=== PATIENT | male | born 1950 | race Caucasian/White ===

== ENCOUNTER 2018-07-22 18:21 | Inpatient (IN) | payer MEDICARE, OTHER, SELFPAY ==
[2018-07-22] VITALS (16 sets, daily range): BP systolic 125–143; BP diastolic 51–81; PULSE 116–129; RESP 20–38; TEMP 35.7–37.3; O2SAT 93–98; BMI 23.2; BMI 22.4
--- NOTE | 2018-07-22 19:06 | RAD_ITS ---
STUDY: X-RAY CHEST REASON FOR EXAM: Male, 68 years old. Cough, dyspnea TECHNIQUE: Single frontal view COMPARISON: None. FINDINGS: Sternotomy wires of the mediastinum. The lungs are expanded. Right basilar consolidation. Normal size heart. Normal mediastinum and kyra. Normal visualized pulmonary arteries. Calcified aortic arch and descending thoracic aorta. Normal visualized thoracic spine. Normal visualized ribs, clavicles, and shoulders. There is no demonstrated abnormality of the visualized soft tissue structures of the upper abdomen. RAD/Chest 1 View (Portable) IMPRESSION: Right basilar consolidation. Electronically Signed: César Moore DO at 21:11 EDT Tel [phone], Service support ,
--- NOTE | 2018-07-22 19:07 | EKG12_ITS ---
Test Reason : Blood Pressure : / mmHG Vent. Rate : 122 BPM Atrial Rate : 122 BPM P-R Int : 224 ms QRS Dur : 108 ms QT Int : 332 ms P-R-T Axes : 047 027 151 degrees QTc Int : 473 ms Sinus tachycardia with 1st degree A-V block Incomplete left bundle branch block ST & T wave abnormality, consider inferolateral ischemia Abnormal ECG Confirmed by DENIS CONROY, VILLA ([id number]), map editor CHAVO POMPA ([id number]) on 07/25/2018 1:48:28 PM Referred By: Gulshan Cabrera Confirmed By:VILLA BARRIOS MD
--- NOTE | 2018-07-22 19:13 | ED.DCSUM_ITS ---
- ER Visit Summary Date of Service: 07/22/18 Chief Complaint: Generalized weakness and nosebleed History of Present Illness: The patient is a 68 M history of myelodysplastic syndrome in which she gets blood transfusions. Acs-ycbbxry-wjfeyaqyp diabetes CAD, IN and CHF. Patient states he has not felt well recently. He has been so weak all over. Today he developed a nosebleed. He is on both Plavix and aspirin. He denies any nasal trauma. He denies any hematemesis or melena. He denies any fever but has had a cough and some vomiting. Physical Examination: Elderly male appears ill and weak. Vital signs are stable temperature 991 on oxygen he is 93%. HEENT exam mild nosebleed bilaterally. The nosebleed as she looks like is coming from the tip of his nose and not even inside of it. It looks like there is some abrasion there that was causing the bleeding. Very dry mucous membranes. Atraumatic face and scalp. Neck nontender no JVD. Lungs coarse breath sounds. Diminished right base. Heart tachycardic no murmur. Abdomen soft and nontender. No peritoneal signs. Moving all 4 extremities. Calves nontender without edema. Back nontender. Neurologically is awake and alert with no focal motor deficits. Test Results: Chest x-ray appears to have a right lower lobe opacification consistent with a right lower lobe pneumonia. No old chest x-rays available for comparison. EKG sinus tachycardia rate of 122 with a left bundle branch block of elbow for comparison. CBC shows a white count of 7. Hemoglobin 5.7 platelet count 126. Again no old labs available for comparison. Electrolytes unremarkable gap is 7 creatinine 1.1. INR normal. UA pending is not tried to make urine as of yet. Troponin is normal. Emergency Department Course and Treatment: Elderly male with generalized weakness. Clinically looks dehydrated and is tachycardic. Also with a nosebleed. Afrin nasal soaked cotton balls of both nasal passageways to stop the bleeding. Patient started on IV Rocephin and Zithromax his right lower lobe pneumonia. He has been typed and crossed and we have ordered 2 units to be transfused which were waiting on. He is already spoken to the hospitalist is down in the emergency department and will evaluate the patient for admission to either PCU or ICU. Treatment Plan: Admission for IV antibiotics. Disposition: Admission Impression: Acute right lower lobe pneumonia with hypoxia Acute on chronic anemia with a history of myelodysplastic syndrome In need of blood transfusions x2 Acute nosebleed Right anterior nasal pack placed by ER (Merisel pack) Anticoagulated on Plavix and aspirin Hypoxia This note was generated with [employer] dictation software. It may contain incorrect words, spelling, and punctuation that were not noted in review of the chart prior to signing
[2018-07-22] MEDS: 0.9% Normal Saline 1,000 ML 1000 ML IV (19:21)
[2018-07-22 19:28] LABS: Absolute Lymphocyte Count 0.65 X10^3/ul (0.83-4.51); Absolute Neutrophil Count 6.5 X10^3/uL (2.0-7.7); Basophil# 0.01 X10^3/uL; Basophil% 0.1 % (0-1); Hematocrit 17.8 % (40-54); International Normalized Ratio 1.6; Lymphocyte # 0.65 X10^3/ul (4.0); Lymphocyte % 8.2 % (19-41); Mean Corpuscular Hgb 28.4 pg (27.0-32.0); Mean Corpuscular Volume 88.6 fL (80-94); Mean Platelet Vol. 10.1 fl (6.2-12.0); Monocyte% 8.9 % (0-10); Neutrophil # 6.48 X10^3/uL (2.7-7.7); Platelet Count 126 K/mm3 (150-450); Prothrombin Time (Protime)PT. 18.7 SECONDS (11.7-14.9); RBC Distribution Width CV 20.8 % (11.6-14.6); RBC Distribution Width SD 67.7 fl (35.1-43.9); Red Blood Count 2.01 M/mm3 (4.6-6.2); White Blood Count 7.9 K/mm3 (4.4-11.0)
[2018-07-22 19:30] LABS: Differential Indicated SCAN CRITERIA MET; POSITIVE COUNT YES; POSITIVE DIFFERENTIAL NO; POSITIVE MORPHOLOGY YES
[2018-07-22 19:31] LABS: Hemoglobin 5.7 g/dl (13.0-16.5)
--- NOTE | 2018-07-22 19:34 | ED.RN ---
dr. taylor informed of pt hemoglobin 5.7.
[2018-07-22 19:37] LABS: Anion Gap 7 (5-15); BUN 21 mg/dL (7-18); BUN/Creat Ratio 18.1 RATIO (10-20); Calcium,Total 8.4 mg/dL (8.5-10.1); Chloride 108 mmol/L (98-107); Creatinine, Serum 1.16 mg/dL (0.70-1.30); EST Glomerular Filtration Rate 66 mL/min (>60); Est Glom Filt Rate - Afr Amer 80 mL/min (>60); Estimated Creatinine Clearance 59.26 ml/min; Glucose 138 mg/dL (74-106); Potassium 3.8 mmol/L (3.5-5.1); Sodium Level 138 mmol/L (136-145)
[2018-07-22 19:48] LABS: Anisocytosis 2+; Differential Comment SCANNED; Ovalocyte 1+
--- NOTE | 2018-07-22 20:33 | NURSING ---
[facility] AND TALKED TO CYNTHIA AND WAS INFORMED THEY HAD NO AVAILABLE BEDS AND PATIENT CAN BE ADMITTED HERE
[2018-07-22] MEDS: Oxymetazoline 0.05% 1 SPRAY SPRAY.BTL 2 SPRAY NASAL (20:38)
[2018-07-22 20:51] LABS: Lactic Acid 1.8 mmol/L (0.4-2.0)
[2018-07-22 20:59] LABS: Bacteria 0 SEEN /hpf (None Seen); Mucous, Urine 0 SEEN /hpf (<or=2+); Red Blood Cells-Urine 0 SEEN /hpf (0-5); Squamous Epithelial Cells - UA 0 SEEN /hpf (0-5)
[2018-07-22 21:12] LABS: Color, Urine Yellow (Yellow); Glucose, Dipstick Normal (Normal); Ketone-Dipstick 15 mg/dl (Negative); Leukocyte Esterase-Dipstick 25 /ul (Negative); Nitrite-Dipstick Negative (Negative); Occult Blood-Urine 25 /ul (Negative); Protein-Dipstick 100 mg/dl (Negative); Specific Gravity, Urine 1.015 (1.002-1.030); Urine Clarity Clear (Clear); Urine Urobilinogen 4 mg/dl (Normal)
[2018-07-22] MEDS: Ceftriaxone 1 GM/50 ML BAG IV (21:13)
[2018-07-22 21:16] LABS: Urine Bilirubin Dipstick 1 mg/dL (Negative)
[2018-07-22 21:22] LABS: Amorphous Sediment 1+; White Blood Cells 0-5 SEEN /hpf (0-5)
--- NOTE | 2018-07-22 21:29 | HP.PCM_ITS ---
Problem List (1) Generalized weakness Status: Acute (2) Epistaxis Status: Acute History of Present Illness Date of Admission: 07/22/18 Chief Complaint: Epistaxis, generalized weakness The patient is a 68 year old M who was seen in the emergency room at [facility] with chief complaint of generalized weakness over the last several days along with a nosebleed today. Patient has a history of MDS and states that he receives blood transfusions monthly from the [facility]. Patient sees physicians at the [facility] and has no records at this facility. Patient complains of a cough but states he has been coughing over the last several months. Evaluation in the emergency room included a chest x-ray which showed a right lower lobe infiltrate, patient's white blood cell count was normal, patient's he moglobin was 5.7, platelet count was 126,000. Patient's glucose was 138, BUN was slightly elevated at 21, otherwise patient's chemistry profile was unremarkable. Patient's urinalysis did not indicate a urinary tract infection. Patient required 2 L of oxygen to maintain his pulse ox above 90%. Patient's nosebleed was minor, small amount of packing was applied to the nares and bleeding stopped immediately. Patient will be admitted for acute on chronic anemia secondary to MDS, right lower lobe community-acquired pneumonia, and hypoxia. Past Medical History Allergies No Known Allergies Allergy (Verified 07/22/18 18:24) Home Medications: Ambulatory Orders Medication Instructions Recorded Acetaminophen 325 mg PO Q6H PRN PRN 07/22/18 Aspirin [Adult Aspirin Regimen] 81 mg PO DAILY 07/22/18 Atorvastatin Calcium 40 mg PO QHS 07/22/18 Cholecalciferol (Vitamin D3) 2,000 unit PO DAILY 07/22/18 [Vitamin D3] Clopidogrel Bisulfate [Clopidogrel] 75 mg PO DAILY 07/22/18 Gabapentin [Neurontin] 300 mg PO QHS 07/22/18 Metoprolol Tartrate [Lopressor 50 mg PO BID 07/22/18 (Beta Maria Esther)] Sertraline HCl 150 mg PO DAILY 07/22/18 traZODone [Desyrel] 50 mg PO QHS 07/22/18 Surgical History: coronary bypass surgery, - - Aortic valve replacement Psychiatric History: No pertinent psych hx Lives: Alone Smoking Status: Current every day smoker Tobacco Use: Cigarettes Alcohol: None Drugs: None - *Family History Maternal History Items: No pertinent history Paternal History Items: No pertinent history Review of Systems Constitutional: Reports: Weakness, Fatigue. Denies: Anorexia, Chills, Fever, Night Sweats, Weight Change Eyes: Denies: Cataracts, Conjunctivae Inflammation, Double vision, Drainage, Redness, Vision Change HEENT: Reports: - - Nosebleed which started today from both nostrils. Denies: Difficulty Swallowing, Dysphasia, Ear Pain, Eye Pain, Head Aches, Hearing Changes, Nasal Congestion, Post Nasal Drip Cardiovascular: Denies: Chest Pain, Claudication, Chest Pressure, Chest Tightness, Edema, Heaviness, Orthopnea, Palpitations, Paroxysmal Noc. Dyspnea Respiratory: Reports: Cough - Chronic nonproductive cough. Denies: Hemoptysis, Pleuritic Pain, Shortness of Breath, Shortness of breath at rest, Shortness of breath upon exertion, Sputum production, Wheezing Gastrointestinal: Denies: Abdominal Pain, Constipation, Diarrhea, Hematemesis, Hematochezia, Nausea, Melena, Vomiting Genitourinary: Denies: Dysuria, Frequency, Hematuria, Hesitancy, Nocturia, Retention, Urgency Musculoskeletal: Denies: Back Pain, Foot Pain, Hand Pain, Joint Pain, Joint stiffness, Joint swelling, Joint Tenderness, Leg Pain Skin: Denies: Dryness, Jaundice, Pruritis, Rash Neurological: Denies: Blurred vision, Double vision, Change in Speech, Slurred speech, Difficulty swallowing, Focal weakness, Headaches, Incoordination, Numbness, Tingling Psychiatric: Denies: Anxiety, Depression, Homicidal Ideations, Suicidal Ideations Endocrine: Denies: Change in Body Habitus, Heat/ Cold Intolerance, Polydipsia, Polyuria Hematologic/ Lymphatic: Denies: Adenopathy, Anemia, Easy Bruising, Easy B leeding, Petechiae, Purpura VTE Information - Inpt Only VTE Present on Admission: No VTE Mechan Device Prophylaxis: SCD's VTE Pharm Prophylaxis ordered?: No Reason prophylaxis not ordered:: Medical Contraindication - Severe anemia, nosebleed Patient Problems: Active and Suspected Problems Generalized weakness (Acute) Epistaxis (Acute) - Physical Exam General: Alert, Oriented x3, Cooperative, No apparent distress, Well developed, - - Patient appears frail HEENT: Atraumatic, PERRLA, EOMI, Normocephalic Oral: Moist Mucosa Neck: Supple, No JVD, Negative Carotid Bruits, Trachea Midline, Thyroid Normal Size and Texture Lungs: Normal air movement, No rhonchi, No wheeze, Diminished - Managed breath sounds over the patient's right lower lobe Cardiovascular: Regular rate, Regular Rhythm, Normal S1, No murmurs, PMI Normal, No rub noted, Tachycardic Abdomen: Bowel Sounds Present, Soft, Non Tender, Non-Distended, No hernias noted Extremities: No clubbing, No cyanosis, No edema, Capillary Refill Less than 3 Seconds Skin: No rashes, No breakdown Musculoskeletal: No Tenderness to Palpation of Joints or Extremities Neurological: Cranial nerves II-XII grossly intact, Neuro grossly intact, Muscle tone normal, Sensory exam intact to light touch and pain Psych/Mental Status: Normal Affect, Appropriate, Alert and oriented to time, place, person, mood and affect Vital Signs Temp Pulse Resp BP Pulse Ox 98.0 F 123 H 30 H 136/62 H 96 07/22/18 20:02 07/22/18 20:56 07/22/18 20:56 07/22/18 20:56 07/22/18 20:56 Oxygen Flow Rate (L/min) 2 Oxygen Delivery Method Nasal Cannula Weight: 71.3 kg Body Mass Index (BMI) 23.2 Laboratory Tests Past 24 Hrs 07/22/18 07/22/18 07/22/18 18:40 18:40 18:40 WBC 7.9 RBC 2.01 L Hgb 5.7 L* Hct 17.8 L MCV 88.6 MCH 28.4 MCHC 32.0 RDW 20.8 H RDW Differential 67.7 H Plt Count 126 L MPV 10.1 Immature Gran % (Auto) 0.800 Neut % (Auto) 82.0 H Lymph % (Auto) 8.2 L Placer % (Auto) 8.9 Eos % (Auto) 0.0 Baso % (Auto) 0.1 Absolute Neuts (auto) 6.5 Absolute Lymphs (auto) 0.65 L Total Counted Not Reportable Differential Comment SCANNED Anisocytosis 2+ Ovalocytes 1+ PT 18.7 H INR 1.6 Sodium 138 Potassium 3.8 Chloride 108 H Carbon Dioxide 23.0 Anion Gap 7 BUN 21 H Creatinine 1.16 Estim Creat Clear Calc 59.26 Est GFR (MDRD) Af Amer 80 Est GFR (MDRD) Non-Af 66 BUN/Creatinine Ratio 18.1 Glucose 138 H Lactic Acid Calcium 8.4 L Troponin I < 0.015 Urine Color Urine Clarity Urine pH Ur Specific [place] Urine Protein Urine Glucose (UA) Urine Ketones Urine Occult Blood Urine Nitrite Urine Bilirubin Urine Urobilinogen Ur Leukocyte Esterase Urine RBC Urine WBC Ur Squamous Epith Cells Amorphous Sediment Urine Bacteria Urine Mucus Blood Type Antibody Screen Crossmatch 07/22/18 07/22/18 07/22/18 18:40 19:35 20:55 WBC RBC Hgb Hct MCV MCH MCHC RDW RDW Differential Plt Count MPV Immature Gran % (Auto) Neut % (Auto) Lymph % (Auto) Placer % (Auto) Eos % (Auto) Baso % (Auto) Absolute Neuts (auto) Absolute Lymphs (auto) Total Counted Differential Comment Anisocytosis Ovalocytes PT INR Sodium Potassium Chloride Carbon Dioxide Anion Gap BUN Creatinine Estim Creat Clear Calc Est GFR (MDRD) Af Amer Est GFR (MDRD) Non-Af BUN/Creatinine Ratio Glucose Lactic Acid 1.8 Calcium Troponin I Urine Color Yellow Urine Clarity Clear Urine pH 5.0 Ur Specific [place] 1.015 Urine Protein 100 H Urine Glucose (UA) Normal Urine Ketones 15 H Urine Occult Blood 25 H Urine Nitrite Negative Urine Bilirubin 1 H Urine Urobilinogen 4 H Ur Leukocyte Esterase 25 H Urine RBC 0 SEEN Urine WBC 0-5 SEEN Ur Squamous Epith Cells 0 SEEN Amorphous Sediment 1+ Urine Bacteria 0 SEEN Urine Mucus 0 SEEN Blood Type B POSITIVE Antibody Screen NEGATIVE Crossmatch See Detail Assessment/Plan All Active Problems Generalized weakness (Acute) Epistaxis (Acute) #1 acute on chronic anemia secondary to MDS-patient will be admitted to PCU, he will have packed red blood cells administered, labs will be monitored #2 right lower lobe community-acquired pneumonia-patient was given Rocephin and Zithromax, he will remain on these medications, urine antigens for Legionella and strep were ordered, sputum culture was ordered #3 coronary artery disease-this appears stable at this time #4 MDS #5 type 2 diabetes-it appears patient takes no medications for his type 2 diabetes, blood sugars will be monitored #6 hypoxia secondary to #2 Code Visit Inpatient E&M: 29214 Init Hosp L3
--- NOTE | 2018-07-22 22:57 | ED.RN ---
PT RIGHT NOSTRIL STILL BLEEDING SLOWLY. DR KRUEGER INFORMED. NOSE PACKED BY DR. KRUEGER USING MEROCEL.
[2018-07-22] MEDS: Metoprolol Tartrate 50 MG Tablet PO (23:50)
[2018-07-22] MEDS: 0.9% Normal Saline 1,000 ML 75 ML IV (23:51)
[2018-07-23] VITALS (25 sets, daily range): BP systolic 133–148; BP diastolic 61–78; PULSE 90–153; RESP 20–28; TEMP 36.7–37.1; O2SAT 82–100
[2018-07-23 00:05] LABS: Bedside Glucose 134 mg/dL (70-110)
[2018-07-23] MEDS: Furosemide 40 MG/4 ML Vial IV ×2 (00:08→12:18)
[2018-07-23 04:56] LABS: Absolute Lymphocyte Count 0.57 X10^3/ul (0.83-4.51); Absolute Neutrophil Count 6.7 X10^3/uL (2.0-7.7); BUN 21 mg/dL (7-18); Basophil# 0.02 X10^3/uL; Basophil% 0.2 % (0-1); Creatinine, Serum 1.09 mg/dL (0.70-1.30); Eosinophil# 0.01 X10^3/uL; Eosinophils% 0.1 % (0-5); Estimated Creatinine Clearance 61.01 ml/min; Glucose 139 mg/dL (74-106); Hemoglobin 7.9 g/dl (13.0-16.5); Lymphocyte # 0.57 X10^3/ul (4.0); Lymphocyte % 6.8 % (19-41); Mean Corp Hgb Conc 32.9 g/gl (32-36); Mean Corpuscular Hgb 28.5 pg (27.0-32.0); Mean Corpuscular Volume 86.6 fL (80-94); Monocyte# 0.92 X10^3/uL; Monocyte% 10.9 % (0-10); Neutrophil # 6.71 X10^3/uL (2.7-7.7); Neutrophil % 79.7 % (47-70); Platelet Count 125 K/mm3 (150-450); RBC Distribution Width CV 18.1 % (11.6-14.6); RBC Distribution Width SD 54.4 fl (35.1-43.9); Red Blood Count 2.77 M/mm3 (4.6-6.2); White Blood Count 8.4 K/mm3 (4.4-11.0)
[2018-07-23 04:57] LABS: Anion Gap 9 (5-15); BUN/Creat Ratio 19.3 RATIO (10-20); Calcium,Total 7.8 mg/dL (8.5-10.1); Chloride 110 mmol/L (98-107); EST Glomerular Filtration Rate 71 mL/min (>60); Est Glom Filt Rate - Afr Amer 86 mL/min (>60); POSITIVE COUNT YES; POSITIVE DIFFERENTIAL YES; POSITIVE MORPHOLOGY YES; Potassium 3.5 mmol/L (3.5-5.1); Sodium Level 141 mmol/L (136-145)
[2018-07-23 04:58] LABS: Differential Indicated SCAN CRITERIA MET
[2018-07-23 06:51] LABS: Bedside Glucose 129 mg/dL (70-110)
[2018-07-23] MEDS: Ipratropium/Albuterol Sulfate 3 ML AMPUL.NEB INHALATION ×3 (07:32→19:32)
[2018-07-23] MEDS: BMX LIQUID 180 ML 10 ML PO ×2 (08:10→23:04)
[2018-07-23] MEDS: Sertraline 100 MG Tablet 150 MG PO (08:10)
[2018-07-23] MEDS: Aspirin E.C. 81 MG Tablet PO (08:10)
[2018-07-23] MEDS: Metoprolol Tartrate 50 MG Tablet PO ×2 (08:10→22:59)
--- NOTE | 2018-07-23 10:11 | NURSING ---
Student nurse charting reviewed.
[2018-07-23] MEDS: Menthol/Lanolin/Calamine/Znox 113 GM Tube 1 APPLIC TOPICAL ×2 (11:24→22:58)
[2018-07-23 11:45] LABS: Bedside Glucose 137 mg/dL (70-110)
--- NOTE | 2018-07-23 11:56 | PCM.PROGNOTE ---
<Elizabeth Lee - Last Filed: 07/23/18 12:57> Patient Problems: Active and Suspected Problems Generalized weakness (Acute) Epistaxis (Acute) Subjective: Patient seen and examined. Reports increased work of breathing this morning. Denies chest pain. Reports productive cough with white/yellow sputum. Denies fever, chills. - Physical Exam General: Alert, Oriented x3, Cooperative HEENT: Atraumatic, PERRLA, EOMI, Normocephalic, - - Right nasal packing Oral: Dry Mucosa, - - Dried blood in mouth Neck: Supple, No JVD, Negative Carotid Bruits Lungs: Diminished, Rhonchi, - - Coarse breath sounds bilaterally Cardiovascular: Regular rate, Regular Rhythm, Normal S1, Normal S2, No murmurs Abdomen: Bowel Sounds Present, Soft, Non Tender, Non-Distended Extremities: No clubbing, No cyanosis, No edema, Capillary Refill Less than 3 Seconds Skin: No rashes, No breakdown Musculoskeletal: No Tenderness to Palpation of Joints or Extremities Neurological: Cranial nerves II-XII grossly intact, Neuro grossly intact Psych/Mental Status: Normal Affect, Appropriate Vital Signs Temp Pulse Resp BP Pulse Ox 98.4 F 94 20 H 146/75 H 93 07/23/18 10:05 07/23/18 10:05 07/23/18 10:05 07/23/18 10:05 07/23/18 10:05 Oxygen Flow Rate (L/min) 2 Oxygen Delivery Method Nasal Cannula Weight: 151 lb 14.376 oz Body Mass Index (BMI) 22.4 Intake and Output for Last 24 Hours 07/21/18 07/22/18 07/23/18 23:59 23:59 23:59 Intake Total 724 / 724 1552 / 1552 Output Total 950 / 950 Balance 724 / 724 602 / 602 Microbiology Past 72 Hours 07/23/18 00:50 Legionella Antigen - Final Urine, Clean Catch 07/23/18 00:50 Streptococcus pneumoniae Antigen (M - Final Urine, Clean Catch Laboratory Tests Past 24 Hrs 07/22/18 07/22/18 07/22/18 18:40 18:40 18:40 WBC 7.9 RBC 2.01 L Hgb 5.7 L* Hct 17.8 L MCV 88.6 MCH 28.4 MCHC 32.0 RDW 20.8 H RDW Differential 67.7 H Plt Count 126 L MPV 10.1 Immature Gran % (Auto) 0.800 Neut % (Auto) 82.0 H Lymph % (Auto) 8.2 L [place] % (Auto) 8.9 Eos % (Auto) 0.0 Baso % (Auto) 0.1 Absolute Neuts (auto) 6.5 Absolute Lymphs (auto) 0.65 L Total Counted Not Reportable Differential Comment SCANNED Diff Path Review Anisocytosis 2+ Ovalocytes 1+ PT 18.7 H INR 1.6 Sodium 138 Potassium 3.8 Chloride 108 H Carbon Dioxide 23.0 Anion Gap 7 BUN 21 H Creatinine 1.16 Estim Creat Clear Calc 59.26 Est GFR (MDRD) Af Amer 80 Est GFR (MDRD) Non-Af 66 BUN/Creatinine Ratio 18.1 Glucose 138 H Lactic Acid Calcium 8.4 L Troponin I < 0.015 Urine Color Urine Clarity Urine pH Ur Specific [place] Urine Protein Urine Glucose (UA) Urine Ketones Urine Occult Blood Urine Nitrite Urine Bilirubin Urine Urobilinogen Ur Leukocyte Esterase Urine RBC Urine WBC Ur Squamous Epith Cells Amorphous Sediment Urine Bacteria Urine Mucus Blood Type Antibody Screen Crossmatch 07/22/18 07/22/18 07/22/18 18:40 19:35 20:55 WBC RBC Hgb Hct MCV MCH MCHC RDW RDW Differential Plt Count MPV Immature Gran % (Auto) Neut % (Auto) Lymph % (Auto) [place] % (Auto) Eos % (Auto) Baso % (Auto) Absolute Neuts (auto) Absolute Lymphs (auto) Total Counted Differential Comment Diff Path Review Anisocytosis Ovalocytes PT INR Sodium Potassium Chloride Carbon Dioxide Anion Gap BUN Creatinine Estim Creat Clear Calc Est GFR (MDRD) Af Amer Est GFR (MDRD) Non-Af BUN/Creatinine Ratio Glucose Lactic Acid 1.8 Calcium Troponin I Urine Color Yellow Urine Clarity Clear Urine pH 5.0 Ur Specific [place] 1.015 Urine Protein 100 H Urine Glucose (UA) Normal Urine Ketones 15 H Urine Occult Blood 25 H Urine Nitrite Negative Urine Bilirubin 1 H Urine Urobilinogen 4 H Ur Leukocyte Esterase 25 H Urine RBC 0 SEEN Urine WBC 0-5 SEEN Ur Squamous Epith Cells 0 SEEN Amorphous Sediment 1+ Urine Bacteria 0 SEEN Urine Mucus 0 SEEN Blood Type B POSITIVE Antibody Screen NEGATIVE Crossmatch See Detail 07/23/18 07/23/18 04:30 04:30 WBC 8.4 RBC 2.77 L Hgb 7.9 L Hct 24.0 L MCV 86.6 MCH 28.5 MCHC 32.9 RDW 18.1 H RDW Differential 54.4 H Plt Count 125 L MPV 10.0 Immature Gran % (Auto) 2.300 H Neut % (Auto) 79.7 H Lymph % (Auto) 6.8 L [place] % (Auto) 10.9 H Eos % (Auto) 0.1 Baso % (Auto) 0.2 Absolute Neuts (auto) 6.7 Absolute Lymphs (auto) 0.57 L Total Counted Not Reportable Differential Comment Diff Path Review May foll Anisocytosis Ovalocytes PT INR Sodium 141 Potassium 3.5 Chloride 110 H Carbon Dioxide 22.0 Anion Gap 9 BUN 21 H Creatinine 1.09 Estim Creat Clear Calc 61.01 Est GFR (MDRD) Af Amer 86 Est GFR (MDRD) Non-Af 71 BUN/Creatinine Ratio 19.3 Glucose 139 H Lactic Acid Calcium 7.8 L Troponin I Urine Color Urine Clarity Urine pH Ur Specific [place] Urine Protein Urine Glucose (UA) Urine Ketones Urine Occult Blood Urine Nitrite Urine Bilirubin Urine Urobilinogen Ur Leukocyte Esterase Urine RBC Urine WBC Ur Squamous Epith Cells Amorphous Sediment Urine Bacteria Urine Mucus Blood Type Antibody Screen Crossmatch POC Glucose 07/23/18 07/23/18 07/22/18 11:24 06:38 23:49 POC Glucose 137 H 129 H 134 H Medical Necessity - Tobacco Use Smoking Status: Current every day smoker Tobacco Use: Cigarettes Assessment/Plan All Active Problems Generalized weakness (Acute) Epistaxis (Acute) 1. 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 Trend CBC. 2. Acute hypoxia secondary to right lower lobe community-acquired pneumonia-chest x-ray admission with right basilar consolidation. Send sputum for culture. Continue supplement oxygen to maintain O2 at or above 90%. Albuterol and DuoNeb aerosol. Continue IV azithromycin and IV Rocephin. Urine for strep and Legionella negative. Blood cultures pending. IS/PEP. 3. Acute Epistaxis, right nasal packing in place- placed in ER. Hold aspirin, plavix. Outpatient f/u with ENT. 4. CAD-continue metoprolol, statin. Hold aspirin, Plavix. Patient denies history of stents. Unsure why he is on dual antiplatelet therapy. Will request records from [place]. 5. History of aortic valve repair 6. Type 2 diabetes mellitus-not on regimen. Accu-Cheks AC at bedtime with sliding scale insulin. Check hemoglobin A1c. 7. Depression-continue home sertraline/trazodone regimen. DVT prophylaxis-hold pharmacologic prophylaxis given epistaxis, SCDs. This patient was seen by RILEY Ramirez under the supervision of Dr. Ann. <Arvind Ann - Last Filed: 07/23/18 16:00> Subjective: No fever or chills. Patient has productive cough and audible wheezing. Respiratory rate 22-26/min. On 2 L of oxygen. Patient is edentulous and suspicion of aspiration. Patient has MDS and had epistaxis. Right nasal packing. H&H was 5.7/17.8 improved to 7.9/24. Platelet count 126,000. - Physical Exam General: Alert, Oriented x3, Cooperative HEENT: Atraumatic, PERRLA, EOMI, Normocephalic, - Oral: - - Dried blood in mouth Since patient pockets food in his mouth. Neck: Supple, No JVD, Negative Carotid Bruits Lungs: Diminished, Rhonchi, Short of Breath, Tachypneic, Wheezes, - Cardiovascular: Regular rate, Regular Rhythm, Normal S1, Normal S2, No murmurs Abdomen: Bowel Sounds Present, Soft, Non Tender, Non-Distended Extremities: No edema, Capillary Refill Less than 3 Seconds Skin: No rashes, No breakdown Musculoskeletal: No Tenderness to Palpation of Joints or Extremities, Arthritic Changes, Muscle Wasting Lymphatic: No Cervical, Supraclavicular, or Inguinal Adenopathy Neurological: Cranial nerves II-XII grossly intact, Deep Tendon Reflexes 2+/4 and Symmetrical, Neuro grossly intact Psych/Mental Status: Normal Affect, Appropriate Vital Signs Temp Pulse Resp BP Pulse Ox 98.1 F 106 H 22 H 136/75 H 99 07/23/18 14:01 07/23/18 15:00 07/23/18 14:01 07/23/18 14:01 07/23/18 14:01 Oxygen Flow Rate (L/min) 2 Oxygen Delivery Method Room Air Weight: 151 lb 14.376 oz Body Mass Index (BMI) 22.4 Intake and Output for Last 24 Hours 07/21/18 07/22/18 07/23/18 23:59 23:59 23:59 Intake Total 724 / 724 1842 / 1842 Output Total 1550 / 1550 Balance 724 / 724 292 / 292 Microbiology Past 72 Hours 07/23/18 00:50 Legionella Antigen - Final Urine, Clean Catch 07/23/18 00:50 Streptococcus pneumoniae Antigen (M - Final Urine, Clean Catch Laboratory Tests Past 24 Hrs 07/22/18 07/22/18 07/22/18 18:40 18:40 18:40 WBC 7.9 RBC 2.01 L Hgb 5.7 L* Hct 17.8 L MCV 88.6 MCH 28.4 MCHC 32.0 RDW 20.8 H RDW Differential 67.7 H Plt Count 126 L MPV 10.1 Immature Gran % (Auto) 0.800 Neut % (Auto) 82.0 H Lymph % (Auto) 8.2 L [place] % (Auto) 8.9 Eos % (Auto) 0.0 Baso % (Auto) 0.1 Absolute Neuts (auto) 6.5 Absolute Lymphs (auto) 0.65 L Total Counted Not Reportable Differential Comment SCANNED Diff Path Review Anisocytosis 2+ Ovalocytes 1+ PT 18.7 H INR 1.6 Sodium 138 Potassium 3.8 Chloride 108 H Carbon Dioxide 23.0 Anion Gap 7 BUN 21 H Creatinine 1.16 Estim Creat Clear Calc 59.26 Est GFR (MDRD) Af Amer 80 Est GFR (MDRD) Non-Af 66 BUN/Creatinine Ratio 18.1 Glucose 138 H Hemoglobin A1c Lactic Acid Calcium 8.4 L Troponin I < 0.015 Urine Color Urine Clarity Urine pH Ur Specific [place] Urine Protein Urine Glucose (UA) Urine Ketones Urine Occult Blood Urine Nitrite Urine Bilirubin Urine Urobilinogen Ur Leukocyte Esterase Urine RBC Urine WBC Ur Squamous Epith Cells Amorphous Sediment Urine Bacteria Urine Mucus Blood Type Antibody Screen Crossmatch 07/22/18 07/22/18 07/22/18 18:40 19:35 20:55 WBC RBC Hgb Hct MCV MCH MCHC RDW RDW Differential Plt Count MPV Immature Gran % (Auto) Neut % (Auto) Lymph % (Auto) [place] % (Auto) Eos % (Auto) Baso % (Auto) Absolute Neuts (auto) Absolute Lymphs (auto) Total Counted Differential Comment Diff Path Review Anisocytosis Ovalocytes PT INR Sodium Potassium Chloride Carbon Dioxide Anion Gap BUN Creatinine Estim Creat Clear Calc Est GFR (MDRD) Af Amer Est GFR (MDRD) Non-Af BUN/Creatinine Ratio Glucose Hemoglobin A1c Lactic Acid 1.8 Calcium Troponin I Urine Color Yellow Urine Clarity Clear Urine pH 5.0 Ur Specific [place] 1.015 Urine Protein 100 H Urine Glucose (UA) Normal Urine Ketones 15 H Urine Occult Blood 25 H Urine Nitrite Negative Urine Bilirubin 1 H Urine Urobilinogen 4 H Ur Leukocyte Esterase 25 H Urine RBC 0 SEEN Urine WBC 0-5 SEEN Ur Squamous Epith Cells 0 SEEN Amorphous Sediment 1+ Urine Bacteria 0 SEEN Urine Mucus 0 SEEN Blood Type B POSITIVE Antibody Screen NEGATIVE Crossmatch See Detail 07/23/18 07/23/18 07/23/18 04:30 04:30 04:30 WBC 8.4 RBC 2.77 L Hgb 7.9 L Hct 24.0 L MCV 86.6 MCH 28.5 MCHC 32.9 RDW 18.1 H RDW Differential 54.4 H Plt Count 125 L MPV 10.0 Immature Gran % (Auto) 2.300 H Neut % (Auto) 79.7 H Lymph % (Auto) 6.8 L [place] % (Auto) 10.9 H Eos % (Auto) 0.1 Baso % (Auto) 0.2 Absolute Neuts (auto) 6.7 Absolute Lymphs (auto) 0.57 L Total Counted Not Reportable Differential Comment Diff Path Review May foll Anisocytosis Ovalocytes PT INR Sodium 141 Potassium 3.5 Chloride 110 H Carbon Dioxide 22.0 Anion Gap 9 BUN 21 H Creatinine 1.09 Estim Creat Clear Calc 61.01 Est GFR (MDRD) Af Amer 86 Est GFR (MDRD) Non-Af 71 BUN/Creatinine Ratio 19.3 Glucose 139 H Hemoglobin A1c < 3.5 L Lactic Acid Calcium 7.8 L Troponin I Urine Color Urine Clarity Urine pH Ur Specific [place] Urine Protein Urine Glucose (UA) Urine Ketones Urine Occult Blood Urine Nitrite Urine Bilirubin Urine Urobilinogen Ur Leukocyte Esterase Urine RBC Urine WBC Ur Squamous Epith Cells Amorphous Sediment Urine Bacteria Urine Mucus Blood Type Antibody Screen Crossmatch POC Glucose 07/23/18 07/23/18 07/22/18 11:24 06:38 23:49 POC Glucose 137 H 129 H 134 H Assessment/Plan This patient was seen in conjunction with [employer]. I have independently interviewed and examined the patient and reviewed pertinent history, examination findings, laboratory and plan of management. I have reviewed the note and agree with the documented findings with the few additional points. In brief, patient is admitted for acute on chronic anemia with history of MDS with recent epistaxis. Had 2 units of PRBC transfusion. H&H was 5.7/17.8 improved to 7.9/24. Platelet count 126,000. Patient is still has tachypnea, hypoxia with mild tachycardia but no fever. Right lower lobe consolidation on chest x-ray. Was started on ceftriaxone and Zithromax but with risk of aspiration antibiotic changed to Zosyn. Speech therapy was consulted. Recommend dysphagia diet mechanical soft diet unless changed by speech therapist. I have discussed my assessment with [employer] and orders have been reviewed. Code Visit Inpatient E&M: 92029 Subs Hosp L2
--- NOTE | 2018-07-23 12:11 | PN_ITS ---
Addendum entered and electronically signed by RILEY Ramirez 07/23/18 12:58: Code Visit IV antibiotics changed to Zosyn given concerns for aspiration pneumonia. Speech therapy consulted. Original Note: <Elizabeth Lee - Last Filed: 07/23/18 12:57> Patient Problems: Active and Suspected Problems Generalized weakness (Acute) Epistaxis (Acute) Subjective: Patient seen and examined. Reports increased work of breathing this morning. Denies chest pain. Reports productive cough with white/yellow sputum. Denies fever, chills. - Physical Exam General: Alert, Oriented x3, Cooperative HEENT: Atraumatic, PERRLA, EOMI, Normocephalic, - - Right nasal packing Oral: Dry Mucosa, - - Dried blood in mouth Neck: Supple, No JVD, Negative Carotid Bruits Lungs: Diminished, Rhonchi, - - Coarse breath sounds bilaterally Cardiovascular: Regular rate, Regular Rhythm, Normal S1, Normal S2, No murmurs Abdomen: Bowel Sounds Present, Soft, Non Tender, Non-Distended Extremities: No clubbing, No cyanosis, No edema, Capillary Refill Less than 3 Seconds Skin: No rashes, No breakdown Musculoskeletal: No Tenderness to Palpation of Joints or Extremities Neurological: Cranial nerves II-XII grossly intact, Neuro grossly intact Psych/Mental Status: Normal Affect, Appropriate Vital Signs Temp Pulse Resp BP Pulse Ox 98.4 F 94 20 H 146/75 H 93 07/23/18 10:05 07/23/18 10:05 07/23/18 10:05 07/23/18 10:05 07/23/18 10:05 Oxygen Flow Rate (L/min) 2 Oxygen Delivery Method Nasal Cannula Weight: 151 lb 14.376 oz Body Mass Index (BMI) 22.4 Intake and Output for Last 24 Hours 07/21/18 07/22/18 07/23/18 23:59 23:59 23:59 Intake Total 724 / 724 1552 / 1552 Output Total 950 / 950 Balance 724 / 724 602 / 602 Microbiology Past 72 Hours 07/23/18 00:50 Legionella Antigen - Final Urine, Clean Catch 07/23/18 00:50 Streptococcus pneumoniae Antigen (M - Final Urine, Clean Catch Laboratory Tests Past 24 Hrs 03/29/19 03/29/19 03/29/19 18:40 18:40 18:40 WBC 7.9 RBC 2.01 L Hgb 5.7 L* Hct 17.8 L MCV 88.6 MCH 28.4 MCHC 32.0 RDW 20.8 H RDW Differential 67.7 H Plt Count 126 L MPV 10.1 Immature Gran % (Auto) 0.800 Neut % (Auto) 82.0 H Lymph % (Auto) 8.2 L [place] % (Auto) 8.9 Eos % (Auto) 0.0 Baso % (Auto) 0.1 Absolute Neuts (auto) 6.5 Absolute Lymphs (auto) 0.65 L Total Counted Not Reportable Differential Comment SCANNED Diff Path Review Anisocytosis 2+ Ovalocytes 1+ PT 18.7 H INR 1.6 Sodium 138 Potassium 3.8 Chloride 108 H Carbon Dioxide 23.0 Anion Gap 7 BUN 21 H Creatinine 1.16 Estim Creat Clear Calc 59.26 Est GFR (MDRD) Af Amer 80 Est GFR (MDRD) Non-Af 66 BUN/Creatinine Ratio 18.1 Glucose 138 H Lactic Acid Calcium 8.4 L Troponin I < 0.015 Urine Color Urine Clarity Urine pH Ur Specific [place] Urine Protein Urine Glucose (UA) Urine Ketones Urine Occult Blood Urine Nitrite Urine Bilirubin Urine Urobilinogen Ur Leukocyte Esterase Urine RBC Urine WBC Ur Squamous Epith Cells Amorphous Sediment Urine Bacteria Urine Mucus Blood Type Antibody Screen Crossmatch 07/22/18 07/22/18 07/22/18 18:40 19:35 20:55 WBC RBC Hgb Hct MCV MCH MCHC RDW RDW Differential Plt Count MPV Immature Gran % (Auto) Neut % (Auto) Lymph % (Auto) [place] % (Auto) Eos % (Auto) Baso % (Auto) Absolute Neuts (auto) Absolute Lymphs (auto) Total Counted Differential Comment Diff Path Review Anisocytosis Ovalocytes PT INR Sodium Potassium Chloride Carbon Dioxide Anion Gap BUN Creatinine Estim Creat Clear Calc Est GFR (MDRD) Af Amer Est GFR (MDRD) Non-Af BUN/Creatinine Ratio Glucose Lactic Acid 1.8 Calcium Troponin I Urine Color Yellow Urine Clarity Clear Urine pH 5.0 Ur Specific [place] 1.015 Urine Protein 100 H Urine Glucose (UA) Normal Urine Ketones 15 H Urine Occult Blood 25 H Urine Nitrite Negative Urine Bilirubin 1 H Urine Urobilinogen 4 H Ur Leukocyte Esterase 25 H Urine RBC 0 SEEN Urine WBC 0-5 SEEN Ur Squamous Epith Cells 0 SEEN Amorphous Sediment 1+ Urine Bacteria 0 SEEN Urine Mucus 0 SEEN Blood Type B POSITIVE Antibody Screen NEGATIVE Crossmatch See Detail 07/23/18 07/23/18 04:30 04:30 WBC 8.4 RBC 2.77 L Hgb 7.9 L Hct 24.0 L MCV 86.6 MCH 28.5 MCHC 32.9 RDW 18.1 H RDW Differential 54.4 H Plt Count 125 L MPV 10.0 Immature Gran % (Auto) 2.300 H Neut % (Auto) 79.7 H Lymph % (Auto) 6.8 L [place] % (Auto) 10.9 H Eos % (Auto) 0.1 Baso % (Auto) 0.2 Absolute Neuts (auto) 6.7 Absolute Lymphs (auto) 0.57 L Total Counted Not Reportable Differential Comment Diff Path Review May foll Anisocytosis Ovalocytes PT INR Sodium 141 Potassium 3.5 Chloride 110 H Carbon Dioxide 22.0 Anion Gap 9 BUN 21 H Creatinine 1.09 Estim Creat Clear Calc 61.01 Est GFR (MDRD) Af Amer 86 Est GFR (MDRD) Non-Af 71 BUN/Creatinine Ratio 19.3 Glucose 139 H Lactic Acid Calcium 7.8 L Troponin I Urine Color Urine Clarity Urine pH Ur Specific [place] Urine Protein Urine Glucose (UA) Urine Ketones Urine Occult Blood Urine Nitrite Urine Bilirubin Urine Urobilinogen Ur Leukocyte Esterase Urine RBC Urine WBC Ur Squamous Epith Cells Amorphous Sediment Urine Bacteria Urine Mucus Blood Type Antibody Screen Crossmatch POC Glucose 07/23/18 07/23/18 07/22/18 11:24 06:38 23:49 POC Glucose 137 H 129 H 134 H Medical Necessity - Tobacco Use Smoking Status: Current every day smoker Tobacco Use: Cigarettes Assessment/Plan All Active Problems Generalized weakness (Acute) Epistaxis (Acute) 1. 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 Trend CBC. 2. Acute hypoxia secondary to right lower lobe community-acquired pneumonia- chest x-ray admission with right basilar consolidation. Send sputum for culture. Continue supplement oxygen to maintain O2 at or above 90%. Albuterol and DuoNeb aerosol. Continue IV azithromycin and IV Rocephin. Urine for strep and Legionella negative. Blood cultures pending. IS/PEP. 3. Acute Epistaxis, right nasal packing in place- placed in ER. Hold aspirin, plavix. Outpatient f/u with ENT. 4. CAD-continue metoprolol, statin. Hold aspirin, Plavix. Patient denies history of stents. Unsure why he is on dual antiplatelet therapy. [facility] 5. History of aortic valve repair 6. Type 2 diabetes mellitus-not on regimen. Accu-Cheks AC at bedtime with sliding scale insulin. Check hemoglobin A1c. 7. Depression-continue home sertraline/trazodone regimen. DVT prophylaxis-hold pharmacologic prophylaxis given epistaxis, SCDs. This patient was seen by RILEY Ramirez under the supervision of Dr. Ann. <Arvind Ann - Last Filed: 07/23/18 16:00> Subjective: No fever or chills. Patient has productive cough and audible wheezing. R espiratory rate 22-26/min. On 2 L of oxygen. Patient is edentulous and suspicion of aspiration. Patient has MDS and had epistaxis. Right nasal packing. H&H was 5.7/17.8 improved to 7.9/24. Platelet count 126,000. - Physical Exam General: Alert, Oriented x3, Cooperative HEENT: Atraumatic, PERRLA, EOMI, Normocephalic, - Oral: - - Dried blood in mouth Since patient pockets food in his mouth. Neck: Supple, No JVD, Negative Carotid Bruits Lungs: Diminished, Rhonchi, Short of Breath, Tachypneic, Wheezes, - Cardiovascular: Regular rate, Regular Rhythm, Normal S1, Normal S2, No murmurs Abdomen: Bowel Sounds Present, Soft, Non Tender, Non-Distended Extremities: No edema, Capillary Refill Less than 3 Seconds Skin: No rashes, No breakdown Musculoskeletal: No Tenderness to Palpation of Joints or Extremities, Arthritic Changes, Muscle Wasting Lymphatic: No Cervical, Supraclavicular, or Inguinal Adenopathy Neurological: Cranial nerves II-XII grossly intact, Deep Tendon Reflexes 2+/4 and Symmetrical, Neuro grossly intact Psych/Mental Status: Normal Affect, Appropriate Vital Signs Temp Pulse Resp BP Pulse Ox 98.1 F 106 H 22 H 136/75 H 99 07/23/18 14:01 07/23/18 15:00 07/23/18 14:01 07/23/18 14:01 07/23/18 14:01 Oxygen Flow Rate (L/min) 2 Oxygen Delivery Method Room Air Weight: 151 lb 14.376 oz Body Mass Index (BMI) 22.4 Intake and Output for Last 24 Hours 07/21/18 07/22/18 07/23/18 23:59 23:59 23:59 Intake Total 724 / 724 1842 / 1842 Output Total 1550 / 1550 Balance 724 / 724 292 / 292 Microbiology Past 72 Hours 07/23/18 00:50 Legionella Antigen - Final Urine, Clean Catch 07/23/18 00:50 Streptococcus pneumoniae Antigen (M - Final Urine, Clean Catch Laboratory Tests Past 24 Hrs 07/22/18 07/22/18 07/22/18 18:40 18:40 18:40 WBC 7.9 RBC 2.01 L Hgb 5.7 L* Hct 17.8 L MCV 88.6 MCH 28.4 MCHC 32.0 RDW 20.8 H RDW Differential 67.7 H Plt Count 126 L MPV 10.1 Immature Gran % (Auto) 0.800 Neut % (Auto) 82.0 H Lymph % (Auto) 8.2 L [place] % (Auto) 8.9 Eos % (Auto) 0.0 Baso % (Auto) 0.1 Absolute Neuts (auto) 6.5 Absolute Lymphs (auto) 0.65 L Total Counted Not Reportable Differential Comment SCANNED Diff Path Review Anisocytosis 2+ Ovalocytes 1+ PT 18.7 H INR 1.6 Sodium 138 Potassium 3.8 Chloride 108 H Carbon Dioxide 23.0 Anion Gap 7 BUN 21 H Creatinine 1.16 Estim Creat Clear Calc 59.26 Est GFR (MDRD) Af Amer 80 Est GFR (MDRD) Non-Af 66 BUN/Creatinine Ratio 18.1 Glucose 138 H Hemoglobin A1c Lactic Acid Calcium 8.4 L Troponin I < 0.015 Urine Color Urine Clarity Urine pH Ur Specific [place] Urine Protein Urine Glucose (UA) Urine Ketones Urine Occult Blood Urine Nitrite Urine Bilirubin Urine Urobilinogen Ur Leukocyte Esterase Urine RBC Urine WBC Ur Squamous Epith Cells Amorphous Sediment Urine Bacteria Urine Mucus Blood Type Antibody Screen Crossmatch 07/22/18 07/22/18 07/22/18 18:40 19:35 20:55 WBC RBC Hgb Hct MCV MCH MCHC RDW RDW Differential Plt Count MPV Immature Gran % (Auto) Neut % (Auto) Lymph % (Auto) [place] % (Auto) Eos % (Auto) Baso % (Auto) Absolute Neuts (auto) Absolute Lymphs (auto) Total Counted Differential Comment Diff Path Review Anisocytosis Ovalocytes PT INR Sodium Potassium Chloride Carbon Dioxide Anion Gap BUN Creatinine Estim Creat Clear Calc Est GFR (MDRD) Af Amer Est GFR (MDRD) Non-Af BUN/Creatinine Ratio Glucose Hemoglobin A1c Lactic Acid 1.8 Calcium Troponin I Urine Color Yellow Urine Clarity Clear Urine pH 5.0 Ur Specific [place] 1.015 Urine Protein 100 H Urine Glucose (UA) Normal Urine Ketones 15 H Urine Occult Blood 25 H Urine Nitrite Negative Urine Bilirubin 1 H Urine Urobilinogen 4 H Ur Leukocyte Esterase 25 H Urine RBC 0 SEEN Urine WBC 0-5 SEEN Ur Squamous Epith Cells 0 SEEN Amorphous Sediment 1+ Urine Bacteria 0 SEEN Urine Mucus 0 SEEN Blood Type B POSITIVE Antibody Screen NEGATIVE Crossmatch See Detail 07/23/18 07/23/18 07/23/18 04:30 04:30 04:30 WBC 8.4 RBC 2.77 L Hgb 7.9 L Hct 24.0 L MCV 86.6 MCH 28.5 MCHC 32.9 RDW 18.1 H RDW Differential 54.4 H Plt Count 125 L MPV 10.0 Immature Gran % (Auto) 2.300 H Neut % (Auto) 79.7 H Lymph % (Auto) 6.8 L [place] % (Auto) 10.9 H Eos % (Auto) 0.1 Baso % (Auto) 0.2 Absolute Neuts (auto) 6.7 Absolute Lymphs (auto) 0.57 L Total Counted Not Reportable Differential Comment Diff Path Review May foll Anisocytosis Ovalocytes PT INR Sodium 141 Potassium 3.5 Chloride 110 H Carbon Dioxide 22.0 Anion Gap 9 BUN 21 H Creatinine 1.09 Estim Creat Clear Calc 61.01 Est GFR (MDRD) Af Amer 86 Est GFR (MDRD) Non-Af 71 BUN/Creatinine Ratio 19.3 Glucose 139 H Hemoglobin A1c < 3.5 L Lactic Acid Calcium 7.8 L Troponin I Urine Color Urine Clarity Urine pH Ur Specific [place] Urine Protein Urine Glucose (UA) Urine Ketones Urine Occult Blood Urine Nitrite Urine Bilirubin Urine Urobilinogen Ur Leukocyte Esterase Urine RBC Urine WBC Ur Squamous Epith Cells Amorphous Sediment Urine Bacteria Urine Mucus Blood Type Antibody Screen Crossmatch POC Glucose 0307/23/18 07/22/18 11:24 06:38 23:49 POC Glucose 137 H 129 H 134 H Assessment/Plan This patient was seen in conjunction with Elizabeth BARROSO. I have independently interviewed and examined the patient and reviewed pertinent history, examination findings, laboratory and plan of management. I have reviewed the note and agree with the documented findings with the few additional points. In brief, patient is admitted for acute on chronic anemia with history of MDS with recent epistaxis. Had 2 units of PRBC transfusion. H&H was 5.7/17.8 improved to 7.9/24. Platelet count 126,000. Patient is still has tachypnea, hypoxia with mild tachycardia but no fever. Right lower lobe consolidation on chest x-ray. Was started on ceftriaxone and Zithromax but with risk of aspiration antibiotic changed to Zosyn. Speech therapy was consulted. Recommend dysphagia diet mechanical soft diet unless changed by speech therapist. I have discussed my assessment with Elizabeth BARROSO and orders have been reviewed. Code Visit Inpatient E&M: 08163 Subs Hosp L2
--- NOTE | 2018-07-23 12:42 | CM.UR ---
RN CM Assessment Met face to face with patient for initial transition planning/care coordination assessment. Introduced myself and my role. Verb understanding and agreement for assessment. Presentation: PCP: Guerda Powers CERTIFIED REGISTERED [facility]OCKSM[facility] at [facility] Specialists: States he has Heme and cardio at [facility]: [facility] and [employer] part A only. Prescription Benefit: [facility] only. LNOK: No family local. friend Emre Kirby helps as needed Home: Apartment. 4 steps with railing. ADLs: Lives alone. States he does most things for himself but is currently [facility] into his home. DME: Grab bars, shower chair, handheld shower head and walker. SNF/HHC: Denies every having either. 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 states his daughter in [place] has been bugging him to move their to be with her since no family here any more. DC PLAN: TBD. Faxed records to [facility] at this time. Also alerted healthcare social worker at [facility] that he may need SNF. Guerda Gavin RN, CCM.
[2018-07-23 12:46] LABS: Hemoglobin A1c < 3.5 % (4.2-6.3)
[2018-07-23] MEDS: Albuterol 2.5 MG/3 ML VIAL.NEB. INHALATION (16:15)
[2018-07-23 16:20] LABS: Bedside Glucose 111 mg/dL (70-110)
[2018-07-23 17:37] LABS: Hematocrit 24.6 % (40-54); Hemoglobin 8.1 g/dl (13.0-16.5)
--- NOTE | 2018-07-23 21:35 | NURSING ---
Pt. pulled out nasal packing in R nare. No bleeding noted. Will continue to monitor.
[2018-07-23] MEDS: traZODone 50 MG Tablet 25 MG PO (22:58)
[2018-07-23] MEDS: Atorvastatin Calcium 20 MG Tablet PO (22:58)
[2018-07-23] MEDS: Gabapentin 300 MG Capsule PO (22:59)
[2018-07-23 23:26] LABS: Bedside Glucose 120 mg/dL (70-110)
[2018-07-24] VITALS (24 sets, daily range): BP systolic 117–146; BP diastolic 54–68; PULSE 77–99; RESP 14–26; TEMP 36.7–37.1; O2SAT 94–98
[2018-07-24 06:30] LABS: Hematocrit 20.3 % (40-54); Hemoglobin 6.6 g/dl (13.0-16.5); Mean Corp Hgb Conc 32.5 g/gl (32-36); Mean Corpuscular Hgb 28.2 pg (27.0-32.0); Mean Corpuscular Volume 86.8 fL (80-94); Mean Platelet Vol. 10.1 fl (6.2-12.0); Platelet Count 114 K/mm3 (150-450); RBC Distribution Width CV 18.9 % (11.6-14.6); RBC Distribution Width SD 58.8 fl (35.1-43.9); Red Blood Count 2.34 M/mm3 (4.6-6.2); White Blood Count 4.9 K/mm3 (4.4-11.0)
[2018-07-24 06:33] LABS: Scan Indicated on CBC? Y/N NO
[2018-07-24] MEDS: Ipratropium/Albuterol Sulfate 3 ML AMPUL.NEB INHALATION ×2 (06:59→19:50)
[2018-07-24 07:05] LABS: Bedside Glucose 94 mg/dL (70-110)
[2018-07-24] MEDS: Menthol/Lanolin/Calamine/Znox 113 GM Tube 1 APPLIC TOPICAL ×2 (09:24→21:15)
[2018-07-24] MEDS: Metoprolol Tartrate 50 MG Tablet PO ×2 (09:25→21:14)
[2018-07-24] MEDS: Sertraline 100 MG Tablet 150 MG PO (09:25)
[2018-07-24 11:16] LABS: Bedside Glucose 133 mg/dL (70-110)
[2018-07-24] MEDS: Furosemide 40 MG/4 ML Vial IV (13:29)
--- NOTE | 2018-07-24 15:34 | PN_ITS ---
<Elizabeth Lee - Last Filed: 07/24/18 15:34> Patient Problems: Active and Suspected Problems Generalized weakness (Acute) Epistaxis (Acute) Subjective: Patient seen and examined. Sitting up in chair, reports significant improvement in shortness of breath. Denies fever, chills. His nasal packing was removed overnight and he has not had further epistaxis. - Physical Exam General: Alert, Oriented x3, Cooperative HEENT: Atraumatic, PERRLA, EOMI, Normocephalic Oral: Dry Mucosa Neck: Supple, No JVD, Negative Carotid Bruits Lungs: Diminished, Rhonchi - Improved Cardiovascular: Regular rate, Regular Rhythm, Normal S1, Normal S2, No murmurs Abdomen: Bowel Sounds Present, Soft, Non Tender, Non-Distended Extremities: No clubbing, No cyanosis, No edema, Capillary Refill Less than 3 Seconds Skin: No rashes, No breakdown Musculoskeletal: No Tenderness to Palpation of Joints or Extremities Neurological: Cranial nerves II-XII grossly intact, Neuro grossly intact Psych/Mental Status: Normal Affect, Appropriate Vital Signs Temp Pulse Resp BP Pulse Ox 98.0 F 88 14 120/60 97 07/24/18 15:22 07/24/18 15:22 07/24/18 15:22 07/24/18 15:22 07/24/18 15:22 Oxygen Flow Rate (L/min) 2 Oxygen Delivery Method Nasal Cannula Weight: 151 lb 14.376 oz Body Mass Index (BMI) 22.4 Intake and Output for Last 24 Hours 07/22/18 07/23/18 07/24/18 23:59 23:59 23:59 Intake Total 724 / 724 2269 / 2269 966 / 966 Output Total 2860 / 2860 450 / 450 Balance 724 / 724 -591 / -591 516 / 516 Microbiology Past 72 Hours 07/23/18 00:50 Legionella Antigen - Final Urine, Clean Catch 07/23/18 00:50 Streptococcus pneumoniae Antigen (M - Final Urine, Clean Catch Laboratory Tests Past 24 Hrs 07/22/18 07/23/18 07/24/18 19:35 17:20 06:14 WBC 4.9 RBC 2.34 L Hgb 8.1 L 6.6 L Hct 24.6 L 20.3 L MCV 86.8 MCH 28.2 MCHC 32.5 RDW 18.9 H RDW Differential 58.8 H Plt Count 114 L MPV 10.1 Blood Type B POSITIVE Antibody Screen NEGATIVE Crossmatch See Detail POC Glucose 07/24/18 07/24/18 07/23/18 11:12 06:55 22:55 POC Glucose 133 H 94 120 H 07/23/18 16:03 POC Glucose 111 H Medical Necessity - Tobacco Use Smoking Status: Current every day smoker Tobacco Use: Cigarettes Assessment/Plan All Active Problems Generalized weakness (Acute) Epistaxis (Acute) 1. 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 Trend CBC. 2. Acute hypoxia secondary to right lower lobe community-acquired pneumonia- chest x-ray admission with right basilar consolidation. Sputum culture pending. Continue supplement oxygen to maintain O2 at or above 90%. Albuterol and DuoNeb aerosol. Continue IV Zosyn. Speech therapy consulted given suspicion for aspiration. Urine for strep and Legionella negative. Blood cultures pending. IS/PEP. 3. Acute Epistaxis, right nasal packing removed by patient- Hold aspirin, plavix. Outpatient f/u with ENT. No further bleeding. 4. CAD-continue metoprolol, statin. Hold aspirin, Plavix. Patient denies history of stents. Unsure why he is on dual antiplatelet therapy. Will request records from [place]. 5. History of aortic valve repair 6. Type 2 diabetes mellitus-not on regimen. Hemoglobin A1c less than 3.5%? Accu-Cheks discontinued. 7. Depression-continue home sertraline/trazodone regimen. DVT prophylaxis-hold pharmacologic prophylaxis given epistaxis, SCDs. Discharge planning: Patient requiring significant assistance with physical therapy. Anticipate need for SNF at discharge. Patient wishes to return to [facility] where he has spent time for rehab in the past. This patient was seen by RILEY Ramirez under the supervision of Dr. Ann. <Arvind Ann - Last Filed: 07/24/18 16:33> Subjective: Patient feels better than yesterday. Shortness of breath is much improved. Patient self removed his nasal packing last night. Patient states he does not have problem in swallowing his problem but hard on chewing because he did not have dentures. - Physical Exam General: Alert, Oriented x3, Cooperative HEENT: Atraumatic, PERRLA, EOMI, Normocephalic Neck: Supple, No JVD, Negative Carotid Bruits Lungs: Diminished, Rhonchi Cardiovascular: Regular rate, Regular Rhythm, Normal S2, No murmurs Abdomen: Bowel Sounds Present, Soft, Non Tender Extremities: No edema, Capillary Refill Less than 3 Seconds Skin: No rashes, No breakdown Musculoskeletal: No Tenderness to Palpation of Joints or Extremities, Arthritic Changes, Muscle Wasting Neurological: Cranial nerves II-XII grossly intact Psych/Mental Status: Normal Affect, Appropriate Vital Signs Temp Pulse Resp BP Pulse Ox 98.4 F 89 18 121/60 H 96 07/24/18 15:37 07/24/18 15:37 07/24/18 15:37 07/24/18 15:37 07/24/18 15:37 Oxygen Flow Rate (L/min) 2 Oxygen Delivery Method Nasal Cannula Weight: 151 lb 14.376 oz Body Mass Index (BMI) 22.4 Intake and Output for Last 24 Hours 07/22/18 07/23/18 07/24/18 23:59 23:59 23:59 Intake Total 724 / 724 2269 / 2269 966 / 966 Output Total 2860 / 2860 450 / 450 Balance 724 / 724 -591 / -591 516 / 516 Microbiology Past 72 Hours 07/23/18 23:20 Gram Stain - Final Sputum, Expectorated/Coughed 07/23/18 00:50 Legionella Antigen - Final Urine, Clean Catch 07/23/18 00:50 Streptococcus pneumoniae Antigen (M - Final Urine, Clean Catch Laboratory Tests Past 24 Hrs 07/22/18 07/23/18 07/24/18 19:35 17:20 06:14 WBC 4.9 RBC 2.34 L Hgb 8.1 L 6.6 L Hct 24.6 L 20.3 L MCV 86.8 MCH 28.2 MCHC 32.5 RDW 18.9 H RDW Differential 58.8 H Plt Count 114 L MPV 10.1 Blood Type B POSITIVE Antibody Screen NEGATIVE Crossmatch See Detail POC Glucose 07/24/18 07/24/18 07/23/18 11:12 06:55 22:55 POC Glucose 133 H 94 120 H Assessment/Plan This patient was seen in conjunction with Elizabeth BARROSO. I have independently interviewed and examined the patient and reviewed pertinent history, examination findings, laboratory and plan of management. I have reviewed the note and agree with the documented findings with the few additional points. In brief, patient is admitted for acute on chronic anemia with history of MDS with recent epistaxis. Had 2 units of PRBC transfusion. H&H was 5.7/17.8 improved to 7.9/24; improved after PRBC transfusion but again dropped to 6.6/20.3 on 07/24. On 1 L of PRBC transfusion. Platelet count 114,000. Right lower lobe consolidation on chest x-ray. Was started on ceftriaxone and Zithromax but with risk of aspiration antibiotic changed to Zosyn. Speech therapy was consulted. Recommend dysphagia diet; pur?ed texture diet with nectar thick liquid. I have discussed my assessment with HIGH RAW SUGAR BOILERElizabeth and orders have been reviewed. Microbiology Past 72 Hours 07/23/18 23:20 Sputum, Expectorated/Coughed Gram Stain - Final 07/23/18 00:50 Urine, Clean Catch Legionella Antigen - Final 07/23/18 00:50 Urine, Clean Catch Streptococcus pneumoniae Antigen (M - Final Laboratory Results 07/22/18 19:35: Blood Type B POSITIVE, Antibody Screen NEGATIVE, Crossmatch See Detail 07/23/18 17:20: Hgb 8.1 L, Hct 24.6 L 07/23/18 22:55: POC Glucose 120 H 07/24/18 06:14: WBC 4.9, RBC 2.34 L, Hgb 6.6 L, Hct 20.3 L, MCV 86.8, MCH 28.2, MCHC 32.5, RDW 18.9 H, RDW Differential 58.8 H, Plt Count 114 L, MPV 10.1 07/24/18 06:55: POC Glucose 94 07/24/18 11:12: POC Glucose 133 H Code Visit Inpatient E&M: 26235 Subs Hosp L3
--- NOTE | 2018-07-24 18:05 | ONC.CONS.INP ---
Consult Referring Physician: Dr. Netta Ann/Guerda Lee. Consult Results: MDS Subjective Date of Service:: 07/24/18 Chief Complaint: Asked to see Pt with MDS History of Present Illness: 68y.o.man with MDS-anemia being treated with Procrit and blood transfusion monthly at the [facility] in [place], was admitted with nose bleed and found to have Right lower lobe pneumonia. He has been give blood transfusion since admission, now on his 4th unit. He reports that he has had valvular surgery and takes blood thinners for it. He also gets nose bleeds regularly. Since admission, nose bleed has stopped. Past Medical History: Chronic Problems Epistaxis (Chronic) MDS (myelodysplastic syndrome) (Chronic) Past Medical/Surgical History: Past Medical History - Most Recent Inpatient Visit Past Medical History Start: 07/22/18 23:06 Text: Status: Complete Freq: ONCE Protocol: Document 07/22/18 23:06 [facility] (Rec: 07/22/18 23:26 [facility] [id number]) BMI Required to complete PMH What is Patient's BMI 23.2 Past Medical History Unable History Recalled No Query Text:Pt Unable/Family Not Present Neurologic Medical History Hx Stroke/TIA No Hx Dementia/Alzheimer's No Hx Parkinson's Disease No Hx Seizures No Hx Multiple Sclerosis No Hx Migraines No Cardiac Medical History VTE Present on Admission No Hx of Deep Vein Thrombosis/VTE/PE Yes Hx Hypertension Yes Hx Chest Pain/Angina Yes Hx Heart Attack Yes Hx Cardiac Surgery/Stents/Etc. Yes: triple bypass Hx Heart Failure Yes Hx Pacemaker/AICD No Hx Irregular Heartbeat and/or Afib No Hx Anticoagulant Therapy Yes Query Text:(Coumadin, Aspirin, Plavix, Xarelto, etc.) Hx Pain in Legs when Walking/Leg Cramps No Respiratory Medical History Hx COPD No Hx Emphysema No Hx Smoking Yes Smoking Status Current every day smoker Tobacco Use Cigarettes Years Smoking 50 Packs Smoked per Day 0.25 Hx Smoking Cessation Counseling No Hx Smoking Exposure No Hx Tobacco Use in last 12 months Yes Sent to PSN Yes Hx of Pipe Smoking No Hx of Cigar Smoking No Hx Sleep Apnea No Do you snore loudly (louder than talking No or can be heard through closed doors)? Do you often feel tired/ fatigued/ Yes sleepy during daytime? Has anyone observed you stop breathing No during sleep? STOP Results Positive GI Medical History Hx Ulcer No Hx Hepatitis No Hx Cirrhosis No Hx GI Bleed No Hx Unplanned Weight Loss No Genitourinary Medical History Indwelling Catheter in Place on Arrival/ No Admission Hx Renal Disease No Hx Dialysis No Musculoskeletal History Hx Arthritis No Hx Rheumatoid Arthritis No Endocrine Medical History Hx Diabetes Yes Hx Thyroid Disease No Hematologic Medical History Hx of Blood Transfusion Yes Hx of Transfusion in last 3 Months Yes Date of Last Transfusion (if within last 3 weeks ago 3 months) Ever experience any problems with No transfusion(s)? Hx of Preganancy in last 3 Months N/A Nurse Filling Out Transfusion & SHOWMAN Questions: Date: 07/22/18 Time: 23:23 Psycho/Social Medical History Hx Depression Yes Hx Anxiety Yes Hx Behavior Disorder Yes: ptsd Hx Alcohol Use No Hx Substance Use No Other Medical History Hx Blood Disorders Yes Hx Anemia Yes Hx Cancer Yes Hx Drug Resistant Organism No Wound/Pressure Injury Present on Arrival Yes /Admission Query Text:If yes, chart assessment in Shift/Clinical Findings Central Line/PICC/VAD Present on Arrival No /Admission Antibiotics within last 7 days? No Methicillin Resistant Staphylococcus aureus Screening Active MRSA No Risk for Readmission Number of Risk Factors 7 At Risk for Readmission Patient is At Risk For Readmission Patient is eligible for Call Back Y Maternal Family History: No pertinent history Paternal Family History: No pertinent history - Social History Lives: Alone Smoking Status: Current every day smoker Tobacco Use: Cigarettes Alcohol: None Drugs: None Allergies/Adverse Reactions: Allergy/AdvReac Type Severity Reaction Status Date / Time No Known Allergies Allergy Verified 07/22/18 18:24 Review of Systems Constitutional:: Reports: Weakness, Fatigue. Denies: Fever, Sweats Cardiovascular:: Denies: Chest pain, Palpitations, Dyspnea on exertion, Orthopnea, PND, Shortness of breath Respiratory: Reports: - - nose bleeds on and off. Gastrointestinal:: Denies: Abdominal pain, Nausea, Vomiting, Diarrhea, Constipation, Hematochezia Genitourinary: Denies: Dysuria, Hematuria, 15, Flank pain Skin: Denies: Rash, Skin Changes, Wounds Neurological:: Denies: Headache, Dizziness, Visual changes, Tinnitus, Hearing loss Psychiatric: Denies: Anxiety, Depression, Homicidal Ideations, Suicidal Ideations Vital Signs Height 5 ft 8.9 in Weight: 68.9 kg Weight in Pounds 151.9 lbs Pulse Ox 97 Temperature 98.0 F Pulse Rate 84 Respiratory Rate 16 Blood Pressure 123/59 Blood Pressure Position Semi-Fowlers - Physical Exam General: Alert, Oriented x3, No apparent distress HEENT: Atraumatic, - - Uses hearing aids. on O2 by NC, Neck:: Supple, Trachea midline. Negative for: JVD, bilateral Cardiac:: Regular rate, Regular rhythm, Normal S1, Normal S2. Negative for: Murmur Lungs: Clear to auscultation, Excusion symmetrical. Negative for: Rhonchi, Wheezes Abdomen:: Bowel sounds x 4, Soft, Non-tender, Non-distended. Negative for: Hepatosplenomegaly Neurological: Cranial nerves II-XII grossly intact Lymphatics:: Negative for: Cervical lymphadenopathy, Supraclavicular lymphadenopathy, Axillary lymphadenopathy Laboratory Data: Microbiology 07/23/18 23:20 Gram Stain - Final Sputum, Expectorated/Coughed 07/23/18 00:50 Legionella Antigen - Final Urine, Clean Catch 07/23/18 00:50 Streptococcus pneumoniae Antigen (M - Final Urine, Clean Catch Laboratory Tests 07/24/18 07/24/18 07/24/18 Range/Units 11:12 06:55 06:14 WBC 4.9 (4.4-11.0) K/mm3 RBC 2.34 L (4.6-6.2) M/mm3 Hgb 6.6 L (13.0-16.5) g/dl Hct 20.3 L (40-54) % MCV 86.8 (80-94) fL MCH 28.2 (27.0-32.0) pg MCHC 32.5 (32-36) g/gl RDW 18.9 H (11.6-14.6) % RDW Differential 58.8 H (35.1-43.9) fl Plt Count 114 L (150-450) K/mm3 MPV 10.1 (6.2-12.0) fl POC Glucose 133 H 94 (70-110) mg/dL Blood Type Antibody Screen Crossmatch 07/23/18 07/22/18 Range/Units 22:55 19:35 WBC (4.4-11.0) K/mm3 RBC (4.6-6.2) M/mm3 Hgb (13.0-16.5) g/dl Hct (40-54) % MCV (80-94) fL MCH (27.0-32.0) pg MCHC (32-36) g/gl RDW (11.6-14.6) % RDW Differential (35.1-43.9) fl Plt Count (150-450) K/mm3 MPV (6.2-12.0) fl POC Glucose 120 H (70-110) mg/dL Blood Type B POSITIVE Antibody Screen NEGATIVE Crossmatch See Detail Diagnostic Data: Diagnostic Data Chest X-Ray 07/22/18 19:06 IMPRESSION: Right basilar consolidation. 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 Now admitted with anemia requiring blood transfusion. Records from [facility] not available for review. Epistaxis has stopped. Suggestions: 1. Continue supportive PRBC transfusion to keep HGB between 7-8. 2. Obtain records from [facility]. 3. Hold Anti-platelets for now. 4. Check stool for Occult blood and consider GI evaluation if needed, Epistaxis may make FOBT positive. 5. If stable and discharged, should follow up with [facility] [employer] in [facility]. Thanks. Medications: Prescriptions This Visit Medication Instructions Recorded Acetaminophen 325 mg PO Q6H PRN PRN 07/22/18 Aspirin [Adult Aspirin Regimen] 81 mg PO DAILY 07/22/18 Atorvastatin Calcium 20 mg PO QHS 07/22/18 Cholecalciferol (Vitamin D3) 2,000 unit PO DAILY 07/22/18 [Vitamin D3] Clopidogrel Bisulfate [Clopidogrel] 75 mg PO DAILY 07/22/18 Gabapentin [Neurontin] 300 mg PO QHS 07/22/18 Metoprolol Tartrate [Lopressor 50 mg PO BID 07/22/18 (Beta Maria Esther)] Sertraline HCl 150 mg PO DAILY 07/22/18 traZODone [Desyrel] 25 mg PO QHS 07/22/18 Primary Care Provider: No Primary Care Phys Referring Provider: Gulshan Cabrera DO - Problem List (1) MDS (myelodysplastic syndrome) Status: Chronic (2) Epistaxis Status: Chronic Code Visit Office Visits / Consults: [id number] IP Consult L5
--- NOTE | 2018-07-24 18:09 | CON.PCM_ITS ---
Consult Referring Physician: Dr. Netta Ann/Guerda Lee. Consult Results: MDS Subjective Date of Service:: 07/24/18 Chief Complaint: Asked to see Pt with MDS History of Present Illness: 68y.o.man with MDS-anemia being treated with Procrit and blood transfusion monthly at the [facility] in [place], was admitted with nose bleed and found to have Right lower lobe pneumonia. He has been give blood transfusion since admission, now on his 4th unit. He reports that he has had valvular surgery and takes blood thinners for it. He also gets nose bleeds regularly. Since admission, nose bleed has stopped. Past Medical History: Chronic Problems Epistaxis (Chronic) MDS (myelodysplastic syndrome) (Chronic) Past Medical/Surgical History: Past Medical History - Most Recent Inpatient Visit Past Medical History Start: 07/22/18 23:06 Text: Status: Complete Freq: ONCE Protocol: Document 07/22/18 23:06 [facility] (Rec: 07/22/18 23:26 [facility] [id number]) BMI Required to complete PMH What is Patient's BMI 23.2 Past Medical History Unable History Recalled No Query Text:Pt Unable/Family Not Present Neurologic Medical History Hx Stroke/TIA No Hx Dementia/Alzheimer's No Hx Parkinson's Disease No Hx Seizures No Hx Multiple Sclerosis No Hx Migraines No Cardiac Medical History VTE Present on Admission No Hx of Deep Vein Thrombosis/VTE/PE Yes Hx Hypertension Yes Hx Chest Pain/Angina Yes Hx Heart Attack Yes Hx Cardiac Surgery/Stents/Etc. Yes: triple bypass Hx Heart Failure Yes Hx Pacemaker/AICD No Hx Irregular Heartbeat and/or Afib No Hx Anticoagulant Therapy Yes Query Text:(Coumadin, Aspirin, Plavix, Xarelto, etc.) Hx Pain in Legs when Walking/Leg Cramps No Respiratory Medical History Hx COPD No Hx Emphysema No Hx Smoking Yes Smoking Status Current every day smoker Tobacco Use Cigarettes Years Smoking 50 Packs Smoked per Day 0.25 Hx Smoking Cessation Counseling No Hx Smoking Exposure No Hx Tobacco Use in last 12 months Yes Sent to PSN Yes Hx of Pipe Smoking No Hx of Cigar Smoking No Hx Sleep Apnea No Do you snore loudly (louder than talking No or can be heard through closed doors)? Do you often feel tired/ fatigued/ Yes sleepy during daytime? Has anyone observed you stop breathing No during sleep? STOP Results Positive GI Medical History Hx Ulcer No Hx Hepatitis No Hx Cirrhosis No Hx GI Bleed No Hx Unplanned Weight Loss No Genitourinary Medical History Indwelling Catheter in Place on Arrival/ No Admission Hx Renal Disease No Hx Dialysis No Musculoskeletal History Hx Arthritis No Hx Rheumatoid Arthritis No Endocrine Medical History Hx Diabetes Yes Hx Thyroid Disease No Hematologic Medical History Hx of Blood Transfusion Yes Hx of Transfusion in last 3 Months Yes Date of Last Transfusion (if within last 3 weeks ago 3 months) Ever experience any problems with No transfusion(s)? Hx of Preganancy in last 3 Months N/A Nurse Filling Out Transfusion & SHOWMAN Questions: Date: 07/22/18 Time: 23:23 Psycho/Social Medical History Hx Depression Yes Hx Anxiety Yes Hx Behavior Disorder Yes: ptsd Hx Alcohol Use No Hx Substance Use No Other Medical History Hx Blood Disorders Yes Hx Anemia Yes Hx Cancer Yes Hx Drug Resistant Organism No Wound/Pressure Injury Present on Arrival Yes /Admission Query Text:If yes, chart assessment in Shift/Clinical Findings Central Line/PICC/VAD Present on Arrival No /Admission Antibiotics within last 7 days? No Methicillin Resistant Staphylococcus aureus Screening Active MRSA No Risk for Readmission Number of Risk Factors 7 At Risk for Readmission Patient is At Risk For Readmission Patient is eligible for Call Back Y Maternal Family History: No pertinent history Paternal Family History: No pertinent history - Social History Lives: Alone Smoking Status: Current every day smoker Tobacco Use: Cigarettes Alcohol: None Drugs: None Allergies/Adverse Reactions: Allergy/AdvReac Type Severity Reaction Status Date / Time No Known Allergies Allergy Verified 07/22/18 18:24 Review of Systems Constitutional:: Reports: Weakness, Fatigue. Denies: Fever, Sweats Cardiovascular:: Denies: Chest pain, Palpitations, Dyspnea on exertion, Orthopnea, PND, Shortness of breath Respiratory: Reports: - - nose bleeds on and off. Gastrointestinal:: Denies: Abdominal pain, Nausea, Vomiting, Diarrhea, Constipation, Hematochezia Genitourinary: Denies: Dysuria, Hematuria, 15, Flank pain Skin: Denies: Rash, Skin Changes, Wounds Neurological:: Denies: Headache, Dizziness, Visual changes, Tinnitus, Hearing loss Psychiatric: Denies: Anxiety, Depression, Homicidal Ideations, Suicidal Ideations Vital Signs Height 5 ft 8.9 in Weight: 68.9 kg Weight in Pounds 151.9 lbs Pulse Ox 97 Temperature 98.0 F Pulse Rate 84 Respiratory Rate 16 Blood Pressure 123/59 Blood Pressure Position Semi-Fowlers - Physical Exam General: Alert, Oriented x3, No apparent distress HEENT: Atraumatic, - - Uses hearing aids. on O2 by NC, Neck:: Supple, Trachea midline. Negative for: JVD, bilateral Cardiac:: Regular rate, Regular rhythm, Normal S1, Normal S2. Negative for: Murmur Lungs: Clear to auscultation, Excusion symmetrical. Negative for: Rhonchi, Wheezes Abdomen:: Bowel sounds x 4, Soft, Non-tender, Non-distended. Negative for: Hepatosplenomegaly Neurological: Cranial nerves II-XII grossly intact Lymphatics:: Negative for: Cervical lymphadenopathy, Supraclavicular lymphadenopathy, Axillary lymphadenopathy Laboratory Data: Microbiology 07/23/18 23:20 Gram Stain - Final Sputum, Expectorated/Coughed 07/23/18 00:50 Legionella Antigen - Final Urine, Clean Catch 07/23/18 00:50 Streptococcus pneumoniae Antigen (M - Final Urine, Clean Catch Laboratory Tests 07/24/18 07/24/18 07/24/18 Range/Units 11:12 06:55 06:14 WBC 4.9 (4.4-11.0) K/mm3 RBC 2.34 L (4.6-6.2) M/mm3 Hgb 6.6 L (13.0-16.5) g/dl Hct 20.3 L (40-54) % MCV 86.8 (80-94) fL MCH 28.2 (27.0-32.0) pg MCHC 32.5 (32-36) g/gl RDW 18.9 H (11.6-14.6) % RDW Differential 58.8 H (35.1-43.9) fl Plt Count 114 L (150-450) K/mm3 MPV 10.1 (6.2-12.0) fl POC Glucose 133 H 94 (70-110) mg/dL Blood Type Antibody Screen Crossmatch 07/23/18 07/22/18 Range/Units 22:55 19:35 WBC (4.4-11.0) K/mm3 RBC (4.6-6.2) M/mm3 Hgb (13.0-16.5) g/dl Hct (40-54) % MCV (80-94) fL MCH (27.0-32.0) pg MCHC (32-36) g/gl RDW (11.6-14.6) % RDW Differential (35.1-43.9) fl Plt Count (150-450) K/mm3 MPV (6.2-12.0) fl POC Glucose 120 H (70-110) mg/dL Blood Type B POSITIVE Antibody Screen NEGATIVE Crossmatch See Detail Diagnostic Data: Diagnostic Data Chest X-Ray 07/22/18 19:06 IMPRESSION: Right basilar consolidation. 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 Now admitted with anemia requiring blood transfusion. Records from [facility] not available for review. Epistaxis has stopped. Suggestions: 1. Continue supportive PRBC transfusion to keep HGB between 7-8. 2. Obtain records from [facility]. 3. Hold Anti-platelets for now. 4. Check stool for Occult blood and consider GI evaluation if needed, Epistaxis may make FOBT positive. 5. If stable and discharged, should follow up with [facility] in [facility]. Thanks. Medications: Prescriptions This Visit Medication Instructions Recorded Acetaminophen 325 mg PO Q6H PRN PRN 07/22/18 Aspirin [Adult Aspirin Regimen] 81 mg PO DAILY 07/22/18 Atorvastatin Calcium 20 mg PO QHS 07/22/18 Cholecalciferol (Vitamin D3) 2,000 unit PO DAILY 07/22/18 [Vitamin D3] Clopidogrel Bisulfate [Clopidogrel] 75 mg PO DAILY 07/22/18 Gabapentin [Neurontin] 300 mg PO QHS 07/22/18 Metoprolol Tartrate [Lopressor 50 mg PO BID 07/22/18 (Beta Maria Esther)] Sertraline HCl 150 mg PO DAILY 07/22/18 traZODone [Desyrel] 25 mg PO QHS 07/22/18 Primary Care Provider: No Primary Care Phys Referring Provider: Gulshan Cabrera DO - Problem List (1) MDS (myelodysplastic syndrome) Status: Chronic (2) Epistaxis Status: Chronic Code Visit Office Visits / Consults: [id number] IP Consult L5
[2018-07-24] MEDS: Gabapentin 300 MG Capsule PO (21:14)
[2018-07-24] MEDS: 0.9% NaCl Peripheral Flush Adult/Peds IV (21:14)
[2018-07-24] MEDS: traZODone 50 MG Tablet 25 MG PO (21:14)
[2018-07-24] MEDS: Atorvastatin Calcium 20 MG Tablet PO (21:15)
[2018-07-24] MEDS: BMX LIQUID 180 ML 10 ML PO (21:15)
[2018-07-25] VITALS (15 sets, daily range): BP systolic 118–138; BP diastolic 58–68; PULSE 73–91; RESP 16–24; TEMP 36.4–37.1; O2SAT 88–100
[2018-07-25 05:55] LABS: Hematocrit 25.7 % (40-54); Hemoglobin 8.4 g/dl (13.0-16.5); Mean Corp Hgb Conc 32.7 g/gl (32-36); Mean Corpuscular Hgb 28.4 pg (27.0-32.0); Mean Corpuscular Volume 86.8 fL (80-94); Platelet Count 119 K/mm3 (150-450); RBC Distribution Width CV 17.5 % (11.6-14.6); RBC Distribution Width SD 54.2 fl (35.1-43.9); Red Blood Count 2.96 M/mm3 (4.6-6.2); White Blood Count 4.3 K/mm3 (4.4-11.0)
[2018-07-25 05:56] LABS: Anion Gap 7 (5-15); BUN 17 mg/dL (7-18); BUN/Creat Ratio 14.4 RATIO (10-20); Calcium,Total 7.8 mg/dL (8.5-10.1); Chloride 111 mmol/L (98-107); Creatinine, Serum 1.18 mg/dL (0.70-1.30); EST Glomerular Filtration Rate 65 mL/min (>60); Est Glom Filt Rate - Afr Amer 78 mL/min (>60); Estimated Creatinine Clearance 56.36 ml/min; Glucose 116 mg/dL (74-106); Potassium 2.9 mmol/L (3.5-5.1); Sodium Level 145 mmol/L (136-145)
[2018-07-25 06:08] LABS: Scan Indicated on CBC? Y/N NO
[2018-07-25 08:07] LABS: Magnesium 2.2 mg/dL (1.6-2.6)
[2018-07-25] MEDS: Menthol/Lanolin/Calamine/Znox 113 GM Tube 1 APPLIC TOPICAL (08:34)
[2018-07-25] MEDS: Sertraline 100 MG Tablet 150 MG PO (08:37)
[2018-07-25] MEDS: Metoprolol Tartrate 50 MG Tablet PO ×2 (08:38→21:33)
[2018-07-25] MEDS: BMX LIQUID 180 ML 10 ML PO ×2 (08:39→21:33)
[2018-07-25] MEDS: Potassium Chloride 10mEq/100mL 10 MEQ/100 ML IV.SOLN. 100 MEQ IV BOLUS ×4 (09:57→13:29)
--- NOTE | 2018-07-25 12:15 | CASEMGMT ---
BERLIN spoke with patient about his discharge plan. He said he wants to go home. [facility]. BERLIN told him BERLIN can call the [facility] at [facility] and see where they are with things. BERLIN called [facility] and left a requesting a return call. Vonnie GARCIA
--- NOTE | 2018-07-25 13:11 | PCM.PROGNOTE ---
<Elizabeth Lee - Last Filed: 07/25/18 13:39> Patient Problems: Active and Suspected Problems Generalized weakness (Acute) Subjective: Patient seen and examined. Breathing improved. Denies any complaints. No acute events overnight. - Physical Exam General: Alert, Oriented x3, Cooperative HEENT: Atraumatic, PERRLA, EOMI, Normocephalic Oral: Dry Mucosa Neck: Supple, No JVD, Negative Carotid Bruits Lungs: Clear to auscultation, Diminished Cardiovascular: Regular rate, Regular Rhythm, Normal S1, Normal S2, No murmurs Abdomen: Bowel Sounds Present, Soft, Non Tender, Non-Distended Extremities: No clubbing, No cyanosis, No edema, Capillary Refill Less than 3 Seconds Skin: No rashes, No breakdown Musculoskeletal: No Tenderness to Palpation of Joints or Extremities Neurological: Cranial nerves II-XII grossly intact, Neuro grossly intact Psych/Mental Status: Normal Affect, Appropriate Vital Signs Temp Pulse Resp BP Pulse Ox 97.7 F L 86 18 129/59 H 88 07/25/18 08:23 07/25/18 11:59 07/25/18 08:23 07/25/18 08:38 07/25/18 08:42 Oxygen Flow Rate (L/min) 2 Oxygen Delivery Method Nasal Cannula Weight: 151 lb 14.376 oz Body Mass Index (BMI) 22.4 Intake and Output for Last 24 Hours 07/23/18 07/24/18 07/25/18 23:59 23:59 23:59 Intake Total 2269 / 2269 2381.2 / 2381.2 246 / 246 Output Total 2860 / 2860 1375 / 1375 725 / 725 Balance -591 / -591 1006.2 / 1006.2 -479 / -479 Microbiology Past 72 Hours 07/23/18 23:20 Gram Stain - Final Sputum, Expectorated/Coughed Respiratory Culture - Preliminary Appears to be normal respiratory gato. Further studies to follow. 07/22/18 18:45 Blood Culture - Preliminary Blood Culture (Wb) - Right Forearm No growth in 48 hours. 07/22/18 18:40 Blood Culture - Preliminary Blood Culture (Wb) - Arm Right No growth in 48 hours. 07/23/18 00:50 Legionella Antigen - Final Urine, Clean Catch 07/23/18 00:50 Streptococcus pneumoniae Antigen (M - Final Urine, Clean Catch Laboratory Tests Past 24 Hrs 07/22/18 07/25/18 07/25/18 19:35 05:00 05:00 WBC 4.3 L RBC 2.96 L Hgb 8.4 L Hct 25.7 L MCV 86.8 MCH 28.4 MCHC 32.7 RDW 17.5 H RDW Differential 54.2 H Plt Count 119 L MPV 10.0 Sodium 145 Potassium 2.9 L Chloride 111 H Carbon Dioxide 27.0 Anion Gap 7 BUN 17 Creatinine 1.18 Estim Creat Clear Calc 56.36 Est GFR (MDRD) Af Amer 78 Est GFR (MDRD) Non-Af 65 BUN/Creatinine Ratio 14.4 Glucose 116 H Calcium 7.8 L Magnesium Blood Type B POSITIVE Antibody Screen NEGATIVE Crossmatch See Detail 07/25/18 05:00 WBC RBC Hgb Hct MCV MCH MCHC RDW RDW Differential Plt Count MPV Sodium Potassium Chloride Carbon Dioxide Anion Gap BUN Creatinine Estim Creat Clear Calc Est GFR (MDRD) Af Amer Est GFR (MDRD) Non-Af BUN/Creatinine Ratio Glucose Calcium Magnesium 2.2 Blood Type Antibody Screen Crossmatch Medical Necessity - Tobacco Use Smoking Status: Current every day smoker Tobacco Use: Cigarettes Assessment/Plan All Active Problems Generalized weakness (Acute) 1. 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 Trend CBC. Oncology consulted. Stool for [facility] pending[facility] 2 units PRBCs every 1.5 months however has a history of poor follow-up. He was also on EPO as outpatient which he is no longer taking. 2. Acute hypoxia secondary to right lower lobe community-acquired pneumonia-chest x-ray admission with right basilar consolidation. Sputum culture shows normal respiratory gato. Continue supplement oxygen to maintain O2 at or above 90%. Albuterol and DuoNeb aerosol. Transition IV Zosyn to oral Augmentin. Speech therapy consulted given suspicion for aspiration. Speech therapy recommending pur?ed textures with nectar thick liquids and supervised all meals. Urine for strep and Legionella negative. Blood cultures show no growth in 48 hours. IS/PEP. Repeat chest x-ray in a.m. 3. Acute Epistaxis, right nasal packing removed by patient- Hold aspirin, plavix. Outpatient f/u with ENT. No further bleeding. 4. CAD-continue metoprolol, statin. Hold aspirin, Plavix. Patient denies history of stents. 5. History of aortic valve repair 6. Type 2 diabetes mellitus-not on regimen. Hemoglobin A1c less than 3.5%? Accu-Cheks discontinued. 7. Depression-continue home sertraline/trazodone regimen. 8. Hypokalemia-replace per protocol. Trend BMP. 9. History of CVA x2-it was initially unclear on admission why patient was on dual antiplatelet therapy with aspirin and Plavix. Records obtained from [place] which note that patient has a history of CVA x2 most recently in 2016. DVT prophylaxis-hold pharmacologic prophylaxis given epistaxis, SCDs. Discharge planning: Patient requiring significant assistance with physical therapy. Anticipate need for SNF at discharge. Patient wishes to return to [facility] where he has spent time for rehab in the past. Follow PT recommendations. This patient was seen by RILEY Ramirez under the supervision of Dr. Bernabe. <Katerina Bernabe - Last Filed: 07/25/18 16:01> - Physical Exam Vital Signs Temp Pulse Resp BP Pulse Ox 98.8 F 91 18 134/58 H 95 07/25/18 14:18 07/25/18 14:18 07/25/18 14:18 07/25/18 14:18 07/25/18 14:18 Oxygen Flow Rate (L/min) 1 Oxygen Delivery Method Nasal Cannula Weight: 151 lb 14.376 oz Body Mass Index (BMI) 22.4 Intake and Output for Last 24 Hours 07/23/18 07/24/18 07/25/18 23:59 23:59 23:59 Intake Total 2269 / 2269 2381.2 / 2381.2 646 / 646 Output Total 2860 / 2860 1375 / 1375 725 / 725 Balance -591 / -591 1006.2 / 1006.2 -79 / -79 Microbiology Past 72 Hours 07/23/18 23:20 Gram Stain - Final Sputum, Expectorated/Coughed Respiratory Culture - Preliminary Appears to be normal respiratory gato. Further studies to follow. 07/22/18 18:45 Blood Culture - Preliminary Blood Culture (Wb) - Right Forearm No growth in 48 hours. 07/22/18 18:40 Blood Culture - Preliminary Blood Culture (Wb) - Arm Right No growth in 48 hours. 07/23/18 00:50 Legionella Antigen - Final Urine, Clean Catch 07/23/18 00:50 Streptococcus pneumoniae Antigen (M - Final Urine, Clean Catch Laboratory Tests Past 24 Hrs 07/22/18 07/23/18 07/25/18 19:35 04:30 05:00 WBC 4.3 L RBC 2.96 L Hgb 8.4 L Hct 25.7 L MCV 86.8 MCH 28.4 MCHC 32.7 RDW 17.5 H RDW Differential 54.2 H Plt Count 119 L MPV 10.0 [address] Review Reviewed Sodium Potassium Chloride Carbon Dioxide Anion Gap BUN Creatinine Estim Creat Clear Calc Est GFR (MDRD) Af Amer Est GFR (MDRD) Non-Af BUN/Creatinine Ratio Glucose Calcium Magnesium Crossmatch See Detail 07/25/18 07/25/18 05:00 05:00 WBC RBC Hgb Hct MCV MCH MCHC RDW RDW Differential Plt Count MPV Diff Path Review Sodium 145 Potassium 2.9 L Chloride 111 H Carbon Dioxide 27.0 Anion Gap 7 BUN 17 Creatinine 1.18 Estim Creat Clear Calc 56.36 Est GFR (MDRD) Af Amer 78 Est GFR (MDRD) Non-Af 65 BUN/Creatinine Ratio 14.4 Glucose 116 H Calcium 7.8 L Magnesium 2.2 Crossmatch Assessment/Plan Patient seen by Elizabeth Lee NP-Elisa under my supervision Patient seen and examined this morning. He had no complaints. Shortness of breath had improved. He denies any fever or chills, palpitations or dizziness, abdominal pain, diarrhea vomiting. Review of systems otherwise negative. Labs and vitals reviewed. o/e: Vital Signs Height 5 ft 8.9 in Weight: 151 lb 14.376 oz Weight in Pounds 151.9 lbs Pulse Ox 95 Temperature 98.8 F Pulse Rate 91 Respiratory Rate 18 Blood Pressure 134/58 Blood Pressure Position Sitting General: Alert, Oriented x3, Cooperative HEENT: Atraumatic, PERRLA, EOMI, Normocephalic Oral: Dry Mucosa Neck: Supple, No JVD, Negative Carotid Bruits Lungs: Clear to auscultation, Diminished breath sounds bibasally, on 1L of oxygen Cardiovascular: Regular rate, Regular Rhythm, Normal S1, Normal S2, No murmurs Abdomen: Bowel Sounds Present, Soft, Non Tender, Non-Distended Extremities: No clubbing, No cyanosis, No edema, Capillary Refill Less than 3 Seconds Skin: No rashes, No breakdown Musculoskeletal: No Tenderness to Palpation of Joints or Extremities Neurological: Cranial nerves II-XII grossly intact, Neuro grossly intact Psych/Mental Status: Normal Affect, Appropriate Plan is to switch IV antibiotics to p.o. Augmentin today. Blood cultures were negative for 48 hours and sputum cultures also negative. Urine for strep and Legionella antigens were also negative. Potassium noted to be 2.9 today and this was replaced. Magnesium is within normal limits. Patient requesting to go home but has no close family or friends to help in the still 2 person assist. Will therefore likely need SNF placement. [facility] Oncology also consulted on account of patient's MDS which necessitates frequent transfusions. He is received 4 units of PRBC transfusion so far during this admission. Has not been compliant with his EPO. Rest of management as per Elizabeth Lee IT APPLICATION SUPPORT ANALYST-C's note, which I have reviewed and endorse Code Visit Inpatient E&M: 17816 Subs Hosp L3
[2018-07-25] MEDS: Ipratropium/Albuterol Sulfate 3 ML AMPUL.NEB INHALATION ×2 (13:20→19:30)
--- NOTE | 2018-07-25 13:26 | PN_ITS ---
<Elizabeth Lee - Last Filed: 07/25/18 13:39> Patient Problems: Active and Suspected Problems Generalized weakness (Acute) Subjective: Patient seen and examined. Breathing improved. Denies any complaints. No acute events overnight. - Physical Exam General: Alert, Oriented x3, Cooperative HEENT: Atraumatic, PERRLA, EOMI, Normocephalic Oral: Dry Mucosa Neck: Supple, No JVD, Negative Carotid Bruits Lungs: Clear to auscultation, Diminished Cardiovascular: Regular rate, Regular Rhythm, Normal S1, Normal S2, No murmurs Abdomen: Bowel Sounds Present, Soft, Non Tender, Non-Distended Extremities: No clubbing, No cyanosis, No edema, Capillary Refill Less than 3 Seconds Skin: No rashes, No breakdown Musculoskeletal: No Tenderness to Palpation of Joints or Extremities Neurological: Cranial nerves II-XII grossly intact, Neuro grossly intact Psych/Mental Status: Normal Affect, Appropriate Vital Signs Temp Pulse Resp BP Pulse Ox 97.7 F L 86 18 129/59 H 88 07/25/18 08:23 07/25/18 11:59 07/25/18 08:23 07/25/18 08:38 07/25/18 08:42 Oxygen Flow Rate (L/min) 2 Oxygen Delivery Method Nasal Cannula Weight: 151 lb 14.376 oz Body Mass Index (BMI) 22.4 Intake and Output for Last 24 Hours 07/23/18 07/24/18 07/25/18 23:59 23:59 23:59 Intake Total 2269 / 2269 2381.2 / 2381.2 246 / 246 Output Total 2860 / 2860 1375 / 1375 725 / 725 Balance -591 / -591 1006.2 / 1006.2 -479 / -479 Microbiology Past 72 Hours 07/23/18 23:20 Gram Stain - Final Sputum, Expectorated/Coughed Respiratory Culture - Preliminary Appears to be normal respiratory gato. Further studies to follow. 07/22/18 18:45 Blood Culture - Preliminary Blood Culture (Wb) - Right Forearm No growth in 48 hours. 07/22/18 18:40 Blood Culture - Preliminary Blood Culture (Wb) - Arm Right No growth in 48 hours. 07/23/18 00:50 Legionella Antigen - Final Urine, Clean Catch 07/23/18 00:50 Streptococcus pneumoniae Antigen (M - Final Urine, Clean Catch Laboratory Tests Past 24 Hrs 07/22/18 07/25/18 07/25/18 19:35 05:00 05:00 WBC 4.3 L RBC 2.96 L Hgb 8.4 L Hct 25.7 L MCV 86.8 MCH 28.4 MCHC 32.7 RDW 17.5 H RDW Differential 54.2 H Plt Count 119 L MPV 10.0 Sodium 145 Potassium 2.9 L Chloride 111 H Carbon Dioxide 27.0 Anion Gap 7 BUN 17 Creatinine 1.18 Estim Creat Clear Calc 56.36 Est GFR (MDRD) Af Amer 78 Est GFR (MDRD) Non-Af 65 BUN/Creatinine Ratio 14.4 Glucose 116 H Calcium 7.8 L Magnesium Blood Type B POSITIVE Antibody Screen NEGATIVE Crossmatch See Detail 07/25/18 05:00 WBC RBC Hgb Hct MCV MCH MCHC RDW RDW Differential Plt Count MPV Sodium Potassium Chloride Carbon Dioxide Anion Gap BUN Creatinine Estim Creat Clear Calc Est GFR (MDRD) Af Amer Est GFR (MDRD) Non-Af BUN/Creatinine Ratio Glucose Calcium Magnesium 2.2 Blood Type Antibody Screen Crossmatch Medical Necessity - Tobacco Use Smoking Status: Current every day smoker Tobacco Use: Cigarettes Assessment/Plan All Active Problems Generalized weakness (Acute) 1. 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 Trend CBC. Oncology consulted. Stool for OB pending. [facility] 2 units PRBCs every 1.5 months however has a history of poor follow-up. He was also on EPO as outpatient which he is no longer taking. 2. Acute hypoxia secondary to right lower lobe community-acquired pneumonia- chest x-ray admission with right basilar consolidation. Sputum culture shows normal respiratory gato. Continue supplement oxygen to maintain O2 at or above 90%. Albuterol and DuoNeb aerosol. Transition IV Zosyn to oral Augmentin. Speech therapy consulted given suspicion for aspiration. Speech therapy recommending pur?ed textures with nectar thick liquids and supervised all meals. Urine for strep and Legionella negative. Blood cultures show no growth in 48 hours. IS/PEP. Repeat chest x-ray in a.m. 3. Acute Epistaxis, right nasal packing removed by patient- Hold aspirin, plav ix. Outpatient f/u with ENT. No further bleeding. 4. CAD-continue metoprolol, statin. Hold aspirin, Plavix. Patient denies history of stents. 5. History of aortic valve repair 6. Type 2 diabetes mellitus-not on regimen. Hemoglobin A1c less than 3.5%? Accu-Cheks discontinued. 7. Depression-continue home sertraline/trazodone regimen. 8. Hypokalemia-replace per protocol. Trend BMP. 9. History of CVA x2-it was initially unclear on admission why patient was on dual antiplatelet therapy with aspirin and Plavix. Records obtained from [place] which note that patient has a history of CVA x2 most recently in 2016. DVT prophylaxis-hold pharmacologic prophylaxis given epistaxis, SCDs. Discharge planning: Patient requiring significant assistance with physical therapy. Anticipate need for SNF at discharge. Patient wishes to return to [facility] where he has spent time for rehab in the past. Follow PT recommendations. This patient was seen by RILEY Ramirez under the supervision of Dr. Bernabe. <Katerina Bernabe - Last Filed: 07/25/18 16:01> - Physical Exam Vital Signs Temp Pulse Resp BP Pulse Ox 98.8 F 91 18 134/58 H 95 07/25/18 14:18 07/25/18 14:18 07/25/18 14:18 07/25/18 14:18 07/25/18 14:18 Oxygen Flow Rate (L/min) 1 Oxygen Delivery Method Nasal Cannula Weight: 151 lb 14.376 oz Body Mass Index (BMI) 22.4 Intake and Output for Last 24 Hours 07/23/18 07/24/18 07/25/18 23:59 23:59 23:59 Intake Total 2269 / 2269 2381.2 / 2381.2 646 / 646 Output Total 2860 / 2860 1375 / 1375 725 / 725 Balance -591 / -591 1006.2 / 1006.2 -79 / -79 Microbiology Past 72 Hours 07/23/18 23:20 Gram Stain - Final Sputum, Expectorated/Coughed Respiratory Culture - Preliminary Appears to be normal respiratory gato. Further studies to follow. 07/22/18 18:45 Blood Culture - Preliminary Blood Culture (Wb) - Right Forearm No growth in 48 hours. 07/22/18 18:40 Blood Culture - Preliminary Blood Culture (Wb) - Arm Right No growth in 48 hours. 07/23/18 00:50 Legionella Antigen - Final Urine, Clean Catch 07/23/18 00:50 Streptococcus pneumoniae Antigen (M - Final Urine, Clean Catch Laboratory Tests Past 24 Hrs 07/22/18 07/23/18 07/25/18 19:35 04:30 05:00 WBC 4.3 L RBC 2.96 L Hgb 8.4 L Hct 25.7 L MCV 86.8 MCH 28.4 MCHC 32.7 RDW 17.5 H RDW Differential 54.2 H Plt Count 119 L MPV 10.0 Diff Path Review Reviewed Sodium Potassium Chloride Carbon Dioxide Anion Gap BUN Creatinine Estim Creat Clear Calc Est GFR (MDRD) Af Amer Est GFR (MDRD) Non-Af BUN/Creatinine Ratio Glucose Calcium Magnesium Crossmatch See Detail 07/25/18 07/25/18 05:00 05:00 WBC RBC Hgb Hct MCV MCH MCHC RDW RDW Differential Plt Count MPV Diff Path Review Sodium 145 Potassium 2.9 L Chloride 111 H Carbon Dioxide 27.0 Anion Gap 7 BUN 17 Creatinine 1.18 Estim Creat Clear Calc 56.36 Est GFR (MDRD) Af Amer 78 Est GFR (MDRD) Non-Af 65 BUN/Creatinine Ratio 14.4 Glucose 116 H Calcium 7.8 L Magnesium 2.2 Crossmatch Assessment/Plan Patient seen by Elizabeth Lee NP-Elisa under my supervision Patient seen and examined this morning. He had no complaints. Shortness of breath had improved. He denies any fever or chills, palpitations or dizziness, abdominal pain, diarrhea vomiting. Review of systems otherwise negative. Labs and vitals reviewed. o/e: Vital Signs Height 5 ft 8.9 in Weight: 151 lb 14.376 oz Weight in Pounds 151.9 lbs Pulse Ox 95 Temperature 98.8 F Pulse Rate 91 Respiratory Rate 18 Blood Pressure 134/58 Blood Pressure Position Sitting General: Alert, Oriented x3, Cooperative HEENT: Atraumatic, PERRLA, EOMI, Normocephalic Oral: Dry Mucosa Neck: Supple, No JVD, Negative Carotid Bruits Lungs: Clear to auscultation, Diminished breath sounds bibasally, on 1L of oxygen Cardiovascular: Regular rate, Regular Rhythm, Normal S1, Normal S2, No murmurs Abdomen: Bowel Sounds Present, Soft, Non Tender, Non-Distended Extremities: No clubbing, No cyanosis, No edema, Capillary Refill Less than 3 Seconds Skin: No rashes, No breakdown Musculoskeletal: No Tenderness to Palpation of Joints or Extremities Neurological: Cranial nerves II-XII grossly intact, Neuro grossly intact Psych/Mental Status: Normal Affect, Appropriate Plan is to switch IV antibiotics to p.o. Augmentin today. Blood cultures were negative for 48 hours and sputum cultures also negative. Urine for strep and Legionella antigens were also negative. Potassium noted to be 2.9 today and this was replaced. Magnesium is within normal limits. Patient requesting to go home but has no close family or friends to help in the still 2 person assist. Will therefore likely need SNF placement. [facility] Oncology also consulted on account of patient's MDS which necessitates frequent transfusions. He is received 4 units of PRBC transfusion so far during this admission. Has not been compliant with his EPO. Rest of management as per Elizabeth Lee AIRCRAFT ARMORER-C's note, which I have reviewed and endorse Code Visit Inpatient E&M: 81121 Subs Hosp L3
[2018-07-25 13:30] LABS: Pathologist Review Reviewed
--- NOTE | 2018-07-25 14:00 | CASEMGMT ---
Addendum entered by Vonnie Bazzi 07/25/18 14:22: SW spoke with [facility] and they were scheduled to go out to patient's home tomorrow at 11a to set up a schedule. SW let her know patient is in the hospital and SW can let them know when he leaves. Vonnie GARCIA Original Note: BERLIN spoke with BERLIN Manzanares at [facility] in [place]. She said patient is 100% service connected so if he needed to go to a senior care he could go under [facility]. The closest [facility] contracted facility [facility]. She said patient has been approved and set up with home health aides. He gets 4 hours of aide services a week. He would likely qualify for more, but that is all he wanted at the time they were setting it up. She said the aides are through [facility]. Their phone number is [phone]. She asked that SW keep her updated on his d/c plan. Vonnie GARCIA
[2018-07-25] MEDS: Amox/Clavulanate 875 MG Tablet PO ×2 (15:43→21:33)
[2018-07-25] MEDS: Gabapentin 300 MG Capsule PO (21:34)
[2018-07-25] MEDS: Atorvastatin Calcium 20 MG Tablet PO (21:34)
[2018-07-25] MEDS: traZODone 50 MG Tablet 25 MG PO (21:34)
[2018-07-26] VITALS (11 sets, daily range): BP systolic 120–142; BP diastolic 55–71; PULSE 77–93; RESP 16–20; TEMP 36.5–36.6; O2SAT 90–97
[2018-07-26] MEDS: Ipratropium/Albuterol Sulfate 3 ML AMPUL.NEB INHALATION ×3 (01:46→13:10)
--- NOTE | 2018-07-26 04:05 | RAD_ITS ---
STUDY: X-RAY CHEST REASON FOR EXAM: Male, 68 years old. Dyspnea and shortness of breath. TECHNIQUE: Single AP portable view of the chest. COMPARISON: Comparison is made with prior study dated July 22, 2018. FINDINGS: EKG electrodes are seen. Persistent right lower lobe infiltration. There has been mild improvement as compared to prior study. Blunting of the right costophrenic angle. Sternal cerclage wires and vascular clips are present from a prior sternotomy and coronary artery bypass graft procedure (CABG). Mild cardiomegaly. Normal mediastinum and kyra. Normal visualized pulmonary arteries. There is atherosclerotic calcification of the aortic arch with tortuosity. There are diffuse degenerative changes of the visualized thoracic spine. Normal visualized ribs, clavicles, and shoulders. There is no demonstrated abnormality of the visualized soft tissue structures of the upper abdomen. RAD/Chest 1 View (Portable) IMPRESSION: Persistent right lower lobe consolidation although there has been improvement as compared to prior study. Electronically Signed: Johnathan Quinteros, at 10:18 EDT , Service support ,
[2018-07-26 06:50] LABS: Hematocrit 26.1 % (40-54); Hemoglobin 8.4 g/dl (13.0-16.5); Mean Corp Hgb Conc 32.2 g/gl (32-36); Mean Corpuscular Hgb 28.3 pg (27.0-32.0); Mean Corpuscular Volume 87.9 fL (80-94); Mean Platelet Vol. 9.9 fl (6.2-12.0); Platelet Count 113 K/mm3 (150-450); RBC Distribution Width CV 18.1 % (11.6-14.6); RBC Distribution Width SD 57.7 fl (35.1-43.9); Red Blood Count 2.97 M/mm3 (4.6-6.2); White Blood Count 3.7 K/mm3 (4.4-11.0)
[2018-07-26 06:54] LABS: Scan Indicated on CBC? Y/N NO
[2018-07-26 07:31] LABS: Anion Gap 5 (5-15); BUN 15 mg/dL (7-18); BUN/Creat Ratio 15.2 RATIO (10-20); Calcium,Total 8.2 mg/dL (8.5-10.1); Chloride 113 mmol/L (98-107); Creatinine, Serum 0.99 mg/dL (0.70-1.30); EST Glomerular Filtration Rate 80 mL/min (>60); Est Glom Filt Rate - Afr Amer 96 mL/min (>60); Estimated Creatinine Clearance 67.17 ml/min; Glucose 95 mg/dL (74-106); Potassium 3.6 mmol/L (3.5-5.1); Sodium Level 145 mmol/L (136-145)
[2018-07-26] MEDS: Amox/Clavulanate 875 MG Tablet PO (09:21)
[2018-07-26] MEDS: BMX LIQUID 180 ML 10 ML PO (09:21)
[2018-07-26] MEDS: Metoprolol Tartrate 50 MG Tablet PO (09:22)
[2018-07-26] MEDS: Sertraline 100 MG Tablet 150 MG PO (09:27)
[2018-07-26] MEDS: Menthol/Lanolin/Calamine/Znox 113 GM Tube 1 APPLIC TOPICAL (09:28)
--- NOTE | 2018-07-26 11:15 | CASEMGMT ---
Addendum entered by Vonnie Bazzi 07/26/18 13:50: Received call from Leighton at [facility] and she said that the RN wants to know if patient wants to transfer to [facility]. BERLIN told her [facility] called [facility] at admission and they had no beds. SW told her patient is being discharged today. She asked if SW could just ask patient. SW spoke with patient and he does not want to be transferred as he is being discharged and wants to go home. BERLIN called Leighton at [facility] back and let her know. She will let the RN know. Vonnie KIMBALL NUCLEAR CONTROL ROOM OPERATOR Original Note: Addendum entered by Vonnie Bazzi 07/26/18 13:07: Received a call from Leighton at [facility]. She said SW needs to fax the order to [facility] release fax. BERLIN needs to write ATTN: PACT 5 and ask that they sign the order and fax back so we can arrange home health for patient. BERLIN let RN CM know this information and she faxed the order. Vonnie KIMBALL NUCLEAR CONTROL ROOM OPERATOR Original Note: Addendum entered by Vonnie Bazzi 07/26/18 11:22: BERLIN called Leighton at [facility] again and left her a voice mail requesting a return call. BERLIN asked about skilled home health as patient's PCP is a [facility] Dr and not sure if they sign orders from a non [facility] facility. Await return call. Vonnie KIMBALL NUCLEAR CONTROL ROOM OPERATOR Original Note: Patient is being discharged today. BERLIN called [facility] and let them know patient is being discharged today. BERLIN also called Leighton, the [facility] SW and left her a message letting her know that patient is being discharged today. BERLIN also let her know SW notified [facility] and we are setting up skilled home health. Vonnie KIMBALL NUCLEAR CONTROL ROOM OPERATOR
--- NOTE | 2018-07-26 11:59 | PCM.DC.SUM ---
<Elizabeth Lee - Last Filed: 07/26/18 12:30> Discharge Date and Diagnosis Date of Admission: 07/22/18 Date of Discharge: 07/26/18 - Primary Discharge Diagnosis Active and Suspected Problems 1. Acute on chronic anemia secondary to MDS 2. Acute hypoxia secondary to right lower lobe community-acquired pneumonia 3. Acute Epistaxis- resolved 4. CAD 5. History of aortic valve repair 6. Type 2 diabetes mellitus 7. Depression 8. Hypokalemia 9. History of CVA x2 - Secondary Discharge Diagnosis Chronic Problems Epistaxis (Chronic) MDS (myelodysplastic syndrome) (Chronic) Hospital Course and Treatment Imaging Results: Diagnostic Data Chest X-Ray 07/26/18 04:05 IMPRESSION: Persistent right lower lobe consolidation although there has been improvement as compared to prior study. Electronically Signed: Johnathan Quinteros, at 10:18 EDT , Service support , Dr. Lam- Oncology/Hematology Operations: None Procedures: None Summary of Care Provided: The patient is a 68 year old M admitted 07/22/2018 due to generalized weakness and epistaxis. 1. 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 Oncology consulted. Stool for OB negative. [facility] 2 units PRBCs every 1.5 months however has a history of poor follow-up. He was also on EPO as outpatient. He acknowledges that he recently lost follow-up with [place] [facility]. He reports he previously had blood draws every Wednesday with EPO injection later in the week. He will continue outpatient follow-up with [place] [facility] on previous schedule at discharge. 2. Acute hypoxia secondary to right lower lobe community-acquired pneumonia-chest x-ray admission with right basilar consolidation. Sputum culture shows normal respiratory gato. Urine strep and Legionella negative. Patient was weaned off of supplemental oxygen. Transition IV Zosyn to oral Augmentin. Continue dietary modifications per speech therapy recommendation including pur?ed textures and nectar thick liquids. Speech therapy will continue to follow as outpatient. Blood cultures negative. Repeat chest x-ray shows improvement in right lower lobe consolidation. [facility] within 1 week. 3. Acute Epistaxis, right nasal packing removed by patient-he has not had further epistaxis. Plavix discontinued going forward. He will resume aspirin at discharge given history of CVA, CAD. However if he has recurrent epistaxis, he may need to be off aspirin as well. 4. CAD-continue metoprolol, statin, aspirin. Plavix discontinued. He denies history of stents. 5. History of aortic valve repair 6. Type 2 diabetes mellitus-not on regimen. Hemoglobin A1c less than 3.5%? Accu-Cheks discontinued. 7. Depression-continue home sertraline/trazodone regimen. 8. Hypokalemia-replace per protocol. Resolved. 9. History of CVA x2-it was initially unclear on admission why patient was on dual antiplatelet therapy with aspirin and Plavix. Records obtained from [place] which note that patient has a history of CVA x2 most recently in 2016. Continue aspirin at discharge. General: Alert, Oriented x3, Cooperative HEENT: Atraumatic, PERRLA, EOMI, Normocephalic Oral: Dry Mucosa Neck: Supple, No JVD, Negative Carotid Bruits Lungs: Clear to auscultation, Diminished Cardiovascular: Regular rate, Regular Rhythm, Normal S1, Normal S2, No murmurs Abdomen: Bowel Sounds Present, Soft, Non Tender, Non-Distended Extremities: No clubbing, No cyanosis, No edema, Capillary Refill Less than 3 Seconds Skin: No rashes, No breakdown Musculoskeletal: No Tenderness to Palpation of Joints or Extremities Neurological: Cranial nerves II-XII grossly intact, Neuro grossly intact Psych/Mental Status: Normal Affect, Appropriate Patient seen and examined prior to discharge. Physical assessment as noted above. Patient is stable for discharge with follow up recommendations as noted above. Patient will be discharged home with home health and aide services as well as therapies. This patient was seen by RILEY Ramirez under the supervision of Dr. Bernabe. - Physical Exam Vital Signs Temp Pulse Resp BP Pulse Ox 97.9 F 83 18 127/55 H 93 07/26/18 08:07 07/26/18 09:22 07/26/18 08:07 07/26/18 08:07 07/26/18 08:07 Oxygen Flow Rate (L/min) 1 Oxygen Delivery Method Room Air Weight: 151 lb 14.376 oz Body Mass Index (BMI) 22.4 Intake and Output for Last 24 Hours 03/07/25/18 07/26/18 23:59 23:59 23:59 Intake Total 2381.2 / 2381.2 796 / 796 0 / 0 Output Total 1375 / 1375 925 / 925 0 / 0 Balance 1006.2 / 1006.2 -129 / -129 0 / 0 Microbiology Past 72 Hours 07/26/18 10:10 Stool Occult Blood (ONUR) - Final Stool 07/23/18 23:20 Gram Stain - Final Sputum, Expectorated/Coughed Respiratory Culture - Final Mixed normal respiratory gato. No Streptococcus pneumoniae, beta-hemolytic Streptococcus or Staphylococcus aureus isolated. 07/22/18 18:45 Blood Culture - Preliminary Blood Culture (Wb) - Right Forearm No growth in 48 hours. 07/22/18 18:40 Blood Culture - Preliminary Blood Culture (Wb) - Arm Right No growth in 48 hours. Laboratory Tests Past 24 Hrs 07/23/18 07/26/18 07/26/18 04:30 06:24 06:24 WBC 3.7 L RBC 2.97 L Hgb 8.4 L Hct 26.1 L MCV 87.9 MCH 28.3 MCHC 32.2 RDW 18.1 H RDW Differential 57.7 H Plt Count 113 L MPV 9.9 [address] Review Reviewed Sodium 145 Potassium 3.6 Chloride 113 H Carbon Dioxide 27.0 Anion Gap 5 BUN 15 Creatinine 0.99 Estim Creat Clear Calc 67.17 Est GFR (MDRD) Af Amer 96 Est GFR (MDRD) Non-Af 80 BUN/Creatinine Ratio 15.2 Glucose 95 Calcium 8.2 L Discharge Diet: No Restrictions Discharge Activity: Return to Normal Activity Call your doctor if you observe: Shortness of breath, Dizziness, Fainting spells, Chest pain Home Medications: Medications to take at Discharge Acetaminophen 325 mg PO Q6H PRN PRN 07/22/18 Aspirin [Adult Aspirin Regimen] 81 mg PO DAILY 07/22/18 Atorvastatin Calcium 20 mg PO QHS 07/22/18 Cholecalciferol (Vitamin D3) [Vitamin D3] 2,000 unit PO DAILY 07/22/18 Gabapentin [Neurontin] 300 mg PO QHS 07/22/18 Metoprolol Tartrate [Lopressor (beta krystina)] 50 mg PO BID 07/22/18 Sertraline HCl 150 mg PO DAILY 07/22/18 traZODone [Desyrel] 25 mg PO QHS 07/22/18 Amox/Clavulanate Tablet [Augmentin Tablet] 875 mg PO BID #10 tablet 07/26/18 Following Prescrptions Were Given to Patient: Amox/Clavulanate Tablet [Augmentin Tablet] 875 mg PO BID #10 tablet Primary Care Physician: Care Physician,No Primary [Primary Care Provider] - Please follow up with your Primary Care Physician in: 1 Week Please Follow Up With: [place] [facility] When: 08/01/18 Disposition: Home with Home Health Minutes spent on discharge:: 35 Patient Condition:: Stable Medical Necessity - Tobacco Use Smoking Status: Current every day smoker Tobacco Use: Cigarettes Meaningful Use Info Meaningful Use Diagnoses (Choose all that apply): None applicable <FlorecitaKaterina Moore - Last Filed: 07/26/18 14:04> Discharge Date and Diagnosis - Secondary Discharge Diagnosis Chronic Problems Epistaxis (Chronic) MDS (myelodysplastic syndrome) (Chronic) Hospital Course and Treatment Summary of Care Provided: Patient seen by Elizabeth LIN under my supervision The patient is a 68 year old M with past medical history as listed was admitted with a complaint of generalized weakness and a nosebleed on the day of admission. He had a history of MDS and was transfusion dependent. On admission, chest x-ray showed a right lower lobe infiltrate. He did not have any leukocytosis but his hemoglobin was 5.7. Was requiring 2 L of oxygen to maintain saturation above 90%. He had a small nosebleed which resolved with packing of the nostrils. He was admitted and managed for community-acquired right lower lobe pneumonia and acute on chronic anemia due to MDS. He received a total of 4 units of packed red blood cells during admission. Sputum culture was negative and urine for strep and Legionella antigens were also negative. He was started on IV Zosyn and eventually transitioned to oral Augmentin. Patient had been lost to follow-up for EPO on account of anemia. He usually followed up at the [place]. Patient was counseled to follow-up at the [place]. Epistasis also resolved. Plavix was discontinued permanently and he was continued on aspirin. He is to follow-up with his primary care doctor in 1 week. Of note, PT recommended that patient should be discharged on SNF. However patient refused and insisted on going home. He was discharged home on 07/26/18 with a prescription for p.o. Augmentin. He is to follow-up with his primary care doctor and motor rebuilder at the [place]. Patient seen and examined prior to discharge. He had no complaints and felt well. Review of systems otherwise negative. Labs and vitals reviewed . Home medications reviewed and reconciled. o/e: Vital Signs Height 5 ft 8.9 in Weight: 151 lb 14.376 oz Weight in Pounds 151.9 lbs Pulse Ox [AMBULATING on Room 90 Air] Pulse Ox 93 Temperature 97.9 F Pulse Rate 83 Respiratory Rate 18 Blood Pressure 127/55 Blood Pressure Position Semi-Fowlers General: Alert, Oriented x3, Cooperative HEENT: Atraumatic, PERRLA, EOMI, Normocephalic Oral: Dry Mucosa Neck: Supple, No JVD, Negative Carotid Bruits Lungs: Clear to auscultation, Diminished breath sounds bibasally, on room air. Cardiovascular: Regular rate, Regular Rhythm, Normal S1, Normal S2, No murmurs Abdomen: Bowel Sounds Present, Soft, Non Tender, Non-Distended Extremities: No clubbing, No cyanosis, No edema, Capillary Refill Less than 3 Seconds Skin: No rashes, No breakdown Musculoskeletal: No Tenderness to Palpation of Joints or Extremities Neurological: Cranial nerves II-XII grossly intact, Neuro grossly intact Psych/Mental Status: Normal Affect, Appropriate [] Plan as discussed above. Rest as per Elizabeth Lee [employer] ARCHITECT-C's note, which I have reviewed and endorse. - Physical Exam Vital Signs Temp Pulse Resp BP Pulse Ox 97.9 F 83 18 127/55 H 90 07/26/18 08:07 07/26/18 09:22 07/26/18 08:07 07/26/18 08:07 07/26/18 13:25 Oxygen Flow Rate (L/min) [ 0 AMBULATING on Room Air] Oxygen Flow Rate (L/min) 1 Oxygen Delivery Method Room Air Weight: 151 lb 14.376 oz Body Mass Index (BMI) 22.4 Intake and Output for Last 24 Hours 07/24/18 07/25/18 07/26/18 23:59 23:59 23:59 Intake Total 2381.2 / 2381.2 796 / 796 0 / 0 Output Total 1375 / 1375 925 / 925 0 / 0 Balance 1006.2 / 1006.2 -129 / -129 0 / 0 Microbiology Past 72 Hours 07/26/18 10:10 Stool Occult Blood (ONUR) - Final Stool 07/23/18 23:20 Gram Stain - Final Sputum, Expectorated/Coughed Respiratory Culture - Final Mixed normal respiratory gato. No Streptococcus pneumoniae, beta-hemolytic Streptococcus or Staphylococcus aureus isolated. 07/22/18 18:45 Blood Culture - Preliminary Blood Culture (Wb) - Right Forearm No growth in 48 hours. 07/22/18 18:40 Blood Culture - Preliminary Blood Culture (Wb) - Arm Right No growth in 48 hours. Laboratory Tests Past 24 Hrs 07/26/18 07/26/18 06:24 06:24 WBC 3.7 L RBC 2.97 L Hgb 8.4 L Hct 26.1 L MCV 87.9 MCH 28.3 MCHC 32.2 RDW 18.1 H RDW Differential 57.7 H Plt Count 113 L MPV 9.9 Sodium 145 Potassium 3.6 Chloride 113 H Carbon Dioxide 27.0 Anion Gap 5 BUN 15 Creatinine 0.99 Estim Creat Clear Calc 67.17 Est GFR (MDRD) Af Amer 96 Est GFR (MDRD) Non-Af 80 BUN/Creatinine Ratio 15.2 Glucose 95 Calcium 8.2 L Code Visit Inpatient E&M: 62270 Disch Hosp
--- NOTE | 2018-07-26 12:08 | DS.PCM_ITS ---
Addendum entered and electronically signed by RILEY Ramirez 07/26/18 12:30: Code Visit Additionally: Patient was recommended to go to SNF at discharge for further therapy and he declined. Patient insistent on returning home at discharge with home health and aide services. Original Note: <Elizabeth Lee - Last Filed: 07/26/18 12:30> Discharge Date and Diagnosis Date of Admission: 07/22/18 Date of Discharge: 07/26/18 - Primary Discharge Diagnosis Active and Suspected Problems 1. Acute on chronic anemia secondary to MDS 2. Acute hypoxia secondary to right lower lobe community-acquired pneumonia 3. Acute Epistaxis- resolved 4. CAD 5. History of aortic valve repair 6. Type 2 diabetes mellitus 7. Depression 8. Hypokalemia 9. History of CVA x2 - Secondary Discharge Diagnosis Chronic Problems Epistaxis (Chronic) MDS (myelodysplastic syndrome) (Chronic) Hospital Course and Treatment Imaging Results: Diagnostic Data Chest X-Ray 07/26/18 04:05 IMPRESSION: Persistent right lower lobe consolidation although there has been improvement as compared to prior study. Electronically Signed: Johnathan Quinteros, at 10:18 EDT , Service support , Dr. Lam- Oncology/Hematology Operations: None Procedures: None Summary of Care Provided: The patient is a 68 year old M admitted 07/22/2018 due to generalized weakness and epistaxis. 1. 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 Oncology consulted. Stool for OB negative. [facility] 2 units PRBCs every 1.5 months however has a history of poor follow-up. He was also on EPO as outpatient. He acknowledges that he recently lost follow-up with [place] [facility]. He reports he previously had blood draws every Wednesday with EPO injection later in the week. He will continue outpatient follow-up with [facility] on previous schedule at discharge. 2. Acute hypoxia secondary to right lower lobe community-acquired pneumonia- chest x-ray admission with right basilar consolidation. Sputum culture shows normal respiratory gato. Urine strep and Legionella negative. Patient was weaned off of supplemental oxygen. Transition IV Zosyn to oral Augmentin. Continue dietary modifications per speech therapy recommendation including pur?ed textures and nectar thick liquids. Speech therapy will continue to [facility] as outpatient. Blood cultures negative. Repeat chest x-ray shows improvement in right lower lobe consolidation. [facility]. 3. Acute Epistaxis, right nasal packing removed by patient-he has not had further epistaxis. Plavix discontinued going forward. He will resume aspirin at discharge given history of CVA, CAD. However if he has recurrent epistaxis, he may need to be off aspirin as well. 4. CAD-continue metoprolol, statin, aspirin. Plavix discontinued. He denies history of stents. 5. History of aortic valve repair 6. Type 2 diabetes mellitus-not on regimen. Hemoglobin A1c less than 3.5%? Accu-Cheks discontinued. 7. Depression-continue home sertraline/trazodone regimen. 8. Hypokalemia-replace per protocol. Resolved. 9. History of CVA x2-it was initially unclear on admission why patient was on dual antiplatelet therapy with aspirin and Plavix. Records obtained from [place] which note that patient has a history of CVA x2 most recently in 2016. Continue aspirin at discharge. General: Alert, Oriented x3, Cooperative HEENT: Atraumatic, PERRLA, EOMI, Normocephalic Oral: Dry Mucosa Neck: Supple, No JVD, Negative Carotid Bruits Lungs: Clear to auscultation, Diminished Cardiovascular: Regular rate, Regular Rhythm, Normal S1, Normal S2, No murmurs Abdomen: Bowel Sounds Present, Soft, Non Tender, Non-Distended Extremities: No clubbing, No cyanosis, No edema, Capillary Refill Less than 3 Seconds Skin: No rashes, No breakdown Musculoskeletal: No Tenderness to Palpation of Joints or Extremities Neurological: Cranial nerves II-XII grossly intact, Neuro grossly intact Psych/Mental Status: Normal Affect, Appropriate Patient seen and examined prior to discharge. Physical assessment as noted above. Patient is stable for discharge with follow up recommendations as noted above. Patient will be discharged home with home health and aide services as well as therapies. This patient was seen by RILEY Ramirez under the supervision of Dr. Bernabe. - Physical Exam Vital Signs Temp Pulse Resp BP Pulse Ox 97.9 F 83 18 127/55 H 93 07/26/18 08:07 07/26/18 09:22 07/26/18 08:07 07/26/18 08:07 07/26/18 08:07 Oxygen Flow Rate (L/min) 1 Oxygen Delivery Method Room Air Weight: 151 lb 14.376 oz Body Mass Index (BMI) 22.4 Intake and Output for Last 24 Hours 07/24/18 07/25/18 07/26/18 23:59 23:59 23:59 Intake Total 2381.2 / 2381.2 796 / 796 0 / 0 Output Total 1375 / 1375 925 / 925 0 / 0 Balance 1006.2 / 1006.2 -129 / -129 0 / 0 Microbiology Past 72 Hours 07/26/18 10:10 Stool Occult Blood (ONUR) - Final Stool 07/23/18 23:20 Gram Stain - Final Sputum, Expectorated/Coughed Respiratory Culture - Final Mixed normal respiratory gato. No Streptococcus pneumoniae, beta-hemolytic Streptococcus or Staphylococcus aureus isolated. 07/22/18 18:45 Blood Culture - Preliminary Blood Culture (Wb) - Right Forearm No growth in 48 hours. 07/22/18 18:40 Blood Culture - Preliminary Blood Culture (Wb) - Arm Right No growth in 48 hours. Laboratory Tests Past 24 Hrs 07/23/18 07/26/18 07/26/18 04:30 06:24 06:24 WBC 3.7 L RBC 2.97 L Hgb 8.4 L Hct 26.1 L MCV 87.9 MCH 28.3 MCHC 32.2 RDW 18.1 H RDW Differential 57.7 H Plt Count 113 L MPV 9.9 Diff Path Review Reviewed Sodium 145 Potassium 3.6 Chloride 113 H Carbon Dioxide 27.0 Anion Gap 5 BUN 15 Creatinine 0.99 Estim Creat Clear Calc 67.17 Est GFR (MDRD) Af Amer 96 Est GFR (MDRD) Non-Af 80 BUN/Creatinine Ratio 15.2 Glucose 95 Calcium 8.2 L Discharge Diet: No Restrictions Discharge Activity: Return to Normal Activity Call your doctor if you observe: Shortness of breath, Dizziness, Fainting spells, Chest pain Home Medications: Medications to take at Discharge Acetaminophen 325 mg PO Q6H PRN PRN 07/22/18 Aspirin [Adult Aspirin Regimen] 81 mg PO DAILY 07/22/18 Atorvastatin Calcium 20 mg PO QHS 07/22/18 Cholecalciferol (Vitamin D3) [Vitamin D3] 2,000 unit PO DAILY 07/22/18 Gabapentin [Neurontin] 300 mg PO QHS 07/22/18 Metoprolol Tartrate [Lopressor (beta krystina)] 50 mg PO BID 07/22/18 Sertraline HCl 150 mg PO DAILY 07/22/18 traZODone [Desyrel] 25 mg PO QHS 07/22/18 Amox/Clavulanate Tablet [Augmentin Tablet] 875 mg PO BID #10 tablet 07/26/18 Following Prescrptions Were Given to Patient: Amox/Clavulanate Tablet [Augmentin Tablet] 875 mg PO BID #10 tablet Primary Care Physician: Care Physician,No Primary [Primary Care Provider] - Please follow up with your Primary Care Physician in: 1 Week Please Follow Up With: [place] [facility] When: 08/01/18 Disposition: Home with Home Health Minutes spent on discharge:: 35 Patient Condition:: Stable Medical Necessity - Tobacco Use Smoking Status: Current every day smoker Tobacco Use: Cigarettes Meaningful Use Info Meaningful Use Diagnoses (Choose all that apply): None applicable <Katerina Bernabe - Last Filed: 07/26/18 14:04> Discharge Date and Diagnosis - Secondary Discharge Diagnosis Chronic Problems Epistaxis (Chronic) MDS (myelodysplastic syndrome) (Chronic) Hospital Course and Treatment Summary of Care Provided: Patient seen by Elizabeth LIN under my supervision The patient is a 68 year old M with past medical history as listed was admitted with a complaint of generalized weakness and a nosebleed on the day of admission. He had a history of MDS and was transfusion dependent. On admission, chest x-ray showed a right lower lobe infiltrate. He did not have any leukocytosis but his hemoglobin was 5.7. Was requiring 2 L of oxygen to maintain saturation above 90%. He had a small nosebleed which resolved with packing of the nostrils. He was admitted and managed for community-acquired right lower lobe pneumonia and acute on chronic anemia due to MDS. He received a total of 4 units of packed red blood cells during admission. Sputum culture was negative and urine for strep and Legionella antigens were also negative. He was started on IV Zosyn and eventually transitioned to oral Augmentin. Patient had been lost to follow-up for EPO on account of anemia. He usually followed up at the [place]. Patient was counseled to follow-up at the [place]. Epistasis also resolved. Plavix was discontinued permanently and he was continued on aspirin. He is to follow-up with his primary care doctor in 1 week. Of note, PT recommended that patient should be discharged on SNF. However patient refused and insisted on going home. He was discharged home on 07/26/18 with a prescription for p.o. Augmentin. He is to follow-up with his primary care doctor and blind aide at the [place]. Patient seen and examined prior to discharge. He had no complaints and felt well. Review of systems otherwise negative. Labs and vitals reviewed . Home medications reviewed and reconciled. o/e: Vital Signs Height 5 ft 8.9 in Weight: 151 lb 14.376 oz Weight in Pounds 151.9 lbs Pulse Ox [AMBULATING on Room 90 Air] Pulse Ox 93 Temperature 97.9 F Pulse Rate 83 Respiratory Rate 18 Blood Pressure 127/55 Blood Pressure Position Semi-Fowlers General: Alert, Oriented x3, Cooperative HEENT: Atraumatic, PERRLA, EOMI, Normocephalic Oral: Dry Mucosa Neck: Supple, No JVD, Negative Carotid Bruits Lungs: Clear to auscultation, Diminished breath sounds bibasally, on room air. Cardiovascular: Regular rate, Regular Rhythm, Normal S1, Normal S2, No murmurs Abdomen: Bowel Sounds Present, Soft, Non Tender, Non-Distended Extremities: No clubbing, No cyanosis, No edema, Capillary Refill Less than 3 Seconds Skin: No rashes, No breakdown Musculoskeletal: No Tenderness to Palpation of Joints or Extremities Neurological: Cranial nerves II-XII grossly intact, Neuro grossly intact Psych/Mental Status: Normal Affect, Appropriate [] Plan as discussed above. Rest as per Elizabeth Lee [employer]ER-C's note, which I have reviewed and endorse. - Physical Exam Vital Signs Temp Pulse Resp BP Pulse Ox 97.9 F 83 18 127/55 H 90 07/26/18 08:07 07/26/18 09:22 07/26/18 08:07 07/26/18 08:07 07/26/18 13:25 Oxygen Flow Rate (L/min) [ 0 AMBULATING on Room Air] Oxygen Flow Rate (L/min) 1 Oxygen Delivery Method Room Air Weight: 151 lb 14.376 oz Body Mass Index (BMI) 22.4 Intake and Output for Last 24 Hours 07/24/18 07/25/18 07/26/18 23:59 23:59 23:59 Intake Total 2381.2 / 2381.2 796 / 796 0 / 0 Output Total 1375 / 1375 925 / 925 0 / 0 Balance 1006.2 / 1006.2 -129 / -129 0 / 0 Microbiology Past 72 Hours 07/26/18 10:10 Stool Occult Blood (ONUR) - Final Stool 07/23/18 23:20 Gram Stain - Final Sputum, Expectorated/Coughed Respiratory Culture - Final Mixed normal respiratory gato. No Streptococcus pneumoniae, beta-hemolytic Streptococcus or Staphylococcus aureus isolated. 07/22/18 18:45 Blood Culture - Preliminary Blood Culture (Wb) - Right Forearm No growth in 48 hours. 07/22/18 18:40 Blood Culture - Preliminary Blood Culture (Wb) - Arm Right No growth in 48 hours. Laboratory Tests Past 24 Hrs 07/26/18 07/26/18 06:24 06:24 WBC 3.7 L RBC 2.97 L Hgb 8.4 L Hct 26.1 L MCV 87.9 MCH 28.3 MCHC 32.2 RDW 18.1 H RDW Differential 57.7 H Plt Count 113 L MPV 9.9 Sodium 145 Potassium 3.6 Chloride 113 H Carbon Dioxide 27.0 Anion Gap 5 BUN 15 Creatinine 0.99 Estim Creat Clear Calc 67.17 Est GFR (MDRD) Af Amer 96 Est GFR (MDRD) Non-Af 80 BUN/Creatinine Ratio 15.2 Glucose 95 Calcium 8.2 L Code Visit Inpatient E&M: 23126 Disch Hosp
--- NOTE | 2018-07-26 12:12 | DCINST_ITS ---
You will use the following diet at home:: No restrictions Discharge Activity: Return to Normal Activity Call your doctor if you observe: Shortness of breath, Dizziness, Fainting spells, Chest pain Allergies/Adverse Reactions: Allergies No Known Allergies Allergy (Verified 07/22/18 18:24) Medications to take at Discharge Acetaminophen 325 mg PO Q6H PRN PRN 07/22/18 Aspirin [Adult Aspirin Regimen] 81 mg PO DAILY 07/22/18 Atorvastatin Calcium 20 mg PO QHS 07/22/18 Cholecalciferol (Vitamin D3) [Vitamin D3] 2,000 unit PO DAILY 07/22/18 Gabapentin [Neurontin] 300 mg PO QHS 07/22/18 Metoprolol Tartrate [Lopressor (beta krystina)] 50 mg PO BID 07/22/18 Sertraline HCl 150 mg PO DAILY 07/22/18 traZODone [Desyrel] 25 mg PO QHS 07/22/18 Amox/Clavulanate Tablet [Augmentin Tablet] 875 mg PO BID #10 tablet 07/26/18 The following prescriptions were given: Amox/Clavulanate Tablet [Augmentin Tablet] 875 mg PO BID #10 tablet Primary Care Physician: Care Physician,No Primary [Primary Care Provider] - Please follow up with your Primary Care Physician in: 1 Week Test Results: Test results from this visit will be discussed in further detail at your follow- up appointment, if applicable. Please Follow Up With: [facility] When: 08/01/18 Proposed Discharge Date: 07/26/18
--- NOTE | 2018-07-26 14:09 | CASEMGMT ---
Per Jens SLADE, pt is agreeable to [facility] at this time and [facility]. Call to Irlanda at [facility] and she states that they should be able to take pt at this time. She states that she will be in to speak with pt momentarily. Amando CARDENAS CM
== END 2018-07-26 16:33 | disposition home or self-care (01) | DRG 811 ==
LOC: ED 21:38 → PCU 21:50
PROVIDERS: Internal Medicine; Nurse Practitioner Family; Admitting Provider Internal Medicine; Emergency Provider Emergency Medicine; Referring Provider Internal Medicine; Visit Provider Student in an Organized Health Care Education/Training Program
DX: D46.4 Refractory anemia, unspecified (principal); J18.9 Pneumonia, unspecified organism; E11.9 Type 2 diabetes mellitus without complications; D63.8 Anemia in other chronic diseases classified elsewhere; I25.10 Atherosclerotic heart disease of native coronary artery without angina pectoris; R04.0 Epistaxis; F17.210 Nicotine dependence, cigarettes, uncomplicated; R09.02 Hypoxemia; E87.6 Hypokalemia; F32.9 Major depressive disorder, single episode, unspecified; Z86.73 Personal history of transient ischemic attack (TIA), and cerebral infarction without residual deficits; Z79.82 Long term (current) use of aspirin
CPT/HCPCS: 36415; 71045; 80048; 81001; 82274; 82962; 83036; 83605; 83735; 84484; 85014; 85018; 85025; 85027; 85610; 86850; 86900; 86920; 86922; 87040; 87070; 87205; 87449; 92526; 93005; 94640; 94667; 94668; 97162; 97165; 97530; 97535; 97802; 99285; 99406; J7030; J7040; P9016; A4216; J1940

== ENCOUNTER 2018-07-27 12:30 | Emergency (ER) | payer OTHER, SELFPAY ==
[2018-07-22 23:28] VITALS: BMI 22.4
[2018-07-27 12:31] VITALS: BP 144/63; PULSE 92; RESP 19; TEMP 36.5; O2SAT 96; BMI 23.4
[2018-07-27 12:35] VITALS: BP 144/63; PULSE 96; RESP 17; O2SAT 98
[2018-07-27] MEDS: Oxymetazoline 0.05% 1 SPRAY SPRAY.BTL 2 SPRAY NASAL (13:17)
--- NOTE | 2018-07-27 14:44 | ED.DCSUM_ITS ---
- ER Visit Summary Date of Service: 07/27/18 Chief Complaint: Nosebleed History of Present Illness: The patient is a 68 M who presents with a left-sided nosebleed that started 1 hour prior to arrival. Patient denies any trauma or inciting factors. It has not responded to direct pressure. Patient had a re cent nosebleed and has been holding his aspirin. No other blood thinners. No other complaints. Physical Examination: Afebrile and vital signs are unremarkable. Patient is alert and oriented. No acute distress. He does have mild bleeding from his left nostril. There is a clamp in place. The remainder of his HEENT exam is unremarkable. Airway is patent. Normal breath sounds. Skin appears normal. Atraumatic. Test Results: None performed as he has only had 1 hour of minor bleeding Emergency Department Course and Treatment: Patient was not responding to direct pressure. I applied lidocaine and Afrin to his left nostril. The patient tolerated this well. I did clear the cotton ball and had the patient blow his nose. I could not identify a source of the bleeding. He is not having right side or a lot of posterior bleeding and so I believe he has an anterior bleed. Rapid Rhino was applied. The patient tolerated this well. He was observed in the ED and had no further bleeding. Patient will be treated with Keflex prophylaxis. He will follow-up with Dr. Garcia outpatient follow-up. Return for any complications. Treatment Plan: As above Disposition: Discharge Impression: 1. Left anterior epistaxis This note was generated with [employer] dictation software. It may contain incorrect words, spelling, and punctuation that were not noted in review of the chart prior to signing ED Disposition - Plan for ED Patient: Referrals: Care Physician,No Primary [Primary Care Provider] -
--- NOTE | 2018-07-27 14:44 | ED.DEP ---
ED Disposition - Plan for ED Patient: Instructions: Nosebleed Prescriptions: Cephalexin [Keflex] 500 mg PO Q6 #24 cap Referrals: Mark Garcia MD [STAFF PHYSICIAN] -
[2018-07-27 14:51] VITALS: BP 159/79; PULSE 96; RESP 16; O2SAT 95
[2018-07-27] MEDS: Cephalexin 250 MG Capsule 500 MG PO (14:52)
== END 2018-07-27 15:07 | disposition home or self-care (01) ==
LOC: ED 13:02
PROVIDERS: Emergency Provider Emergency Medicine
DX: R04.0 Epistaxis (principal); I10 Essential (primary) hypertension; Z79.899 Other long term (current) drug therapy
CPT/HCPCS: 30901; 99285

== ENCOUNTER 2018-08-01 15:01 | Emergency (ER) | payer OTHER, SELFPAY ==
[2018-08-01 15:02] VITALS: BP 118/59; PULSE 89; RESP 16; TEMP 36.4; O2SAT 96; BMI 22.4
--- NOTE | 2018-08-01 15:18 | ED.VIS.GEN ---
History of Present Illness Chief Complaint: Foreign Body Detail of Chief Complaint: Rhino Rocket left naris Informant: Patient Onset: - - Patient seen last week. Scheduled to follow-up with Dr. Myers. Patient states he was not seen by Dr[facility] Myers [facility] Context: - - Rhino Rocket for epistaxis Timing: Continuous Quality: Not applicable Location: Left naris Current Severity: Patient requesting removal of packing Maximum Severity: Not applicable Worsened by: Nothing Relieved by: Nothing Associated Symptoms: No fever, chills, facial pain, sinus headache Narrative: Patient is an elderly male on Plavix who presents for removal of Rhino Rocket left naris. He denies bleeding. He denies any constitutional symptoms. He denies HEENT symptoms. He states he was compliant with antibiotic he was prescribed. Prior similar symptoms: Yes Recent Illness/Hospitalization: Yes - Recent ER visit for epistaxis and referral to ENT - Past Medical History (1) Generalized weakness Status: Acute (2) Epistaxis Status: Chronic (3) MDS (myelodysplastic syndrome) Status: Chronic Past Medical History - Allergies and Home Meds Allergies/Adverse Reactions: Allergies No Known Allergies Allergy (Verified 08/01/18 15:05) Primary Care Physician: Care Physician,No Primary [Primary Care Provider] - Prior records reviewed: Yes - When seen for epistaxis Surgical History: coronary bypass surgery, - - Aortic valve replacement Lives: Alone Smoking Status: Current some day smoker Drugs: None - Family History Maternal Family History: Reports: No pertinent history Paternal Family History: Reports: No pertinent history Review of Systems General: Denies: Chills, Fever, Malaise, Subjective, Sweats, Weight loss, - Eyes: Denies: Visual changes - bilaterally, Blurred Vision - bilaterally, Diplopia ENT: Denies: Bilateral ear pain, Rhinorrhea, Sore throat Cardiovascular: Denies: Chest pain, Palpitations, Heart racing, -, - Respiratory: Denies: Dyspnea, Cough, Dyspnea on exertion Hematologic: Reports: Easy bruising Allergy: Denies: Uticaria Physical Exam Vital Signs/Narrative: Vital Signs Temp Pulse Resp BP Pulse Ox 08/01/18 15:02 97.6 F L 89 16 118/59 L 96 Inital Vital Signs reviewed: Yes General: Well developed, Cachectic, No Acute Distress Head: Normocephalic, Atraumatic Eyes: Perrl, EOMI. Negative for: Pale conjunctiva, Scleral icterus ENT: Moist mucous membranes, No rhinorrhea, TM's clear, - - Rhino Rocket noted left side. No evidence of recent or active bleeding Neck: Supple, Nontender, No lymphadenopathy, No JVD Cardiovascular: Regular rate, Regular rhythm, No murmurs Respiratory: No distress, CTA bilaterally, Chest nontender Skin: Normal color, No rash. Negative for: Cyanosis, Jaundice, Rash Neurological: Alert, Oriented x3, Cranial nerves II-XII grossly intact, Normal Strength, Normal Sensation Psychological: Normal affect, Normal Mood Diagnostic/Tx/Re-eval - Medical Decision Making Rhino Rocket was removed. The naris was examined with no evidence of blood noted. No blood noted in the posterior pharynx either. Plan is to discharge with appropriate home-going instructions ED Disposition - Plan for ED Patient: Disposition: Home or Assisted Living Diagnosis: Encounter for removal of nasal packing Instructions: ED Nosebleed Referrals: Care Physician,No Primary [Primary Care Provider] - [facility] [[facility]ICIAN[facility] - As Needed
[2018-08-01 15:34] VITALS: PULSE 89; RESP 16; O2SAT 96
== END 2018-08-01 15:36 | disposition home or self-care (01) ==
PROVIDERS: Emergency Provider Emergency Medicine
DX: Z48.00 Encounter for change or removal of nonsurgical wound dressing (principal); R04.0 Epistaxis; D46.9 Myelodysplastic syndrome, unspecified; R53.1 Weakness; F17.200 Nicotine dependence, unspecified, uncomplicated; Z79.82 Long term (current) use of aspirin; Z79.899 Other long term (current) drug therapy; Z95.2 Presence of prosthetic heart valve
CPT/HCPCS: 99282

== ENCOUNTER 2018-11-12 23:18 | Emergency (ER) | payer OTHER, SELFPAY ==
[2018-11-12 23:19] VITALS: BP 134/60; PULSE 98; RESP 17; TEMP 36.4; O2SAT 95; BMI 22.4
--- NOTE | 2018-11-12 23:36 | ED.DCSUM_ITS ---
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 He states he was anemic and received 3 units of blood transfusion at the [place] in [place] a couple days ago. He denies feeling lightheaded, weak, or any other symptoms of acute anemia at this time. - Past Medical History (1) MDS (myelodysplastic syndrome) Status: Chronic Past Medical History - Allergies and Home Meds Allergies/Adverse Reactions: Allergies No Known Allergies Allergy (Verified 11/12/18 23:19) Primary Care Physician: [facility] [Primary Care Provider] - Surgical History: coronary bypass surgery, - - Aortic valve replacement Smoking Status: Current every day smoker - Family History Maternal Family History: Reports: No pertinent history Paternal Family History: Reports: No pertinent history Review of Systems Musculoskeletal: Reports: Extremity Pain Skin: Reports: Wounds. Denies: Rash Neurological: Denies: Headache, Numbness Physical Exam Vital Signs/Narrative: Vital Signs Temp Pulse Resp BP Pulse Ox 11/12/18 23:19 97.6 F L 98 17 134/60 H 95 Inital Vital Signs reviewed: Yes - Extremity Exam Right Tib fib: - - Mildly tender at laceration mid coulter, 3 cm, curvilinear. No deformity. General: Well nourished, Well developed Head: Normocephalic, Atraumatic Skin: Normal color, Trauma - right coulter laceration, curvilinear, SQ, 3cm, oozing dark nonpulsatile blood, clean-appearing, mildly tender, no sign of infection Neurological: Alert, Oriented x3, Cranial nerves II-XII grossly intact, Normal Strength, Normal Sensation Psychological: Normal affect, Normal Mood Diagnostic/Tx/Re-eval Laboratory Tests 11/12/18 Range/Units 23:43 Hgb 8.8 L (13.0-16.5) g/dL Hct 26.4 L (40-54) % - Medical Decision Making Hemoglobin is 8.8, similar to prior readings. He does not need a repeat blood transfusion for that level especially with no symptoms. Bleeding well controlled after repair, sutures should be out in 10-14 days. We will put him on 5 days of antibiotics to prophylax against infection since he had a delayed presentation and we repaired it. Procedures - Lacerations right lower leg Length: 3 cm Depth: Sub Q Shape: Linear - curved Prep: Sterile Conditions, Chlorhexadine Laceration repair: Irrigated, Lidocaine with epi - 2cc, Local Irrigated (ml): 120 Number of Sutures/[place]: 3 Suture Information: Ethilon, Simple - #2, Horizontal - #1, Mattress, 4-0 Comment: Good hemostasis, good skin edge apposition, repaired loosely. Dressed with bacitracin. ED Disposition - Plan for ED Patient: Disposition: Home or Assisted Living Diagnosis: Laceration of right lower leg Prescriptions: Cephalexin [Keflex] 500 mg PO Q8 #15 cap Prescription Printed [facility] [[facility] - 10-14 Days suture removal
[2018-11-12 23:53] LABS: Hematocrit 26.4 % (40-54); Hemoglobin 8.8 g/dL (13.0-16.5)
[2018-11-13] MEDS: BACITRACIN 15 GM Tube 1 APPLIC TOPICAL (00:10)
[2018-11-13 00:18] VITALS: BP 143/67; PULSE 86; RESP 16; O2SAT 97
== END 2018-11-13 00:33 | disposition home or self-care (01) ==
PROVIDERS: Emergency Provider Emergency Medicine
DX: S81.811A Laceration without foreign body, right lower leg, initial encounter (principal); W07.XXXA Fall from chair, initial encounter; Y93.9 Activity, unspecified; Y92.9 Unspecified place or not applicable; Y99.9 Unspecified external cause status; F17.200 Nicotine dependence, unspecified, uncomplicated; Z79.82 Long term (current) use of aspirin; Z79.02 Long term (current) use of antithrombotics/antiplatelets; Z79.899 Other long term (current) drug therapy; Z95.1 Presence of aortocoronary bypass graft; Z95.2 Presence of prosthetic heart valve
CPT/HCPCS: 12002; 36415; 85014; 85018; 99285

== ENCOUNTER 2018-12-14 16:32 | Observation (INO) | payer OTHER, SELFPAY ==
[2018-12-14] VITALS (16 sets, daily range): BP systolic 129–157; BP diastolic 54–79; PULSE 91–109; RESP 18–34; TEMP 36.4–37.2; O2SAT 93–100; BMI 24.7; BMI 22.8; BMI 22.9
--- NOTE | 2018-12-14 16:52 | EKG12_ITS ---
Test Reason : GENERAL ILLNESS Blood Pressure : / mmHG Vent. Rate : 101 BPM Atrial Rate : 101 BPM P-R Int : 174 ms QRS Dur : 112 ms QT Int : 376 ms P-R-T Axes : 073 023 243 degrees QTc Int : 487 ms Sinus tachycardia Incomplete left bundle branch block Nonspecific T wave abnormality Abnormal ECG Confirmed by MARIANO COPELAND ([id number]), film and video editor WILLOW SANTOS ([id number]) on 12/19/2018 2:02:13 PM Referred By: Jimbo Dean Confirmed By:MARIANO COPELAND
--- NOTE | 2018-12-14 16:54 | ED.VIS.GEN ---
History of Present Illness Chief Complaint: General Illness Informant: Patient Onset: Days Context: Gradual Onset Timing: Continuous Quality: Dyspnea, dyspnea on exertion, orthopnea, pedal edema Location: Cardiovascular Current Severity: Mild Maximum Severity: Moderate Worsened by: Activity Relieved by: Better with rest Associated Symptoms: Previously documented Narrative: Patient is a 5-year-old male with cardiopulmonary disease who presents with dyspnea, dyspnea exertion, orthopnea, pedal edema with serous drainage right leg greater than left and anemia. He requires frequent transfusions because of exposure to agent orange during the winter. He states he had blood work yesterday which revealed he has a low hemoglobin. He was not given a specific number. He is difficult to understand. His speech is slurred because he is edentulous and does not enunciate his words. Prior similar symptoms: Yes Recent Illness/Hospitalization: Yes - Past Medical History (1) History of congestive heart failure Status: Acute (2) Generalized weakness Status: Acute (3) Epistaxis Status: Chronic (4) MDS (myelodysplastic syndrome) Status: Chronic (5) History of depression Status: Acute (6) History of hypertension Status: Acute (7) History of neuropathy Status: Acute Past Medical History - Allergies and Home Meds Allergies/Adverse Reactions: Allergies No Known Allergies Allergy (Verified 11/12/18 23:19) [facility] Phys[facility] [place] [[facility]] - Prior records reviewed: Yes Surgical History: coronary bypass surgery, - - Aortic valve replacement Lives: Alone Smoking Status: Current every day smoker Alcohol: None Drugs: None - Family History Maternal Family History: Reports: No pertinent history Paternal Family History: Reports: No pertinent history Review of Systems General: Reports: Malaise. Denies: Chills, Fever, Sweats Eyes: Denies: Visual changes - bilaterally, Blurred Vision - bilaterally ENT: Denies: Left ear pain, Right ear pain, Rhinorrhea, Sore throat Cardiovascular: Reports: Heart racing. Denies: Chest pain, Palpitations Respiratory: Reports: Dyspnea, Dyspnea on exertion, Orthopnea. Denies: Cough, Sputum Gastrointestinal: Denies: Abdominal pain, Nausea, Vomiting, Diarrhea, Melena, Hematochezia Genitourinary: Denies: Dysuria, Hematuria, Frequency Musculoskeletal: Reports: Swelling - Swelling right and left lower extremity. Denies: Myalgias, Arthralgias, Neck pain, Back pain, Extremity Pain Skin: Reports: Wounds - Avulsion skin anterior right leg with serous drainage. Denies: Rash Neurological: Reports: Weakness, Parasthesia. Denies: Headache Psych: Reports: Depression Hematologic: Denies: Easy bruising, Easy bleeding Allergy: Denies: Uticaria, Swelling of the mouth, Swelling of the tongue Physical Exam Vital Signs/Narrative: Vital Signs Temp Pulse Resp BP Pulse Ox 12/14/18 16:33 98.1 F 105 H 26 H 133/56 H 94 Inital Vital Signs reviewed: Yes General: Well nourished, Well developed, Unkempt, No Acute Distress Head: Normocephalic, Atraumatic Eyes: Perrl, EOMI, Pale conjunctiva. Negative for: Scleral icterus ENT: Moist mucous membranes, No rhinorrhea, TM's clear Cardiovascular: Regular rhythm, No murmurs, Normal S1, Normal S2, Tachycardia Respiratory: Chest nontender, Rales, Diminished Abdomen: Soft, Nontender, Nondistended, Normal bowel sounds Back: Nontender, Normal Inspection Extremities: Nontender, Edema - 2+ pitting Skin: No rash, No Trauma, Pallor. Negative for: Cyanosis, Diaphoresis, Jaundice Neurological: Alert, Oriented x3, Cranial nerves II-XII grossly intact, Normal Strength, Normal Sensation Psychological: Depressed Diagnostic/Tx/Re-eval Impressions Chest X-Ray 12/14/18 17:05 IMPRESSION: Pulmonary vascular prominence without katarzyna edema. Trace pleural effusions versus scarring. Electronically Signed: Víctor Leanna, at 17:34 EDT Tel , Service support , 12/14/18 17:05 Chest PA and Lateral [RAD] Stat Laboratory Results 12/14/18 12/14/18 12/14/18 16:40 16:40 16:40 WBC 2.9 L RBC 2.07 L Hgb 6.0 L Hct 19.8 L MCV 95.7 H MCH 29.0 MCHC 30.3 L RDW Std Deviation 74.3 H RDW Coeff of Kriss 21.9 H Plt Count 97 L MPV 11.2 Immature Gran % (Auto) 2.100 H Neut % (Auto) 74.6 H Lymph % (Auto) 10.6 L [place] % (Auto) 11.3 H Eos % (Auto) 1.4 Baso % (Auto) 0.0 Absolute Neuts (auto) 2.2 Absolute Lymphs (auto) 0.31 L Nucleated RBC % 0 Differential Comment Diff Path Review May foll Platelet Estimate MOD DEC RBC Morphology N CHROM Anisocytosis 2+ Ovalocytes 1+ Sodium 141 Potassium 4.2 Chloride 111 H Carbon Dioxide 25.0 Anion Gap 5 BUN 18 Creatinine 1.12 Estim Creat Clear Calc 59.38 Est GFR (MDRD) Af Amer 83 Est GFR (MDRD) Non-Af 69 BUN/Creatinine Ratio 16.1 Glucose 111 H Calcium 8.6 Blood Type B POSITIVE Antibody Screen NEGATIVE Crossmatch See Detail Hemoglobin is 6. Patient symptomatic. Chest x-ray reveals congestive heart failure suspect high output from his anemia. He received 40 mill grams of Lasix. He received Lasix prior to the initiation of his first unit of blood. Plan is to transfuse 2 units of blood. Duration of infusion 3 to 4 hours/unit. [facility] is been no response regarding transferring patient therefore will contact hospitalist for observation status to treat his high output failure and anemia. - EKG Initial EKG Interpretation: Sinus Tachycardia - Ventricular rate 101. Evidence of incomplete right bundle branch block. TX interval is 174 ms. QS duration 112 ms. QT duration 3 and 76 ms. There are no ossific ST-T wave changes no inferior lateral leads. Will need to compare to prior EKG. - Medical Decision Making Patient is anemic. Suspect hemoglobin between 8 and 6 based on exam. He is symptomatic. He is typed and crossed for 2 units of blood. With history of congestive heart failure bilateral rales pedal edema orthopnea chest x-ray was obtained to confirm presence of congestive heart failure. EKG was obtained as well as appropriate blood work. CBC was repeated since we do not have access to his outpatient labs. Please read lab results section [facility] upon [facility]'s presentation. The front office secretary and nursing staff have attempted to call back after initial call. There is been no response. This patient will require hours to complete transfusion hospitalization paged for admission. ED Disposition - Plan for ED Patient: Disposition: Acute Care [facility] Diagnosis: High output congestive heart failure, Signs and symptoms of anemia, Lymphedema of both lower extremities [facility] [[facility] Care Provider] -
--- NOTE | 2018-12-14 17:05 | RAD_ITS ---
STUDY: X-RAY CHEST REASON FOR EXAM: Male, 68 years old. Dyspnea TECHNIQUE: Frontal view of the chest COMPARISON: X-ray chest July 26, 2018 FINDINGS: Post CABG changes are present. There is mild pulmonary vascular prominence without katarzyna edema. There is no consolidation. Trace pleural effusions versus scarring present. There is no pneumothorax. The heart is normal in size. The visualized osseous structures are within normal limits. RAD/Chest PA and Lateral IMPRESSION: Pulmonary vascular prominence without katarzyna edema. Trace pleural effusions versus scarring. Electronically Signed: Víctor Ram, at 17:34 EDT Tel , Service support ,
[2018-12-14 17:14] LABS: Absolute Lymphocyte Count 0.31 X10^3/uL (0.83-4.51); Absolute Neutrophil Count 2.2 X10^3/uL (2.0-7.7); Eosinophil# 0.04 X10^3/uL; Eosinophils% 1.4 % (0-5); Hematocrit 19.8 % (40-54); Lymphocyte # 0.31 X10^3/ul (4.0); Lymphocyte % 10.6 % (19-41); Mean Corp Hgb Conc 30.3 g/dL (32-36); Mean Corpuscular Volume 95.7 fL (80-94); Mean Platelet Vol. 11.2 fl (6.2-12.0); Monocyte# 0.33 X10^3/uL; Monocyte% 11.3 % (0-10); NRBC Flagged by Analyzer 0 % (0-5); Neutrophil # 2.18 X10^3/uL (2.7-7.7); Neutrophil % 74.6 % (47-70); POSITIVE DIFFERENTIAL YES; POSITIVE MORPHOLOGY YES; Platelet Count 97 K/mm3 (150-450); RBC Distribution Width CV 21.9 % (11.6-14.6); RBC Distribution Width SD 74.3 fl (35.1-43.9); Red Blood Count 2.07 M/mm3 (4.6-6.2); White Blood Count 2.9 K/mm3 (4.4-11.0)
[2018-12-14 17:19] LABS: Anion Gap 5 (5-15); BUN 18 mg/dL (7-18); BUN/Creat Ratio 16.1 RATIO (10-20); Calcium,Total 8.6 mg/dL (8.5-10.1); Chloride 111 mmol/L (98-107); Creatinine, Serum 1.12 mg/dL (0.70-1.30); EST Glomerular Filtration Rate 69 mL/min (>60); Est Glom Filt Rate - Afr Amer 83 mL/min (>60); Estimated Creatinine Clearance 59.38 ml/min; Glucose 111 mg/dL (74-106); Potassium 4.2 mmol/L (3.5-5.1); Sodium Level 141 mmol/L (136-145)
[2018-12-14 17:23] LABS: Differential Indicated SCAN CRITERIA MET
--- NOTE | 2018-12-14 17:47 | NURSING ---
CALLED [facility]. TALKED TO NITISH. HE TOOK INFO AND WILL HAVE THE BED COODINATOR LET US KNOW MORE INFO.
[2018-12-14 17:48] LABS: Anisocytosis 2+; Platelet Estimate MOD DEC (ADEQ); Red Cell Morphology N CHROM NORMAL (NORM C&C)
[2018-12-14 17:49] LABS: Ovalocyte 1+
[2018-12-14] MEDS: Furosemide 40 MG/4 ML Vial IV ×2 (18:04→19:28)
--- NOTE | 2018-12-14 20:31 | ED.RN ---
DR RICCI CALLED, HE WILL BE DELAYED IN TAKING THIS PT DUE TO OTHER OBLIGATIONS REQUIRING HIS ATTENTION IN THE HOSPITAL, DR SLATER WAS INFORMED
--- NOTE | 2018-12-14 20:33 | PCM.HP.STD ---
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 Associated with his for symptoms is orthopnea has been going on for 1 year. At home patient sleeps in a recliner. Also patient complains of shortness of breath Past Medical History Past Medical History (Chronic Problems): Chronic Problems Epistaxis (Chronic) MDS (myelodysplastic syndrome) (Chronic) Allergies No Known Allergies Allergy (Verified 11/12/18 23:19) Home Medications: Ambulatory Orders Medication Instructions Recorded Acetaminophen 325 mg PO Q6H PRN PRN 07/22/18 Aspirin [Adult Aspirin Regimen] 81 mg PO DAILY 07/22/18 Atorvastatin Calcium 20 mg PO QHS 07/22/18 Cholecalciferol (Vitamin D3) 2,000 unit PO DAILY 07/22/18 [Vitamin D3] Gabapentin [Neurontin] 300 mg PO QHS 07/22/18 Metoprolol Tartrate [Lopressor 50 mg PO BID 07/22/18 (beta krystina)] Sertraline HCl 150 mg PO DAILY 07/22/18 traZODone [Desyrel] 25 mg PO QHS 07/22/18 Clopidogrel Bisulfate [Plavix] 75 mg PO DAILY 11/12/18 Epoetin Esteban-Epbx [Retacrit] 40,000 unit IJ UD 12/14/18 Surgical History: coronary bypass surgery, - - Aortic valve replacement Psychiatric History: No pertinent psych hx Lives: Alone Smoking Status: Current every day smoker Alcohol: None Drugs: None - *Family History Maternal History Items: - - Patient does not know Paternal History Items: Cancer - Lung Review of Systems Constitutional: Reports: Fatigue. Denies: Chills, Fever, Weight Change HEENT: Denies: Head Aches, Sinus Congestion, Sinus Drainage Cardiovascular: Reports: Orthopnea. Denies: Chest Pain, Palpitations Respiratory: Reports: Shortness of Breath. Denies: Cough Gastrointestinal: Denies: Abdominal Pain, Nausea, Vomiting Genitourinary: Denies: Dysuria Musculoskeletal: Denies: Joint Pain, Joint Tenderness Skin: Reports: Wounds - Right leg Neurological: Denies: Numbness, Tingling, Focal weakness Psychiatric: Denies: Anxiety, Depression, Homicidal Ideations, Suicidal Ideations Hematologic/ Lymphatic: Denies: Easy Bruising, Easy Bleeding VTE Information - Inpt Only VTE Present on Admission: No VTE Mechan Device Prophylaxis: SCD's, None VTE Pharm Prophylaxis ordered?: No Patient Problems: Active and Suspected Problems High output congestive heart failure (Acute) Signs and symptoms of anemia (Acute) Lymphedema of both lower extremities (Acute) - Physical Exam General: Alert, Oriented x3, Cooperative HEENT: Atraumatic, EOMI, Normocephalic Neck: Supple, Negative Carotid Bruits Lungs: Diminished Cardiovascular: Normal S1, Normal S2, Tachycardic Abdomen: Bowel Sounds Present, Soft, Non Tender Extremities: No edema, Tenderness - Right leg Skin: Ulcer/ Wound - Right leg wound, - Musculoskeletal: No Tenderness to Palpation of Joints or Extremities Neurological: Cranial nerves II-XII grossly intact Psych/Mental Status: Normal Affect, Appropriate Vital Signs Temp Pulse Resp BP Pulse Ox 98.1 F 106 H 22 H 136/64 H 96 12/14/18 19:45 12/14/18 19:45 12/14/18 19:45 12/14/18 19:45 12/14/18 19:45 Oxygen Delivery Method Room Air Weight: 73.7 kg Body Mass Index (BMI) 24.7 Intake and Output for Last 24 Hours 12/12/18 12/13/18 12/14/18 23:59 23:59 23:59 Intake Total 0 / 0 Balance 0 / 0 Laboratory Tests Past 24 Hrs 12/14/18 12/14/18 12/14/18 16:40 16:40 16:40 WBC 2.9 L RBC 2.07 L Hgb 6.0 L Hct 19.8 L MCV 95.7 H MCH 29.0 MCHC 30.3 L RDW Std Deviation 74.3 H RDW Coeff of Kriss 21.9 H Plt Count 97 L MPV 11.2 Immature Gran % (Auto) 2.100 H Neut % (Auto) 74.6 H Lymph % (Auto) 10.6 L [place] % (Auto) 11.3 H Eos % (Auto) 1.4 Baso % (Auto) 0.0 Absolute Neuts (auto) 2.2 Absolute Lymphs (auto) 0.31 L Nucleated RBC % 0 Differential Comment Diff Path Review May foll Platelet Estimate MOD DEC RBC Morphology N CHROM Anisocytosis 2+ Ovalocytes 1+ Sodium 141 Potassium 4.2 Chloride 111 H Carbon Dioxide 25.0 Anion Gap 5 BUN 18 Creatinine 1.12 Estim Creat Clear Calc 59.38 Est GFR (MDRD) Af Amer 83 Est GFR (MDRD) Non-Af 69 BUN/Creatinine Ratio 16.1 Glucose 111 H Calcium 8.6 Blood Type B POSITIVE Antibody Screen NEGATIVE Crossmatch See Detail Assessment/Plan All Active Problems History of congestive heart failure (Acute) History of depression (Acute) History of hypertension (Acute) History of neuropathy (Acute) High output congestive heart failure (Acute) Signs and symptoms of anemia (Acute) Lymphedema of both lower extremities (Acute) Generalized weakness (Acute) The patient is a 68 year old M CAD s/p CABG; HTN; and CHF with symptomatic anemia. Symptomatic anemia Reportedly because of exposure to agent orange patient is always anemic and he receives blood draw as well as erythropoietin. At the emergency department 2 units of blood were ordered and started. We will get an H&H 1 hour posttransfusion. Will transfuse blood if H&H is less than 8 [facility] Lasix 40 mg x 2 doses was given at the emergency department. CHF Patient reports a history of CHF. Chest x-ray showed pulmonary vascular prominence without katarzyna edema. Trace pleural effusion versus scarring however he does not know his ejection fraction. [facility] Received Lasix 40 mg IV x2. We will see how patient does after blood transfusion. PT and OT to work patient and give recommendations. CAD status post CABG Patient is on home aspirin and Plavix in the setting of chronic anemia. Will continue home aspirin and Plavix. Chronic wound Wound care consult Wet-to-dry dressing on right leg wounds onto wound care recommendations. DVT prophylaxis SCD Code Visit OBSV E&M: 18694 Initial observation care L3
[2018-12-14] MEDS: traZODone 50 MG Tablet 25 MG PO (22:58)
[2018-12-14] MEDS: Metoprolol Tartrate 50 MG Tablet PO (22:58)
[2018-12-14] MEDS: Gabapentin 300 MG Capsule PO (22:58)
[2018-12-14] MEDS: Atorvastatin Calcium 20 MG Tablet PO (22:58)
[2018-12-15] VITALS (14 sets, daily range): BP systolic 118–150; BP diastolic 52–70; PULSE 78–87; RESP 18–20; TEMP 36.6–37.2; O2SAT 93–97
[2018-12-15 03:42] LABS: Hematocrit 24.7 % (40-54); Hemoglobin 7.9 g/dL (13.0-16.5)
[2018-12-15] MEDS: Furosemide 40 MG/4 ML Vial IV (04:39)
[2018-12-15] MEDS: Aspirin E.C. 81 MG Tablet PO (08:36)
[2018-12-15] MEDS: Metoprolol Tartrate 50 MG Tablet PO (08:36)
[2018-12-15] MEDS: Clopidogrel Bisulfate 75 MG Tablet PO (08:36)
[2018-12-15] MEDS: Sertraline 50 MG Tablet 150 MG PO (08:37)
--- NOTE | 2018-12-15 09:05 | NURSING ---
wound photo: right coulter
[2018-12-15 09:43] LABS: Hematocrit 30.9 % (40-54); Hemoglobin 10.1 g/dL (13.0-16.5)
[2018-12-15 10:03] LABS: Anion Gap 6 (5-15); BUN 20 mg/dL (7-18); BUN/Creat Ratio 15.6 RATIO (10-20); Calcium,Total 8.7 mg/dL (8.5-10.1); Chloride 108 mmol/L (98-107); Creatinine, Serum 1.28 mg/dL (0.70-1.30); EST Glomerular Filtration Rate 59 mL/min (>60); Est Glom Filt Rate - Afr Amer 71 mL/min (>60); Estimated Creatinine Clearance 52.94 ml/min; Glucose 104 mg/dL (74-106); Sodium Level 141 mmol/L (136-145)
--- NOTE | 2018-12-15 11:35 | CASEMGMT ---
Addendum entered by Aisha Castillo 12/15/18 15:31: Pt D/C summary/instructions faxed to [facility] at this time. Call to Fay at [facility] to update on pt discharge at this time, voices understanding. Amando CARDENAS CM Original Note: Updated clinicals faxed to [facility] at this time. Amando CARDENAS CM
[2018-12-15 12:03] LABS: Pathologist Review Reviewed
--- NOTE | 2018-12-15 12:07 | DCINST_ITS ---
- Discharge Diagnoses Current Active Problems: Current Active and Chronic Problems High output congestive heart failure (Acute) Signs and symptoms of anemia (Acute) Lymphedema of both lower extremities (Acute) You will use the following diet at home:: Cardiac Your food should be the consistency of: Regular Your liquids should be the consistency of: Regular/Thin Discharge Activity: Return to Normal Activity Allergies/Adverse Reactions: Allergies No Known Allergies Allergy (Verified 11/12/18 23:19) Medications to take at Discharge Acetaminophen 325 mg PO Q6H PRN PRN 07/22/18 Aspirin [Adult Aspirin Regimen] 81 mg PO DAILY 07/22/18 Atorvastatin Calcium 20 mg PO QHS 07/22/18 Cholecalciferol (Vitamin D3) [Vitamin D3] 2,000 unit PO DAILY 07/22/18 Gabapentin [Neurontin] 300 mg PO QHS 07/22/18 Metoprolol Tartrate [Lopressor (beta krystina)] 50 mg PO BID 07/22/18 Sertraline HCl 150 mg PO DAILY 07/22/18 traZODone [Desyrel] 25 mg PO QHS 07/22/18 Clopidogrel Bisulfate [Plavix] 75 mg PO DAILY 11/12/18 Epoetin Esteban-Epbx [Retacrit] 40,000 unit IJ UD 12/14/18 [facility] Physician: [facility] [Primary [facility] Provider] - Please follow up with your Primary Care Physician in: 1-2 weeks Test Results: Test results from this visit will be discussed in further detail at your follow- up appointment, if applicable. Please Follow Up With: [facility] When: 1-2 weeks Proposed Discharge Date: 12/15/18
--- NOTE | 2018-12-15 13:33 | PCM.DC.SUM ---
<Fredy Ordonez - Last Filed: 12/15/18 13:33> Discharge Date and Diagnosis - Problem List Patient Problems: Active and Suspected Problems High output congestive heart failure (Acute) Signs and symptoms of anemia (Acute) Lymphedema of both lower extremities (Acute) Date of Admission: 12/14/18 Date of Discharge: 12/15/18 - Primary Discharge Diagnosis Active and Suspected Problems Acute on chronic anemia 2/2 MDS Hx CHF, unclear type CAD with prior CABG Hx CVA Hx chronic leg wounds. Hx AV repair T2DM Depression - Secondary Discharge Diagnosis Chronic Problems Epistaxis (Chronic) MDS (myelodysplastic syndrome) (Chronic) Hospital Course and Treatment Imaging Results: RAD/Chest PA and Lateral IMPRESSION: Pulmonary vascular prominence without katarzyna edema. Trace pleural effusions versus scarring. Consultations 12/14/18 22:09 Consult: Onc/Wound/scrap piler Routine Comment: Reason for Consult:: R leg wounds Operations: None Procedures: Blood transfusion Summary of Care Provided: Hospital Course: The patient is a 68 year old M with pmhx as above most notably for MDS who frequently received blood transfusion with the [facility] ila carcamo, who reported to the ER after being sent for abnormal labs. He went to have routine blood tests and was found to have marked anemia and was told by his temperature logging operator to go to the ER. In the ER his Hgb was 6.0. He was admitted to the PCU and transfused with 3 units PRBC. By the following morning he reported that he felt markedly improved and back to his normal self. His Hgb improved to 10.1. He was discharged home in stable condition. He was advised to [facility] Supervisor in 1-2 weeks. This patient was seen by Fredy Ordonez PA-C under the supervision of Dr. Diehl. [] Patient Problems: Active and Suspected Problems High output congestive heart failure (Acute) Signs and symptoms of anemia (Acute) Lymphedema of both lower extremities (Acute) - Physical Exam General: Alert, Oriented x3, Cooperative HEENT: Atraumatic, PERRLA, EOMI, Normocephalic Neck: Supple, No JVD, Negative Carotid Bruits Lungs: Clear to auscultation, Normal air movement Cardiovascular: Regular rate, No murmurs Abdomen: Bowel Sounds Present, Soft, Non Tender Extremities: No edema, Capillary Refill Less than 3 Seconds Skin: No rashes, No breakdown Musculoskeletal: No Tenderness to Palpation of Joints or Extremities Neurological: Cranial nerves II-XII grossly intact Psych/Mental Status: Normal Affect, Appropriate, Alert and oriented to time, place, person, mood and affect Vital Signs Temp Pulse Resp BP Pulse Ox 97.8 F 78 18 130/64 H 94 12/15/18 08:19 12/15/18 11:00 12/15/18 08:19 12/15/18 08:36 12/15/18 08:19 Oxygen Flow Rate (L/min) 1 Oxygen Delivery Method Room Air Weight: 153 lb 10.595 oz Body Mass Index (BMI) 22.8 Intake and Output for Last 24 Hours 12/13/18 12/14/18 12/15/18 23:59 23:59 23:59 Intake Total 502 / 502 104.5 / 104.5 Output Total 600 / 600 855 / 855 Balance -98 / -98 -750.5 / -750.5 Laboratory Tests Past 24 Hrs 12/14/18 12/14/18 12/14/18 16:40 16:40 16:40 WBC 2.9 L RBC 2.07 L Hgb 6.0 L Hct 19.8 L MCV 95.7 H MCH 29.0 MCHC 30.3 L RDW Std Deviation 74.3 H RDW Coeff of Kriss 21.9 H Plt Count 97 L MPV 11.2 Immature Gran % (Auto) 2.100 H Neut % (Auto) 74.6 H Lymph % (Auto) 10.6 L [place] % (Auto) 11.3 H Eos % (Auto) 1.4 Baso % (Auto) 0.0 Absolute Neuts (auto) 2.2 Absolute Lymphs (auto) 0.31 L Nucleated RBC % 0 Differential Comment Diff Path Review Reviewed Platelet Estimate MOD DEC RBC Morphology N CHROM Anisocytosis 2+ Ovalocytes 1+ Sodium 141 Potassium 4.2 Chloride 111 H Carbon Dioxide 25.0 Anion Gap 5 BUN 18 Creatinine 1.12 Estim Creat Clear Calc 59.38 Est GFR (MDRD) Af Amer 83 Est GFR (MDRD) Non-Af 69 BUN/Creatinine Ratio 16.1 Glucose 111 H Calcium 8.6 Blood Type B POSITIVE Antibody Screen NEGATIVE Crossmatch See Detail 12/14/18 12/15/18 12/15/18 16:40 03:34 09:36 WBC RBC Hgb 7.9 L 10.1 L Hct 24.7 L 30.9 L MCV MCH MCHC RDW Std Deviation RDW Coeff of Kriss Plt Count MPV Immature Gran % (Auto) Neut % (Auto) Lymph % (Auto) [place] % (Auto) Eos % (Auto) Baso % (Auto) Absolute Neuts (auto) Absolute Lymphs (auto) Nucleated RBC % Differential Comment Diff Path Review Platelet Estimate RBC Morphology Anisocytosis Ovalocytes Sodium Potassium Chloride Carbon Dioxide Anion Gap BUN Creatinine Estim Creat Clear Calc Est GFR (MDRD) Af Amer Est GFR (MDRD) Non-Af BUN/Creatinine Ratio Glucose Calcium Blood Type Antibody Screen Crossmatch See Detail 12/15/18 09:36 WBC RBC Hgb Hct MCV MCH MCHC RDW Std Deviation RDW Coeff of Kriss Plt Count MPV Immature Gran % (Auto) Neut % (Auto) Lymph % (Auto) [place] % (Auto) Eos % (Auto) Baso % (Auto) Absolute Neuts (auto) Absolute Lymphs (auto) Nucleated RBC % Differential Comment Diff Path Review Platelet Estimate RBC Morphology Anisocytosis Ovalocytes Sodium 141 Potassium 4.0 Chloride 108 H Carbon Dioxide 27.0 Anion Gap 6 BUN 20 H Creatinine 1.28 Estim Creat Clear Calc 52.94 Est GFR (MDRD) Af Amer 71 Est GFR (MDRD) Non-Af 59 L BUN/Creatinine Ratio 15.6 Glucose 104 Calcium 8.7 Blood Type Antibody Screen Crossmatch Discharge Diet: Low fat/ Low Cholesterol, 2000 mg Sodium Diet Discharge Activity: Return to Normal Activity Home Medications: Medications to take at Discharge Acetaminophen 325 mg PO Q6H PRN PRN 07/22/18 Aspirin [Adult Aspirin Regimen] 81 mg PO DAILY 07/22/18 Atorvastatin Calcium 20 mg PO QHS 07/22/18 Cholecalciferol (Vitamin D3) [Vitamin D3] 2,000 unit PO DAILY 07/22/18 Gabapentin [Neurontin] 300 mg PO QHS 07/22/18 Metoprolol Tartrate [Lopressor (beta krysitna)] 50 mg PO BID 07/22/18 Sertraline HCl 150 mg PO DAILY 07/22/18 traZODone [Desyrel] 25 mg PO QHS 07/22/18 Clopidogrel Bisulfate [Plavix] 75 mg PO DAILY 07/20/19 Epoetin Esteban-Epbx [Retacrit] 40,000 unit IJ UD 12/14/18 [facility] [[facility]] - Please follow up with your Primary Care Physician in: 1-2 weeks Please Follow Up With: [facility] When: 1-2 weeks Disposition: Home Minutes spent on discharge:: 35 Medical Necessity - Tobacco Use Smoking Status: Light Smoker (<10/day) Meaningful Use Info Meaningful Use Diagnoses (Choose all that apply): None applicable <Bill Diehl - Last Filed: 12/15/18 14:13> Discharge Date and Diagnosis - Primary Discharge Diagnosis Active and Suspected Problems High output congestive heart failure (Acute) Signs and symptoms of anemia (Acute) Lymphedema of both lower extremities (Acute) - Secondary Discharge Diagnosis Chronic Problems Epistaxis (Chronic) MDS (myelodysplastic syndrome) (Chronic) Hospital Course and Treatment Consultations 12/14/18 22:09 Consult: Onc/Wound/scrap piler Routine Comment: Reason for Consult:: R leg wounds Summary of Care Provided: The patient is a 68 year old M [] - Physical Exam Vital Signs Temp Pulse Resp BP Pulse Ox 97.8 F 81 18 132/57 H 94 12/15/18 12:30 12/15/18 12:30 12/15/18 12:30 12/15/18 12:30 12/15/18 12:30 Oxygen Flow Rate (L/min) 1 Oxygen Delivery Method Room Air Weight: 153 lb 10.595 oz Body Mass Index (BMI) 22.8 Intake and Output for Last 24 Hours 12/13/18 12/14/18 12/15/18 23:59 23:59 23:59 Intake Total 502 / 502 1092.5 / 1092.5 Output Total 600 / 600 1630 / 1630 Balance -98 / -98 -537.5 / -537.5 Laboratory Tests Past 24 Hrs 12/14/18 12/14/18 12/14/18 16:40 16:40 16:40 WBC 2.9 L RBC 2.07 L Hgb 6.0 L Hct 19.8 L MCV 95.7 H MCH 29.0 MCHC 30.3 L RDW Std Deviation 74.3 H RDW Coeff of Kriss 21.9 H Plt Count 97 L MPV 11.2 Immature Gran % (Auto) 2.100 H Neut % (Auto) 74.6 H Lymph % (Auto) 10.6 L [place] % (Auto) 11.3 H Eos % (Auto) 1.4 Baso % (Auto) 0.0 Absolute Neuts (auto) 2.2 Absolute Lymphs (auto) 0.31 L Nucleated RBC % 0 Differential Comment Diff Path Review Reviewed Platelet Estimate MOD DEC RBC Morphology N CHROM Anisocytosis 2+ Ovalocytes 1+ Sodium 141 Potassium 4.2 Chloride 111 H Carbon Dioxide 25.0 Anion Gap 5 BUN 18 Creatinine 1.12 Estim Creat Clear Calc 59.38 Est GFR (MDRD) Af Amer 83 Est GFR (MDRD) Non-Af 69 BUN/Creatinine Ratio 16.1 Glucose 111 H Calcium 8.6 Blood Type B POSITIVE Antibody Screen NEGATIVE Crossmatch See Detail 12/14/18 12/15/18 12/15/18 16:40 03:34 09:36 WBC RBC Hgb 7.9 L 10.1 L Hct 24.7 L 30.9 L MCV MCH MCHC RDW Std Deviation RDW Coeff of Kriss Plt Count MPV Immature Gran % (Auto) Neut % (Auto) Lymph % (Auto) [place] % (Auto) Eos % (Auto) Baso % (Auto) Absolute Neuts (auto) Absolute Lymphs (auto) Nucleated RBC % Differential Comment Diff Path Review Platelet Estimate RBC Morphology Anisocytosis Ovalocytes Sodium Potassium Chloride Carbon Dioxide Anion Gap BUN Creatinine Estim Creat Clear Calc Est GFR (MDRD) Af Amer Est GFR (MDRD) Non-Af BUN/Creatinine Ratio Glucose Calcium Blood Type Antibody Screen Crossmatch See Detail 12/15/18 09:36 WBC RBC Hgb Hct MCV MCH MCHC RDW Std Deviation RDW Coeff of Kriss Plt Count MPV Immature Gran % (Auto) Neut % (Auto) Lymph % (Auto) [place] % (Auto) Eos % (Auto) Baso % (Auto) Absolute Neuts (auto) Absolute Lymphs (auto) Nucleated RBC % Differential Comment Diff Path Review Platelet Estimate RBC Morphology Anisocytosis Ovalocytes Sodium 141 Potassium 4.0 Chloride 108 H Carbon Dioxide 27.0 Anion Gap 6 BUN 20 H Creatinine 1.28 Estim Creat Clear Calc 52.94 Est GFR (MDRD) Af Amer 71 Est GFR (MDRD) Non-Af 59 L BUN/Creatinine Ratio 15.6 Glucose 104 Calcium 8.7 Blood Type Antibody Screen Crossmatch Code Visit Addendum: Dr. Diehl I personally examined the patient and reviewed the chart. I agree with the above. 68-year-old male with a history of myelodysplastic syndrome who sees oncologist/temperature logging operator at the [facility], presents after being told that his hemoglobin is low. He presented to the ER with a hemoglobin of 6 and received 3 units of packed red blood cells. On the day of discharge his hemoglobin returned to 10. He states that this is a very common occurrence with him and usually he is able to get transfused at the [facility] however this time he waited a little bit too long and he normally does and need to be admitted for blood. Denies any dark stools and therefore can we can continue his aspirin and Plavix. He had a previous stool guaiac in July which was negative. OBSV E&M: 13219 Observation care discharge
== END 2018-12-15 12:08 | disposition home or self-care (01) ==
LOC: ED 20:10 → PCU 21:00
PROVIDERS: Admitting Provider Hospitalist; Emergency Provider Emergency Medicine; Referring Provider Hospitalist; Visit Provider Family Medicine
DX: I11.0 Hypertensive heart disease with heart failure (principal); I50.9 Heart failure, unspecified; D64.9 Anemia, unspecified; F32.9 Major depressive disorder, single episode, unspecified; D46.9 Myelodysplastic syndrome, unspecified; G62.9 Polyneuropathy, unspecified; I25.10 Atherosclerotic heart disease of native coronary artery without angina pectoris; Z95.1 Presence of aortocoronary bypass graft; F17.210 Nicotine dependence, cigarettes, uncomplicated; Z86.73 Personal history of transient ischemic attack (TIA), and cerebral infarction without residual deficits; Z79.899 Other long term (current) drug therapy; Z79.82 Long term (current) use of aspirin; Z95.2 Presence of prosthetic heart valve
CPT/HCPCS: 36415; 71046; 80048; 85014; 85018; 85025; 86850; 86900; 86901; 86920; 86922; 93005; 96374; 96375; 97162; 97166; 99218; 99285; 99406; J7030; J7040; P9016; A4216; G0378; J1940

== ENCOUNTER 2018-12-28 10:52 | Emergency (ER) | payer OTHER, SELFPAY ==
[2018-12-14 21:34] VITALS: BMI 22.8
[2018-12-28 10:53] VITALS: BP 138/67; PULSE 102; RESP 14; TEMP 37; O2SAT 89; BMI 22.8
--- NOTE | 2018-12-28 11:50 | NURSING ---
A FRIEND, DEVAUGHN, CALLED. HIS WILL COME GET PATIENT WHEN DISCHARGED. [phone]
[2018-12-28 11:53] VITALS: BP 160/79; PULSE 105; RESP 25; O2SAT 92
[2018-12-28 12:01] LABS: Absolute Neutrophil Count 4.1 X10^3/uL (2.0-7.7); Basophil# 0.01 X10^3/uL; Basophil% 0.2 % (0-1); Hematocrit 25.6 % (40-54); Hemoglobin 8.3 g/dL (13.0-16.5); Lymphocyte % 7.7 % (19-41); Mean Corp Hgb Conc 32.4 g/dL (32-36); Mean Corpuscular Volume 89.5 fL (80-94); Mean Platelet Vol. 9.3 fl (6.2-12.0); Monocyte# 0.59 X10^3/uL; Monocyte% 11.4 % (0-10); NRBC Flagged by Analyzer 0 % (0-5); Neutrophil # 4.09 X10^3/uL (2.7-7.7); Neutrophil % 78.8 % (47-70); POSITIVE DIFFERENTIAL YES; Platelet Count 117 K/mm3 (150-450); RBC Distribution Width CV 18.9 % (11.6-14.6); RBC Distribution Width SD 61.2 fl (35.1-43.9); Red Blood Count 2.86 M/mm3 (4.6-6.2); White Blood Count 5.2 K/mm3 (4.4-11.0)
[2018-12-28 12:03] LABS: Differential Indicated SCAN CRITERIA MET
[2018-12-28 12:07] LABS: International Normalized Ratio 1.4; Prothrombin Time (Protime)PT. 17.4 SECONDS (11.7-14.9)
[2018-12-28 12:08] LABS: Partial Thromboplast Time 48.9 Seconds (24.1-36.2)
[2018-12-28 12:11] LABS: Anion Gap 6 (5-15); BUN 24 mg/dL (7-18); BUN/Creat Ratio 18.3 RATIO (10-20); Calcium,Total 8.9 mg/dL (8.5-10.1); Chloride 106 mmol/L (98-107); Creatinine, Serum 1.31 mg/dL (0.70-1.30); EST Glomerular Filtration Rate 57 mL/min (>60); Est Glom Filt Rate - Afr Amer 69 mL/min (>60); Estimated Creatinine Clearance 52.03 ml/min; Glucose 143 mg/dL (74-106); Potassium 4.1 mmol/L (3.5-5.1); Sodium Level 140 mmol/L (136-145)
--- NOTE | 2018-12-28 13:13 | ED.DCSUM_ITS ---
History of Present Illness Chief Complaint: Nosebleed Narrative: Patient is in for evaluation secondary to a nosebleed. Patient reports that since about 3:00 this morning he has been dealing with a right nostril nosebleed. He reports that it has not stopped, he really has been holding much pressure. Patient states that he is on Plavix. He denies any chest pain shortness of breath syncope choking on blood. Denies any injuries. Bleeding is mild to moderate and continuous. Past Medical History - Allergies and Home Meds Allergies/Adverse Reactions: Allergies No Known Allergies Allergy (Verified 12/28/18 10:53) Primary Care Physician: [place] [place] [Primary Care Provider] - Past Medical History: - - CHF, hypertension, coronary artery disease Surgical History: coronary bypass surgery, - - Aortic valve replacement Smoking Status: Current every day smoker - Family History Maternal Family History: Reports: - - Patient does not know Paternal Family History: Reports: Cancer - Lung Review of Systems All systems negative except as indicated ENT: Reports: - - Nosebleed Cardiovascular: Denies: Chest pain Respiratory: Denies: Dyspnea Physical Exam Vital Signs/Narrative: Vital Signs Temp Pulse Resp BP Pulse Ox 12/28/18 11:53 105 H 25 H 160/79 H 92 12/28/18 10:53 98.6 F 102 H 14 138/67 H 89 General: - - Elderly somewhat cachectic male sitting in bed actively bleeding from his right nostril Head: Normocephalic, Atraumatic Eyes: Perrl, EOMI ENT: Moist mucous membranes, - - Active bleeding coming from the right nostril, visualization seems to make this apparently from a anterior source Neck: Supple Cardiovascular: Regular rate, Regular rhythm Respiratory: No distress Abdomen: Soft Extremities: Nontender Skin: Normal color Neurological: Alert, Oriented x3 Psychological: Normal affect Diagnostic/Tx/Re-eval - Medical Decision Making Patient presented secondary to a nosebleed. Patient's nose was packed as noted in the procedure note. He was observed in the emergency department for over 2 hours did not have any evidence of rebleeding. Laboratory work was obtained, patient has anemia with a hemoglobin of 8.5, a most recent hemoglobin was 10, but trending this back with the patient really seems to have a baseline hemoglobin in the eights. Patient has not had any rebleeding episodes. He was ambulated in the emergency department and tolerated this well with a walker. At this point I do not believe that he requires inpatient management. He will be given a referral to ear nose and throat for follow-up. Patient will be sent home with Keflex. He understands signs and symptoms which to return. Procedures Procedure(s): Epistaxis management: Patient had right-sided epistaxis. Patient was placed in an upright position, and was asked to blow the clots out of his right nostril. Right nostril was then thoroughly sprayed with Afrin spray and pressure was held for about 5 minutes by myself. A 5.5 cm Rhino Rocket was then placed with about 10 cc of air placed into the balloon. Patient tolerated this well. There was cessation of nasal bleeding. ED Disposition - Plan for ED Patient: Disposition: Home or Assisted Living Diagnosis: Epistaxis, Chronic anemia Instructions: Nosebleed Prescriptions: Cephalexin [Keflex] 500 mg PO Q12 #14 cap Prescription Printed Referrals: Luke Irizarry MD [STAFF PHYSICIAN] - 3-5 Days
[2018-12-28 13:17] VITALS: RESP 20
[2018-12-28 13:29] VITALS: BP 159/69; PULSE 99; RESP 16; O2SAT 93
--- NOTE | 2018-12-28 13:30 | ED.RN ---
REVIEWED D/C INSTRUCTIONS, FOLLOW UP CARE, PRESCRIPTION, AND S/S THAT WOULD WARRANT A RETURN TO THE ED WITH PT. PT VERBALIZED AN UNDERSTANDING AND DENIES FURTHER QUESTIONS FOR THIS RN. PT SKIN P/W/D, RESP EVEN AND UNLABORED, PT A&O X 3, NO DISTRESS NOTED. PT ASSISTED OUT OF ED IN WHEELCHAIR.
== END 2018-12-28 13:30 | disposition home or self-care (01) ==
PROVIDERS: Emergency Provider Emergency Medicine
DX: R04.0 Epistaxis (principal); D64.9 Anemia, unspecified; I11.0 Hypertensive heart disease with heart failure; I50.9 Heart failure, unspecified; I25.10 Atherosclerotic heart disease of native coronary artery without angina pectoris; F17.200 Nicotine dependence, unspecified, uncomplicated; Z79.82 Long term (current) use of aspirin; Z79.02 Long term (current) use of antithrombotics/antiplatelets; Z79.899 Other long term (current) drug therapy; Z95.2 Presence of prosthetic heart valve; Z95.1 Presence of aortocoronary bypass graft
CPT/HCPCS: 30901; 80048; 85025; 85610; 85730; 99285; A4216

== ENCOUNTER 2019-01-15 19:51 | Emergency (ER) | payer OTHER, MEDICARE, SELFPAY ==
[2019-01-15 19:52] VITALS: BP 145/63; PULSE 91; RESP 16; TEMP 36.6; O2SAT 99; BMI 23.6
--- NOTE | 2019-01-15 20:13 | ED.DCSUM_ITS ---
History of Present Illness Chief Complaint: Wound Check Detail of Chief Complaint: Nasal packing removal Informant: Patient Narrative: Patient was seen in the ER on December 27 for a right-sided nosebleed. Rhino Rocket was placed. He been given follow-up information with Dr. Irizarry, but did not follow-up. He is presents today for packing removal. He states he has had no problem with the packing. He said no further bleeding. He was placed on Keflex for the first several days. Past Medical History - Allergies and Home Meds Allergies/Adverse Reactions: Allergies No Known Allergies Allergy (Verified 01/15/19 19:54) Primary Care Physician: Luke Irizarry MD [STAFF PHYSICIAN] - As Needed [place] [Primary Care Provider] - Prior records reviewed: Yes Past Medical History: - - Reviewed Surgical History: coronary bypass surgery, - - Aortic valve replacement Smoking Status: Current every day smoker - Family History Maternal Family History: Reports: - - Patient does not know Paternal Family History: Reports: Cancer - Lung Review of Systems General: Denies: Chills, Fever Eyes: Denies: Visual changes - bilaterally ENT: Denies: Bilateral ear pain Cardiovascular: Denies: Chest pain Respiratory: Denies: Dyspnea Gastrointestinal: Denies: Abdominal pain Musculoskeletal: Denies: Extremity Pain Skin: Denies: Rash Neurological: Denies: Headache Physical Exam Vital Signs/Narrative: Vital Signs Temp Pulse Resp BP Pulse Ox 01/15/19 19:52 98 F 91 16 145/63 H 99 Inital Vital Signs reviewed: Yes General: Well nourished Eyes: EOMI ENT: Moist mucous membranes, - - Rhino Rocket in place to right nostril. Neck: Supple Cardiovascular: Regular rate Respiratory: No distress Abdomen: Soft Skin: Normal color Psychological: Normal affect Diagnostic/Tx/Re-eval - Medical Decision Making Rhino Rocket was removed from the right nares without difficulty. Patient does have significant green mucousy discharge with the packing. In light of this and that it has been in place for 2+ weeks we will cover him with Augmentin. First doses given here. ED Disposition - Plan for ED Patient: Disposition: Home or Assisted Living Diagnosis: Encounter for removal of nasal packing Prescriptions: Amox/Clavulanate Tablet [Augmentin Tablet] 875 mg PO Q12H #10 tab Prescription Printed [facility]errals: [facility] [[facility]] - Luke Irizarry MD [STAFF PHYSICIAN] - As Needed
[2019-01-15] MEDS: Amox/Clavulanate 875 MG Tablet PO (20:18)
[2019-01-15 20:20] VITALS: RESP 17
== END 2019-01-15 20:26 | disposition home or self-care (01) ==
LOC: ED 20:26
PROVIDERS: Emergency Provider Emergency Medicine
DX: Z48.00 Encounter for change or removal of nonsurgical wound dressing (principal); F17.200 Nicotine dependence, unspecified, uncomplicated; Z79.02 Long term (current) use of antithrombotics/antiplatelets; Z79.82 Long term (current) use of aspirin; Z79.899 Other long term (current) drug therapy; Z95.2 Presence of prosthetic heart valve; Z95.1 Presence of aortocoronary bypass graft
CPT/HCPCS: 99283

== ENCOUNTER 2019-02-10 20:28 | Inpatient (IN) | payer OTHER, MEDICARE, SELFPAY ==
[2019-02-10] VITALS (7 sets, daily range): BP systolic 136–152; BP diastolic 66–97; PULSE 96–105; RESP 16–20; TEMP 36.3–36.8; O2SAT 88–97; BMI 23.6
--- NOTE | 2019-02-10 20:47 | CT_ITS ---
STUDY: CT BRAIN WITHOUT CONTRAST REASON FOR EXAM: Male, 68 years old. Fall RADIATION DOSAGE (If Supplied By Facility): DLP = ( 798.92 ) mGycm TECHNIQUE: Transaxial CT imaging of the brain was performed without administration of intravenous contrast material. Individualized dose optimization techniques were used for this CT. COMPARISON: None. FINDINGS: There is no acute bleed or infarct. There are chronic ischemic and atrophic changes. Old appearing pontine infarcts noted. The ventricles are normal in configuration. There is no hydrocephalus. The visualized paranasal sinuses are clear. The mastoid air cells are well aerated. There is no skull fracture. CT/Brain/Head without Contrast IMPRESSION: No acute intracranial abnormality. Chronic ischemic and atrophic changes. Electronically Signed: Víctor Ram, at 22:05 EDT Tel , Service support ,
--- NOTE | 2019-02-10 20:47 | CT_ITS ---
STUDY: CT CERVICAL SPINE WITHOUT CONTRAST REASON FOR EXAM: Male, 68 years old. Injury from falling. TECHNIQUE: High resolution transaxial imaging was performed without contrast material. Sagittal and coronal images were reconstructed. Individualized dose optimization techniques were used for this CT. COMPARISON: None FINDINGS: No fracture or dislocation of the cervical spine. Alignment anatomic. Multilevel degenerative changes but no evidence of high-grade spinal canal narrowing. Degenerative changes and ligamentum flavum calcifications cause high-grade left foraminal narrowing at C3-4 and C4-5. Less prominent narrowing at other levels. No acute findings in the paraspinal soft tissues. No prevertebral hematoma.[] Subpleural emphysema lung apices. Calcific atherosclerosis. 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 CT/Spine Cervical without Contras IMPRESSION: No fracture or dislocation of the cervical spine. Electronically Signed: Holden Lay, at 22:32 EDT Tel , Service support ,
--- NOTE | 2019-02-10 20:49 | ED.DCSUM_ITS ---
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 Onset: Today Context: Sudden Onset Narrative: Patient is a 68-year-old male with history of myelodysplastic syndrome, anemia requiring recurrent transfusions (last infusion was about 2 weeks ago) and congestive heart failure presenting after mechanical fall. Patient states he was getting out of his van when he fell backwards and struck his head. He also caught his left arm on something cutting it. Patient denies any loss of consciousness. He states he did not faint and remembers the fall. He did hit his head. EMS was called and he was transferred to the emergency room. Patient is not sure if he is on any anticoagulation. Chart review shows that he is on Plavix. In addition patient is been dealing with frequent nosebleeds. He has a clot in his nose has been present for the past few days. Patient denies any other complaints at this time. He states before the fall he was in his normal state of health. Past Medical History - Allergies and Home Meds Allergies/Adverse Reactions: Allergies No Known Allergies Allergy (Verified 01/15/19 19:54) Past Medical History: - - CHF, myelodysplastic syndrome, epistaxis Surgical History: coronary bypass surgery, - - Aortic valve replacement Smoking Status: Current every day smoker - Family History Maternal Family History: Reports: - - Patient does not know Paternal Family History: Reports: Cancer - Lung Review of Systems All systems negative except as indicated Eyes: Reports: Blurred Vision - bilaterally ENT: Reports: - - Epistaxis, chronic Skin: Reports: Abrasions - Left elbow Physical Exam Vital Signs/Narrative: Vital Signs Temp Pulse Resp BP Pulse Ox 02/10/19 20:36 91 02/10/19 20:29 97.4 F L 105 H 18 141/71 H 91 Inital Vital Signs reviewed: Yes General: Well nourished, Well developed, No Acute Distress Head: Normocephalic, - - Subcentimeter superficial abrasion right forehead Eyes: Perrl, EOMI ENT: Moist mucous membranes, - - Large blood clot in the right nares, no active bleeding noted Neck: Supple, Nontender, - - No midline tenderness, full range of motion Cardiovascular: Regular rate, Regular rhythm, No murmurs Respiratory: No distress, CTA bilaterally, Chest nontender Abdomen: Soft, Nontender, Nondistended, Normal bowel sounds Back: Nontender, Normal Inspection Extremities: Nontender, No edema Skin: No rash, Pallor, - - 1 cm skin tear left distal humerus, 1.5 cm skin tear left proximal forearm over radius Neurological: Alert, Oriented x3, Cranial nerves II-XII grossly intact, Normal Strength, Normal Sensation Psychological: Normal affect, Normal Mood Diagnostic/Tx/Re-eval Chest X-Ray - ED: 1 View, Read by Radiologist, No Acute Disease Clinical Impression(s) from Imaging Studies Brain CT 02/10/19 20:47 IMPRESSION: No acute intracranial abnormality. Chronic ischemic and atrophic changes. Electronically Signed: Víctor Ram, at 22:05 EDT Tel , Service support , Cervical Spine CT 02/10/19 20:47 IMPRESSION: No fracture or dislocation of the cervical spine. Electronically Signed: Holden Lay, at 22:32 EDT Tel , Service support , Chest X-Ray 02/10/19 22:20 IMPRESSION: Mild pulmonary vascular congestion. Electronically Signed: Jose Pascual, at 22:42 EDT Tel , Service support , Laboratory Data 02/10/19 02/10/19 02/10/19 20:55 20:55 20:55 WBC 4.4 RBC 2.31 L Hgb 6.5 L Hct 22.0 L MCV 95.2 H MCH 28.1 MCHC 29.5 L RDW Std Deviation 77.4 H RDW Coeff of Kriss 22.5 H Plt Count 100 L MPV 9.6 Immature Gran % (Auto) 4.600 H Neut % (Auto) 76.5 H Lymph % (Auto) 7.5 L Caroline % (Auto) 11.0 H Eos % (Auto) 0.2 Baso % (Auto) 0.2 Absolute Neuts (auto) 3.4 Absolute Lymphs (auto) 0.33 L Nucleated RBC % 0.9 Differential Comment SCANNED Diff Path Review May foll Anisocytosis 1+ Ovalocytes RARE PT 17.3 H INR 1.4 APTT 45.3 H Sodium 143 Potassium 4.0 Chloride 110 H Carbon Dioxide 26.0 Anion Gap 7 BUN 17 Creatinine 1.10 Estim Creat Clear Calc 62.49 Est GFR (MDRD) Af Amer 85 Est GFR (MDRD) Non-Af 70 BUN/Creatinine Ratio 15.5 Glucose 115 H Calcium 8.4 L Blood Type Antibody Screen Crossmatch 02/10/19 21:26 WBC RBC Hgb Hct MCV MCH MCHC RDW Std Deviation RDW Coeff of Kriss Plt Count MPV Immature Gran % (Auto) Neut % (Auto) Lymph % (Auto) Caroline % (Auto) Eos % (Auto) Baso % (Auto) Absolute Neuts (auto) Absolute Lymphs (auto) Nucleated RBC % Differential Comment Diff Path Review Anisocytosis Ovalocytes PT INR APTT Sodium Potassium Chloride Carbon Dioxide Anion Gap BUN Creatinine Estim Creat Clear Calc Est GFR (MDRD) Af Amer Est GFR (MDRD) Non-Af BUN/Creatinine Ratio Glucose Calcium Blood Type B POSITIVE Antibody Screen NEGATIVE Crossmatch See Detail - Medical Decision Making Patient is evaluated after mechanical fall. He is hemodynamically stable in the emergency room but does become hypoxic. Patient is at 88%. He was placed on nasal cannula with improvement. Patient does have myelodysplastic syndrome and recurrent anemia. Patient seen globin today is 6.5. He is typed and screened a nd will need transfusion. I suspect his hypoxia secondary to his anemia. CT of the brain and C-spine show no acute process. Chest x-ray does not show any acute process. Platelets are 100. BMP does not show any significant changes. Patient's clot is removed from his right naris and has no further bleeding in the emergency room. Skin tears on his left elbow not amenable to repair because it is superficial. [facility] and [facility] not have any beds available to be admitted to our hospital. I do think patient requires admission because of symptomatic anemia with hypoxia and requires transfusion. Patient is stable for the medical floor at time of disposition. ED Disposition - Plan for ED Patient: Diagnosis: Anemia, Hypoxia, Accident due to mechanical fall without injury, Skin tear of elbow without complication
[2019-02-10 21:05] LABS: Absolute Lymphocyte Count 0.33 X10^3/uL (0.83-4.51); Absolute Neutrophil Count 3.4 X10^3/uL (2.0-7.7); Basophil# 0.01 X10^3/uL; Basophil% 0.2 % (0-1); Eosinophil# 0.01 X10^3/uL; Eosinophils% 0.2 % (0-5); Hemoglobin 6.5 g/dL (13.0-16.5); Lymphocyte # 0.33 X10^3/ul (4.0); Lymphocyte % 7.5 % (19-41); Mean Corp Hgb Conc 29.5 g/dL (32-36); Mean Corpuscular Hgb 28.1 pg (27.0-32.0); Mean Corpuscular Volume 95.2 fL (80-94); Mean Platelet Vol. 9.6 fl (6.2-12.0); Monocyte# 0.48 X10^3/uL; NRBC Flagged by Analyzer 0.9 % (0-5); Neutrophil # 3.35 X10^3/uL (2.7-7.7); Neutrophil % 76.5 % (47-70); POSITIVE DIFFERENTIAL YES; POSITIVE MORPHOLOGY YES; Platelet Count 100 K/mm3 (150-450); RBC Distribution Width CV 22.5 % (11.6-14.6); RBC Distribution Width SD 77.4 fl (35.1-43.9); Red Blood Count 2.31 M/mm3 (4.6-6.2); White Blood Count 4.4 K/mm3 (4.4-11.0)
[2019-02-10 21:08] LABS: Differential Indicated SCAN CRITERIA MET
[2019-02-10 21:19] LABS: International Normalized Ratio 1.4; Prothrombin Time (Protime)PT. 17.3 SECONDS (11.7-14.9)
[2019-02-10 21:20] LABS: Partial Thromboplast Time 45.3 Seconds (24.1-36.2)
[2019-02-10 21:35] LABS: Differential Comment SCANNED
[2019-02-10 21:36] LABS: Anisocytosis 1+; Ovalocyte RARE
[2019-02-10] MEDS: Diphth,Pertuss(Acell),Tet Vac 0.5 ML Vial IM (22:12)
--- NOTE | 2019-02-10 22:20 | RAD_ITS ---
STUDY: X-RAY CHEST REASON FOR EXAM: Male, 68 years old. Fall TECHNIQUE: Frontal view of the chest COMPARISON: 12/14/2018 FINDINGS: There are mild congestive changes noted. The lungs are otherwise clear. There are no pleural effusions. There is no pneumothorax. The heart is normal in size. Again noted are sternotomy wires. The visualized osseous structures are intact. RAD/Chest 1 View (Portable) IMPRESSION: Mild pulmonary vascular congestion. Electronically Signed: Jose Pascual, at 22:42 EDT Tel , Service support ,
--- NOTE | 2019-02-10 22:28 | NURSING ---
CALLED [facility] AND TALKED TO SVETLANA AND WAS TOLD THEY HAD NO AVAILABLE BEDS THIS EVENING AND IT WAS OK TO ADMIT PATIENT HERE.
--- NOTE | 2019-02-10 22:34 | HP.PCM_ITS ---
Problem List (1) Anemia Status: Acute (2) Hypoxia Status: Acute (3) Skin tear of elbow without complication Status: Acute (4) Generalized weakness Status: Chronic (5) High output congestive heart failure Status: Chronic (6) History of congestive heart failure Status: Chronic (7) History of depression Status: Chronic (8) History of hypertension Status: Chronic (9) History of neuropathy Status: Chronic (10) Lymphedema of both lower extremities Status: Chronic (11) Signs and symptoms of anemia Status: Chronic (12) Epistaxis Status: Chronic (13) MDS (myelodysplastic syndrome) Status: Chronic History of Present Illness Date of Admission: 02/10/19 Chief Complaint: fall The patient is a 68 year old M with CAD s/p CABG and coronary stent; aortic va lve repair; congestive heart failure; HTN; epistaxis; myelodysplastic syndrome will receive routine Epogen and blood transfusion presented to the emergency department because of a fall while getting off his van. 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 While returning home he fell from his van as stated above. He reports lightheadedness preceding the fall. He thinks his lightheadedness is from his low blood counts. At the emergency department patient was noted to have low hemoglobin. Two units of blood was ordered at the emergency department. Also blood clots was taken out from his right naris at the emergency department. Also nurse reports that patient was coughing up dry blood at the emergency department. Following his fall he sustained 2 lacerations at his left elbow. Also, he reports of bruise that he sustained about 3 days ago following a fall from his toilets. Also noted was a skin tear at his right forearm that he reports is old. At the Emergency department patient was noted to have oxygen saturation of 88% on room air and for which reason nasal cannula oxygen was started at 2 L. Past Medical History Past Medical History (Chronic Problems): Chronic Problems History of congestive heart failure (Chronic) History of depression (Chronic) History of hypertension (Chronic) History of neuropathy (Chronic) High output congestive heart failure (Chronic) Signs and symptoms of anemia (Chronic) Lymphedema of both lower extremities (Chronic) Generalized weakness (Chronic) Epistaxis (Chronic) MDS (myelodysplastic syndrome) (Chronic) Allergies No Known Allergies Allergy (Verified 01/15/19 19:54) Home Medications: Ambulatory Orders Medication Instructions Recorded Acetaminophen 325 mg PO Q6H PRN PRN 07/22/18 Aspirin [Adult Aspirin Regimen] 81 mg PO DAILY 07/22/18 Atorvastatin Calcium 20 mg PO QHS 07/22/18 Cholecalciferol (Vitamin D3) 2,000 unit PO DAILY 07/22/18 [Vitamin D3] Gabapentin [Neurontin] 300 mg PO QHS 07/22/18 Metoprolol Tartrate [Lopressor 50 mg PO BID 07/22/18 (beta krystina)] Sertraline HCl 150 mg PO DAILY 07/22/18 traZODone [Desyrel] 25 mg PO QHS 07/22/18 Clopidogrel Bisulfate [Plavix] 75 mg PO DAILY 11/12/18 Epoetin Esteban-Epbx [Retacrit] 40,000 unit IJ UD 12/14/18 Surgical History: coronary bypass surgery, - - Aortic valve replacement Psychiatric History: No pertinent psych hx Lives: Alone Smoking Status: Current every day smoker - *Family History Maternal History Items: - - carotid artery disease Paternal History Items: Cancer - Lung Review of Systems Constitutional: Reports: Anorexia, Weakness. Denies: Chills, Fever, Weight Change HEENT: Denies: Head Aches, Sinus Congestion, Sinus Drainage Cardiovascular: Reports: Light Headedness. Denies: Chest Pain, Palpitations Respiratory: Denies: Cough, Shortness of breath at rest, Sputum production Gastrointestinal: Denies: Abdominal Pain, Nausea, Vomiting Genitourinary: Denies: Dysuria Musculoskeletal: Denies: Joint Pain, Joint Tenderness Skin: Reports: Wounds. Denies: Rash Neurological: Denies: Numbness, Tingling, Focal weakness Psychiatric: Denies: Anxiety, Depression, Homicidal Ideations, Suicidal Ideations Hematologic/ Lymphatic: Reports: Anemia, Hx of blood transfusion. Denies: Easy Bruising, Easy Bleeding VTE Information - Inpt Only VTE Present on Admission: No VTE Mechan Device Prophylaxis: SCD's VTE Pharm Prophylaxis ordered?: No Patient Problems: Active and Suspected Problems Anemia (Acute) Hypoxia (Acute) Skin tear of elbow without complication (Acute) - Physical Exam General: Alert, Oriented x3, Cooperative, - HEENT: Atraumatic, PERRLA, EOMI, Normocephalic Neck: Supple, No JVD, Negative Carotid Bruits Lungs: Clear to auscultation, Normal air movement Cardiovascular: Regular rate, No murmurs Abdomen: Bowel Sounds Present, Soft, Non Tender Extremities: No edema, Capillary Refill Less than 3 Seconds Skin: No rashes, - - Ecchymosis right upper chest; skin tear x2 on left elbow; wound on right forearm Musculoskeletal: No Tenderness to Palpation of Joints or Extremities Neurological: Cranial nerves II-XII grossly intact Psych/Mental Status: Normal Affect, Appropriate Vital Signs Temp Pulse Resp BP Pulse Ox 97.4 F L 98 16 138/69 H 88 02/10/19 20:29 02/10/19 21:32 02/10/19 21:32 02/10/19 21:32 02/10/19 21:32 Oxygen Flow Rate (L/min) 2 Oxygen Delivery Method Nasal Cannula Weight: 72.7 kg Body Mass Index (BMI) 23.6 Laboratory Tests Past 24 Hrs 02/10/19 02/10/19 02/10/19 20:55 20:55 20:55 WBC 4.4 RBC 2.31 L Hgb 6.5 L Hct 22.0 L MCV 95.2 H MCH 28.1 MCHC 29.5 L RDW Std Deviation 77.4 H RDW Coeff of Kriss 22.5 H Plt Count 100 L MPV 9.6 Immature Gran % (Auto) 4.600 H Neut % (Auto) 76.5 H Lymph % (Auto) 7.5 L Wake % (Auto) 11.0 H Eos % (Auto) 0.2 Baso % (Auto) 0.2 Absolute Neuts (auto) 3.4 Absolute Lymphs (auto) 0.33 L Nucleated RBC % 0.9 Differential Comment SCANNED Diff Path Review May foll Anisocytosis 1+ Ovalocytes RARE PT 17.3 H INR 1.4 APTT 45.3 H Sodium Pending Potassium Pending Chloride Pending Carbon Dioxide Pending Anion Gap Pending BUN Pending Creatinine Pending Est GFR (MDRD) Af Amer Pending Est GFR (MDRD) Non-Af Pending BUN/Creatinine Ratio Pending Glucose Pending Calcium Pending Blood Type Antibody Screen Crossmatch 02/10/19 21:26 WBC RBC Hgb Hct MCV MCH MCHC RDW Std Deviation RDW Coeff of Kriss Plt Count MPV Immature Gran % (Auto) Neut % (Auto) Lymph % (Auto) Wake % (Auto) Eos % (Auto) Baso % (Auto) Absolute Neuts (auto) Absolute Lymphs (auto) Nucleated RBC % Differential Comment Diff Path Review Anisocytosis Ovalocytes PT INR APTT Sodium Potassium Chloride Carbon Dioxide Anion Gap BUN Creatinine Est GFR (MDRD) Af Amer Est GFR (MDRD) Non-Af BUN/Creatinine Ratio Glucose Calcium Blood Type B POSITIVE Antibody Screen NEGATIVE Crossmatch See Detail Assessment/Plan All Active Problems Anemia (Acute) Hypoxia (Acute) Skin tear of elbow without complication (Acute) The patient is a 68 year old M with CAD s/p CABG and coronary stent; aortic valve repair/replacement; congestive heart failure; HTN; epistaxis; myelodysplastic syndrome will receive routine Epogen and blood transfusion presented to the emergency department because of a fall while getting off his van and found to have anemia below his baseline. Acute on chronic anemia Secondary to likely his history of myelodysplastic syndrome. Two units of blood was ordered at the emergency department. Because of history of heart failure will order Lasix in between blood transfusion. Repeat H&H 1 hour after second unit of blood has been transfused. Hold aspirin and Plavix. Of notes patient had a CABG many years ago. He reports a coronary stent placed about 2 years ago. Acute hypoxic respiratory insufficiency Oxygen saturation of 88% while on room air. Likely due to anemia. Treatment as above. Oxygen supplementation to maintain oxygen saturation above 92%. CHF Chest x-ray has mild pulmonary vascular congestion. Lasix as above Metoprolol continued. CAD status post CABG Patient is on home aspirin and Plavix in the setting of chronic anemia. Will hold aspirin and Plavix. From review of previous records Plavix was discontinued. Admission. Recommend discontinuing Plavix patient to follow-up with his parole hearing officer. Multiple Fall with laceration and bruises We will get vitamin B12 and vitamin D. Likely secondary to acute on chronic anemia Wound care consult. Continue dry dressing to skin tear areas onto wound care recommendations. DVT prophylaxis SCD Code Visit OBSV E&M: 80177 Initial observation care L3
[2019-02-10 22:41] LABS: Anion Gap 7 (5-15); BUN 17 mg/dL (7-18); BUN/Creat Ratio 15.5 RATIO (10-20); Calcium,Total 8.4 mg/dL (8.5-10.1); Chloride 110 mmol/L (98-107); EST Glomerular Filtration Rate 70 mL/min (>60); Est Glom Filt Rate - Afr Amer 85 mL/min (>60); Estimated Creatinine Clearance 62.49 ml/min; Glucose 115 mg/dL (74-106); Sodium Level 143 mmol/L (136-145)
[2019-02-11] VITALS (28 sets, daily range): BP systolic 117–162; BP diastolic 55–79; PULSE 81–108; RESP 16–22; TEMP 36.6–37.1; O2SAT 85–99; BMI 22.8; BMI 22.9
[2019-02-11] MEDS: Furosemide 40 MG/4 ML Vial IV (01:38)
[2019-02-11 02:12] LABS: Red Blood Cells-Urine 0 SEEN /hpf (0-5)
[2019-02-11 02:21] LABS: Color, Urine Yellow (Yellow); Glucose, Dipstick Normal (Normal); Ketone-Dipstick Negative (Negative); Leukocyte Esterase-Dipstick 25 /ul (Negative); Nitrite-Dipstick Negative (Negative); Occult Blood-Urine Negative /ul (Negative); Protein-Dipstick 100 mg/dl (Negative); Urine Bilirubin Dipstick Negative (Negative); Urine Clarity Clear (Clear); Urine Urobilinogen 8 mg/dl (Normal)
[2019-02-11 02:26] LABS: Squamous Epithelial Cells - UA 0-5 SEEN /hpf (0-5)
[2019-02-11 02:27] LABS: Bacteria RARE /hpf (None Seen); Mucous, Urine RARE /hpf (<or=2+); White Blood Cells 0-5 SEEN /hpf (0-5)
[2019-02-11 06:40] LABS: Hematocrit 26.7 % (40-54); Hemoglobin 8.3 g/dL (13.0-16.5)
--- NOTE | 2019-02-11 07:49 | EKG12_ITS ---
Test Reason : ROUTINE Blood Pressure : / mmHG Vent. Rate : 108 BPM Atrial Rate : 108 BPM P-R Int : 168 ms QRS Dur : 100 ms QT Int : 374 ms P-R-T Axes : 073 090 -64 degrees QTc Int : 501 ms Sinus tachycardia with occasional Premature ventricular complexes Rightward axis ST & T wave abnormality, consider inferolateral ischemia Abnormal ECG Confirmed by GOMEZ CONROY, MATTHEW ([id number]), avid editor CHAVO POMPA ([id number]) on 02/20/2019 11:39:00 AM Referred By: JOSE ALBERTO Confirmed By:MATTHEW DYER MD
--- NOTE | 2019-02-11 08:19 | PCM.PROGNOTE ---
Patient Problems: Active and Suspected Problems Hypoxia (Acute) Acute on chronic anemia (Acute) Skin tear of elbow without complication (Acute) Subjective: Chief complaint: Follow-up after admission for acute on chronic symptomatic anemia, hypoxia and fall. Patient seen and examined. No acute events overnight. Today, he stated that his shortness of breath started to improve after he received blood transfusion. He has no more blurry vision which he had yesterday. When I was talking to the patient, he started having nausea and vomiting. He attributed that to taking his medication and not eating. He reported poor appetite. Denied abdominal pain, fever or chills. Denied chest pain, dizziness or lightheadedness. He is afebrile, blood pressure and heart rate are stable, pulse ox is 99% on 2 L. - Physical Exam General: Alert, Oriented x3, Cooperative, - - Short of breath on speaking. HEENT: Atraumatic, PERRLA, EOMI, Normocephalic Oral: Moist Mucosa, No Gingival or Mucosal Lesions/ Ulcerations Neck: Supple, No JVD, Negative Carotid Bruits, Trachea Midline, Thyroid Normal Size and Texture Lungs: No wheeze, No rales, Diminished, Rhonchi, Short of Breath Cardiovascular: Regular rate, Regular Rhythm, Normal S1, Normal S2, PMI Normal Abdomen: Bowel Sounds Present, Soft, Non Tender, Non-Distended, No Hepato-splenomegaly Extremities: No clubbing, No cyanosis, No edema Skin: No rashes, - - Skin bruises. Lymphatic: No Cervical, Supraclavicular, or Inguinal Adenopathy Neurological: Cranial nerves II-XII grossly intact, Motor Exam 5/5 strength throughout Psych/Mental Status: Normal Affect, Appropriate, Alert and oriented to time, place, person, mood and affect Vital Signs Temp Pulse Resp BP Pulse Ox 98.5 F 98 20 H 148/68 H 96 02/11/19 05:05 02/11/19 05:05 02/11/19 05:05 02/11/19 05:05 02/11/19 08:16 Oxygen Flow Rate (L/min) 2 Oxygen Delivery Method Nasal Cannula Weight: 154 lb 12.232 oz Body Mass Index (BMI) 22.8 Intake and Output for Last 24 Hours 02/09/19 02/10/19 02/11/19 23:59 23:59 23:59 Intake Total 0 / 0 800 / 800 Output Total 1300 / 1300 Balance 0 / 0 -500 / -500 Laboratory Tests Past 24 Hrs 02/10/19 02/10/19 02/10/19 20:55 20:55 20:55 WBC 4.4 RBC 2.31 L Hgb 6.5 L Hct 22.0 L MCV 95.2 H MCH 28.1 MCHC 29.5 L RDW Std Deviation 77.4 H RDW Coeff of Kriss 22.5 H Plt Count 100 L MPV 9.6 Immature Gran % (Auto) 4.600 H Neut % (Auto) 76.5 H Lymph % (Auto) 7.5 L Catron % (Auto) 11.0 H Eos % (Auto) 0.2 Baso % (Auto) 0.2 Absolute Neuts (auto) 3.4 Absolute Lymphs (auto) 0.33 L Nucleated RBC % 0.9 Differential Comment SCANNED Diff Path Review May foll Anisocytosis 1+ Ovalocytes RARE PT 17.3 H INR 1.4 APTT 45.3 H Sodium 143 Potassium 4.0 Chloride 110 H Carbon Dioxide 26.0 Anion Gap 7 BUN 17 Creatinine 1.10 Estim Creat Clear Calc 62.49 Est GFR (MDRD) Af Amer 85 Est GFR (MDRD) Non-Af 70 BUN/Creatinine Ratio 15.5 Glucose 115 H Calcium 8.4 L Vitamin B12 Vitamin D 25-Hydroxy Urine Color Urine Clarity Urine pH Ur Specific [place] Urine Protein Urine Glucose (UA) Urine Ketones Urine Occult Blood Urine Nitrite Urine Bilirubin Urine Urobilinogen Ur Leukocyte Esterase Urine RBC Urine WBC Ur Squamous Epith Cells Urine Bacteria Urine Mucus Blood Type Antibody Screen Crossmatch 02/10/19 02/11/19 02/11/19 21:26 02:00 06:00 WBC RBC Hgb Hct MCV MCH MCHC RDW Std Deviation RDW Coeff of Kriss Plt Count MPV Immature Gran % (Auto) Neut % (Auto) Lymph % (Auto) Catron % (Auto) Eos % (Auto) Baso % (Auto) Absolute Neuts (auto) Absolute Lymphs (auto) Nucleated RBC % Differential Comment Diff Path Review Anisocytosis Ovalocytes PT INR APTT Sodium Potassium Chloride Carbon Dioxide Anion Gap BUN Creatinine Estim Creat Clear Calc Est GFR (MDRD) Af Amer Est GFR (MDRD) Non-Af BUN/Creatinine Ratio Glucose Calcium Vitamin B12 Pending Vitamin D 25-Hydroxy Pending Urine Color Yellow Urine Clarity Clear Urine pH 7.0 Ur Specific [place] 1.010 Urine Protein 100 H Urine Glucose (UA) Normal Urine Ketones Negative Urine Occult Blood Negative Urine Nitrite Negative Urine Bilirubin Negative Urine Urobilinogen 8 H Ur Leukocyte Esterase 25 H Urine RBC 0 SEEN Urine WBC 0-5 SEEN Ur Squamous Epith Cells 0-5 SEEN Urine Bacteria RARE Urine Mucus RARE Blood Type B POSITIVE Antibody Screen NEGATIVE Crossmatch See Detail 02/11/19 06:00 WBC RBC Hgb 8.3 L Hct 26.7 L MCV MCH MCHC RDW Std Deviation RDW Coeff of Kriss Plt Count MPV Immature Gran % (Auto) Neut % (Auto) Lymph % (Auto) Catron % (Auto) Eos % (Auto) Baso % (Auto) Absolute Neuts (auto) Absolute Lymphs (auto) Nucleated RBC % Differential Comment Diff Path Review Anisocytosis Ovalocytes PT INR APTT Sodium Potassium Chloride Carbon Dioxide Anion Gap BUN Creatinine Estim Creat Clear Calc Est GFR (MDRD) Af Amer Est GFR (MDRD) Non-Af BUN/Creatinine Ratio Glucose Calcium Vitamin B12 Vitamin D 25-Hydroxy Urine Color Urine Clarity Urine pH Ur Specific [place] Urine Protein Urine Glucose (UA) Urine Ketones Urine Occult Blood Urine Nitrite Urine Bilirubin Urine Urobilinogen Ur Leukocyte Esterase Urine RBC Urine WBC Ur Squamous Epith Cells Urine Bacteria Urine Mucus Blood Type Antibody Screen Crossmatch Clinical Impression(s) from Imaging Studies Brain CT 02/10/19 20:47 IMPRESSION: No acute intracranial abnormality. Chronic ischemic and atrophic changes. Electronically Signed: Víctor Ram, at 22:05 EDT Tel , Service support , Cervical Spine CT 02/10/19 20:47 IMPRESSION: No fracture or dislocation of the cervical spine. Electronically Signed: Holden Lay, at 22:32 EDT Tel , Service support , Chest X-Ray 02/10/19 22:20 IMPRESSION: Mild pulmonary vascular congestion. Electronically Signed: Jose Pascual, at 22:42 EDT Tel , Service support , Medical Necessity - Tobacco Use Smoking Status: Current every day smoker Tobacco Use: Cigarettes Assessment/Plan All Active Problems Hypoxia (Acute) Acute on chronic anemia (Acute) Skin tear of elbow without complication (Acute) This is a 68 years old male patient presented to the emergency room because of fall, epistaxis, shortness of breath and blurry vision, patient knew that he is due for transfusion because of anemia, found to have acute on chronic anemia in context of history of myelodysplastic syndrome and also found to have hypoxia and left forearm abrasion/skin tear. #1 acute on chronic symptomatic anemia: In context of history of myelodysplastic syndrome with recurrent anemia requiring frequent blood transfusions and he is on Epogen injections. This anemia is likely because of MDS in addition to epistaxis. Patient mentioned that he has been having significant epistaxis yesterday after he blew his nose. Admission hemoglobin was 6.5 g/dL. Patient received 2 units of packed RBCs and today's hemoglobin is 8.3 g/dL. At this time, he denies any active bleeding. Symptoms of shortness of breath and blood pressure improved. He does have chronic thrombocytopenia which is stable. INR 1.4. Plan: Transfuse another unit of packed RBCs, CBC tomorrow morning, keep holding aspirin and Plavix for now, PT OT evaluation and treatment. #2 hypoxia: Likely because of worsening anemia. Patient never been on oxygen before. Chest x-ray reviewed, no acute findings. I doubt acute CHF. Pulse ox is 95% on 2 L. Plan to wean off oxygen as tolerated. #3 frequent falls/skin abrasion/tear of the left forehead: CT scan brain and CT scan cervical spine were unremarkable, no fractures or intracranial bleed. He does have left forearm skin abrasion/tear. Care nurse consulted. #4 myelodysplastic syndrome: Currently is not on any treatment. [facility] #5 CAD status post CABG and stents: Patient denies any chest pain. Stable. Aspirin and Plavix held. Continue statins and beta-blockers. #6 chronic congestive heart failure, unspecified: Stable at this time, compensated. Continue beta-blockers. Patient is not on MARISELA inhibitors or diuretics. #7 hyperlipidemia: Continue statins. #8 depression: Continue Zoloft and trazodone. #9 DVT prophylaxis: SCDs. #10 CODE STATUS: DNR CCA. Discussed with the patient. This note was generated with [employer] dictation software. It may contain incorrect words, spelling, and punctuation that were not noted in checking the note before signing. Code Visit Inpatient E&M: 30945 Subs Hosp L2
[2019-02-11] MEDS: 0.9% Saline Lock 10 ML Syringe IV ×4 (08:27→21:43)
[2019-02-11] MEDS: Ondansetron 4 MG/2 ML Vial IV (08:27)
[2019-02-11] MEDS: Famotidine 200 MG/20 ML MDV 20 MG in 0.9% Normal Saline (Pres. free 8 ML 300 MG IV ×2 (11:09→21:43)
[2019-02-11] MEDS: Metoprolol Tartrate 50 MG Tablet PO ×2 (11:11→21:42)
[2019-02-11] MEDS: Sertraline 50 MG Tablet 150 MG PO (11:12)
--- NOTE | 2019-02-11 15:28 | CM.UR ---
RN CM Assessment Met face to face with patient for initial transition planning/care coordination assessment. Introduced myself and my role. Verb understanding and agreement for assessment. No family/friends at bedside. Presentation: Weakness, fatigue Admit dx: Anemia PCP: Guerda Powers, REVIEW SCHEDULING COORDINATOR [facility] [place] Specialists: States he has Heme and cardio at [facility] Preferred Pharmacy: [facility] Barriers: Motivation. Insurance: VA and MCR part A only. Prescription Benefit: VA only. LNOK: No family local. Daughter in [place]. Previously talked about how friend Emre Kirby helped him a lot however at this time patient is stating that Emre is very active and isn't available to him as much. Now speaking about Elie Asher. 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 States that they are looking for a 2 bedroom apt so they can move in together. States Elie currently lives in a hotel. Home: Apartment. 4 steps with railing. ADLs: Lives alone at this time. States he does most things for himself. States he needs blood transfusions frequently when his numbers drop. States when that happens--he gets weak, fatigued and it is harded to do things and he doesn't feel like it. DME: Grab bars, shower chair, handheld shower head and walker. states he was brought a guardian alert by Michael SLADE but it was the one for landlines. States he asked Michael to get him the cellular one and told him to take the landline back. States he did and Michael was going to call him when it came in. states that was about 2.5-3 months ago. Explained I'll alert the VA to check on it. Vet has been set up for O2 before but decided once it was delivered to decline it. States he is not ready for that. Vet still smokes so cannot get o2 from VA. He doesn't have coverage outside of [place]. SNF/HHC: Denies every having either. Asked if he has ever had [facility] (prior to above question about DME) and he could not confirm that he ever had. However BERLIN Rodriguez is the SW for [facility]. Also states that he was working on [employer] but the [facility] was having trouble staffing his location. Vet then did say he was in [facility] [place] at [place] before. Passport/waiver peripheral edp equipment operator: Denies Advance Directives: None. Declined information at this time. DC PLAN: TBD. Vet declines SNF placement at this time. Feels he doesn't need it. States he will when he feels he needs it. Faxed records to [place] clinic at this time. Guerda Gavin RN, [facility].
[2019-02-11] MEDS: Gabapentin 300 MG Capsule PO (21:43)
[2019-02-11] MEDS: traZODone 50 MG Tablet 25 MG PO (21:43)
[2019-02-12] VITALS (15 sets, daily range): BP systolic 106–137; BP diastolic 42–56; PULSE 38–84; RESP 16–18; TEMP 36.5–37.1; O2SAT 92–95
[2019-02-12 05:58] LABS: Absolute Lymphocyte Count 0.49 X10^3/uL (0.83-4.51); Absolute Neutrophil Count 2.3 X10^3/uL (2.0-7.7); Anion Gap 5 (5-15); BUN 27 mg/dL (7-18); BUN/Creat Ratio 18.8 RATIO (10-20); Basophil# 0.01 X10^3/uL; Basophil% 0.3 % (0-1); Calcium,Total 7.8 mg/dL (8.5-10.1); Chloride 110 mmol/L (98-107); Creatinine, Serum 1.44 mg/dL (0.70-1.30); EST Glomerular Filtration Rate 51 mL/min (>60); Eosinophil# 0.04 X10^3/uL; Eosinophils% 1.1 % (0-5); Est Glom Filt Rate - Afr Amer 62 mL/min (>60); Glucose 102 mg/dL (74-106); Hematocrit 27.1 % (40-54); Hemoglobin 8.4 g/dL (13.0-16.5); Lymphocyte # 0.49 X10^3/ul (4.0); Mean Corpuscular Hgb 28.7 pg (27.0-32.0); Mean Corpuscular Volume 92.5 fL (80-94); Mean Platelet Vol. 11.1 fl (6.2-12.0); Monocyte% 17.1 % (0-10); NRBC Flagged by Analyzer 0 % (0-5); Neutrophil # 2.28 X10^3/uL (2.7-7.7); Neutrophil % 65.2 % (47-70); POSITIVE DIFFERENTIAL YES; POSITIVE MORPHOLOGY YES; Platelet Count 97 K/mm3 (150-450); Potassium 4.6 mmol/L (3.5-5.1); RBC Distribution Width CV 19.9 % (11.6-14.6); RBC Distribution Width SD 64.9 fl (35.1-43.9); Red Blood Count 2.93 M/mm3 (4.6-6.2); Sodium Level 142 mmol/L (136-145); White Blood Count 3.5 K/mm3 (4.4-11.0)
[2019-02-12 06:00] LABS: Differential Indicated SCAN CRITERIA MET
[2019-02-12 06:41] LABS: Differential Comment SCANNED; Macrocytosis 1+; Microcytosis 2+
--- NOTE | 2019-02-12 08:22 | PCM.PROGNOTE ---
Patient Problems: Active and Suspected Problems Hypoxia (Acute) Acute on chronic anemia (Acute) Skin tear of elbow without complication (Acute) Subjective: Chief complaint: Follow-up after admission for acute on chronic symptomatic anemia, hypoxia and fall. Patient seen and examined. No acute events overnight. He feels significantly better but he mentioned that his breathing is still labored and improved compared to admission. He denies any more blurry vision or weakness. He is requiring up to 3 L of oxygen, other vital signs are stable. - Physical Exam General: Alert, Oriented x3, Cooperative, No apparent distress HEENT: Atraumatic, PERRLA, EOMI, Normocephalic Oral: Moist Mucosa, No Gingival or Mucosal Lesions/ Ulcerations Neck: Supple, No JVD, Negative Carotid Bruits, Trachea Midline, Thyroid Normal Size and Texture Lungs: No wheeze, No rales, Diminished, Rhonchi, - - Decreased breath sounds at the bases, rhonchi. Cardiovascular: Regular rate, Regular Rhythm, Normal S1, Normal S2, PMI Normal Abdomen: Bowel Sounds Present, Soft, Non Tender, Non-Distended, No Hepato-splenomegaly Extremities: No clubbing, No cyanosis, No edema Skin: No rashes, No breakdown Lymphatic: No Cervical, Supraclavicular, or Inguinal Adenopathy Neurological: Cranial nerves II-XII grossly intact, Neuro grossly intact Psych/Mental Status: Normal Affect, Appropriate, Alert and oriented to time, place, person, mood and affect Vital Signs Temp Pulse Resp BP Pulse Ox 98.5 F 72 18 106/42 L 92 02/12/19 03:38 02/12/19 07:07 02/12/19 03:38 02/12/19 03:38 02/12/19 07:40 Oxygen Flow Rate (L/min) 3 Oxygen Delivery Method Nasal Cannula Weight: 154 lb 12.232 oz Body Mass Index (BMI) 22.8 Intake and Output for Last 24 Hours 02/10/19 02/11/19 02/12/19 23:59 23:59 23:59 Intake Total 0 / 0 1780 / 1780 Output Total 1550 / 1550 125 / 125 Balance 0 / 0 230 / 230 -125 / -125 Laboratory Tests Past 24 Hrs 02/10/19 02/10/19 02/11/19 20:26 21:26 06:00 WBC RBC Hgb Hct MCV MCH MCHC RDW Std Deviation RDW Coeff of Kriss Plt Count MPV Immature Gran % (Auto) Neut % (Auto) Lymph % (Auto) [place] % (Auto) Eos % (Auto) Baso % (Auto) Absolute Neuts (auto) Absolute Lymphs (auto) Nucleated RBC % Differential Comment Microcytosis Macrocytosis Sodium Potassium Chloride Carbon Dioxide Anion Gap BUN Creatinine Estim Creat Clear Calc Est GFR (MDRD) Af Amer Est GFR (MDRD) Non-Af BUN/Creatinine Ratio Glucose Calcium Prealbumin 18.0 L Crossmatch See Detail See Detail 02/12/19 02/12/19 05:05 05:05 WBC 3.5 L RBC 2.93 L Hgb 8.4 L Hct 27.1 L MCV 92.5 MCH 28.7 MCHC 31.0 L RDW Std Deviation 64.9 H RDW Coeff of Kriss 19.9 H Plt Count 97 L MPV 11.1 Immature Gran % (Auto) 2.300 H Neut % (Auto) 65.2 Lymph % (Auto) 14.0 L [place] % (Auto) 17.1 H Eos % (Auto) 1.1 Baso % (Auto) 0.3 Absolute Neuts (auto) 2.3 Absolute Lymphs (auto) 0.49 L Nucleated RBC % 0 Differential Comment SCANNED Microcytosis 2+ Macrocytosis 1+ Sodium 142 Potassium 4.6 Chloride 110 H Carbon Dioxide 27.0 Anion Gap 5 BUN 27 H Creatinine 1.44 H Estim Creat Clear Calc 47.40 Est GFR (MDRD) Af Amer 62 Est GFR (MDRD) Non-Af 51 L BUN/Creatinine Ratio 18.8 Glucose 102 Calcium 7.8 L Prealbumin Crossmatch Medical Necessity - Tobacco Use Smoking Status: Current every day smoker Tobacco Use: Cigarettes Assessment/Plan All Active Problems Hypoxia (Acute) Acute on chronic anemia (Acute) Skin tear of elbow without complication (Acute) This is a 68 years old male patient presented to the emergency room because of fall, epistaxis, shortness of breath and blurry vision, patient knew that he is due for transfusion because of anemia, found to have acute on chronic anemia in context of history of myelodysplastic syndrome and also found to have hypoxia and left forearm abrasion/skin tear. #1 acute on chronic symptomatic anemia: Received a total of 3 units of packed RBCs. Today's hemoglobin is 8.4 g/dL. Patient symptoms improved, has no more epistaxis. He is requiring oxygen up to 3 L, other vital signs are stable. He had history of myelodysplastic syndrome with recurrent anemia requiring frequent blood transfusions and he is on Epogen injections. This anemia is likely because of MDS in addition to epistaxis. He does have chronic thrombocytopenia which is stable. INR 1.4. Plan: Repeat H&H at 2 PM today, transfuse if hemoglobin less than 8 g/dL, repeat CBC tomorrow morning. #2 hypoxia: Likely because of worsening anemia and probable volume overload. He is requiring up to 3 L. Chest x-ray reviewed, minimal pulmonary vascular congestion. Patient mentioned that he takes Lasix at home. Plan: We will give 1 dose of IV Lasix 20 mg x 1, resume Lasix if patient takes at home, wean off oxygen as tolerated. #3 frequent falls/skin abrasion/tear of the left forehead: CT scan brain and CT scan cervical spine were unremarkable, no fractures or intracranial bleed. He does have left forearm skin abrasion/tear. Wound care nurse consulted. #4 myelodysplastic syndrome: Currently is not on any treatment. He follows up with oncology at the [place]. #5 CAD status post CABG and stents: Patient denies any chest pain. Stable. Aspirin and Plavix held. Continue statins and beta-blockers. #6 chronic congestive heart failure, unspecified: Stable at this time, compensated. Continue beta-blockers, resume Lasix as patient mentioned that he takes Lasix at home. Patient is not on MARISELA inhibitors. #7 hyperlipidemia: Continue statins. #8 depression: Continue Zoloft and trazodone. #9 DVT prophylaxis: SCDs. #10 CODE STATUS: DNR CCA. Discussed with the patient. This note was generated with [facility] dictation software. It may contain incorrect words, spelling, and punctuation that were not noted in checking the note before signing. Code Visit Inpatient E&M: 47041 Subs Hosp L2
[2019-02-12] MEDS: Famotidine 200 MG/20 ML MDV 20 MG in 0.9% Normal Saline (Pres. free 8 ML 300 MG IV (09:18)
[2019-02-12] MEDS: Metoprolol Tartrate 50 MG Tablet PO ×2 (09:18→20:31)
[2019-02-12] MEDS: 0.9% Saline Lock 10 ML Syringe IV (09:18)
[2019-02-12] MEDS: Furosemide 20 MG/2 ML VIAL IV (09:18)
[2019-02-12] MEDS: Sertraline 50 MG Tablet 150 MG PO (09:18)
[2019-02-12 14:23] LABS: Hematocrit 29.7 % (40-54); Hemoglobin 9.3 g/dL (13.0-16.5)
[2019-02-12] MEDS: traZODone 50 MG Tablet 25 MG PO (20:30)
[2019-02-12] MEDS: Gabapentin 300 MG Capsule PO (20:31)
[2019-02-13] VITALS (11 sets, daily range): BP systolic 108–125; BP diastolic 47–55; PULSE 67–84; RESP 15–24; TEMP 36.5–36.6; O2SAT 83–99
[2019-02-13 05:51] LABS: Absolute Lymphocyte Count 0.35 X10^3/uL (0.83-4.51); Basophil# 0.02 X10^3/uL; Basophil% 0.7 % (0-1); Eosinophil# 0.03 X10^3/uL; Hemoglobin 8.6 g/dL (13.0-16.5); Lymphocyte # 0.35 X10^3/ul (4.0); Lymphocyte % 11.6 % (19-41); Mean Corp Hgb Conc 30.7 g/dL (32-36); Mean Corpuscular Hgb 28.6 pg (27.0-32.0); Monocyte# 0.52 X10^3/uL; Monocyte% 17.3 % (0-10); NRBC Flagged by Analyzer 0 % (0-5); Neutrophil # 2.04 X10^3/uL (2.7-7.7); Neutrophil % 67.7 % (47-70); POSITIVE DIFFERENTIAL YES; POSITIVE MORPHOLOGY YES; Platelet Count 89 K/mm3 (150-450); RBC Distribution Width CV 19.9 % (11.6-14.6); RBC Distribution Width SD 65.2 fl (35.1-43.9); Red Blood Count 3.01 M/mm3 (4.6-6.2)
[2019-02-13 06:18] LABS: Anion Gap 5 (5-15); BUN 33 mg/dL (7-18); BUN/Creat Ratio 27.7 RATIO (10-20); Calcium,Total 8.2 mg/dL (8.5-10.1); Chloride 108 mmol/L (98-107); Creatinine, Serum 1.19 mg/dL (0.70-1.30); EST Glomerular Filtration Rate 64 mL/min (>60); Est Glom Filt Rate - Afr Amer 78 mL/min (>60); Estimated Creatinine Clearance 57.35 ml/min; Glucose 107 mg/dL (74-106); Potassium 4.3 mmol/L (3.5-5.1); Sodium Level 139 mmol/L (136-145)
[2019-02-13 06:58] LABS: Differential Indicated SCAN CRITERIA MET
[2019-02-13 07:09] LABS: Differential Comment SCANNED
[2019-02-13] MEDS: Metoprolol Tartrate 50 MG Tablet PO (09:08)
[2019-02-13] MEDS: Sertraline 50 MG Tablet 150 MG PO (09:09)
[2019-02-13 09:54] LABS: Vitamin B12 641 pg/mL (211-911); Vitamin D,25 Hydroxy 32.5 ng/mL (29.95-100.01)
--- NOTE | 2019-02-13 10:31 | DCINST_ITS ---
- Discharge Diagnoses Current Active Problems: Current Active and Chronic Problems Hypoxia (Acute) Acute on chronic anemia (Acute) Chronic anemia (Chronic) Depression (Chronic) Hyperlipidemia (Chronic) Status post coronary artery bypass graft (Chronic) Coronary artery disease (Chronic) Congestive heart failure (CHF) (Chronic) High output heart failure. Skin tear of elbow without complication (Acute) You will use the following diet at home:: Cardiac Your food should be the consistency of: Regular Discharge Activity: May Not Drive Call your doctor if you observe: Fever of 101 or Higher, Inability to urinate, Inability to have a bowel movement, Shortness of breath, Dizziness, Fainting spells, Chest pain, Increased palpitations (irregular heartbeat) Additional Instructions: F/U [facility] in [place] IN 2 WEEKS. Hold aspirin for about 1 week. Repeat CBC prior to resumption. Probably does not need Plavix as in-stent more than a year ago. Check with PCP. Allergies/Adverse Reactions: Allergies No Known Allergies Allergy (Verified 01/15/19 19:54) Medications to take at Discharge Acetaminophen 325 mg PO Q6H PRN PRN 07/22/18 Atorvastatin Calcium 20 mg PO QHS 07/22/18 Cholecalciferol (Vitamin D3) [Vitamin D3] 2,000 unit PO DAILY 07/22/18 Gabapentin [Neurontin] 300 mg PO QHS 07/22/18 Metoprolol Tartrate [Lopressor (beta krystina)] 50 mg PO BID 07/22/18 Sertraline HCl 150 mg PO DAILY 07/22/18 traZODone [Desyrel] 25 mg PO QHS PRN 07/22/18 Epoetin Esteban-Epbx [Retacrit] 40,000 unit IJ UD 12/14/18 Torsemide 20 mg PO BID 02/12/19 Aspirin [Adult Aspirin Regimen] 81 mg PO DAILY #0 02/13/19 Clopidogrel Bisulfate [Plavix] 75 mg PO DAILY #0 02/13/19 Guaifenesin [Mucinex] 1,200 mg PO BID #14 tab 02/13/19 The following prescriptions were given: Guaifenesin [Mucinex] 1,200 mg PO BID #14 tab Transmission Status: Pending to [facility] - Please follow up with your Primary Care Physician in: in 1-2 week Test Results: Test results from this visit will be discussed in further detail at your follow- up appointment, if applicable. Need PFT evaluation for chr smoker to R/O COPD
--- NOTE | 2019-02-13 10:34 | NURSING ---
wound photo: left elbow
--- NOTE | 2019-02-13 10:40 | NURSING ---
wound photo: left hip
--- NOTE | 2019-02-13 10:40 | NURSING ---
wound photo: left arm
--- NOTE | 2019-02-13 11:00 | CASEMGMT ---
Addendum entered by Aisha Castillo 02/13/19 14:23: This RN CM did receive a call back from BERLIN Manzanares at [facility], and she is updated on all at this time. She is agreeable to [facility] referral for pt and would like [facility] to notify her of decision with pt at that time. She also states that pt cannot have [facility] oxygen if he is still going to smoke and pt had told this RN CM that he is not planning on quitting at this time. She states that they have offered multiple resources/equipment to pt in the recent past and he had not been agreeable at that time. Leighton's contact info provided to Dee at [facility] hospice by Jens SLADE at this time. SStaten RN CM Original Note: When pt was up with OT, his pulse ox with ambulation was 83% on room air at that time and it took 3 liters to get pt back up to 92%. This RN CM to room to speak with pt regarding home oxygen need at this time and pt voices understanding of pulse ox and oxygen need at this time. Pt then politely declines home oxygen at this time, stating 'Yes, I may want to do something about it but not at this time.' Pt states that he is not willing to quit smoking at this time and pt's only coverage for home oxygen would be through the [facility] and they will not supply the oxygen unless pt quits smoking. Pt then states that his caregiver also smokes and he does not want to lose him either. Pt does make comments to this RN CM about having 'made amends with God and asked for forgiveness.' Pt also states, ' I know that the camping trip is about over and I need to pack up the tent and head home.' This RN CM did mention Hospice referral to pt at this time and pt is agreeable to Hospice coming to his home to speak with him. Pt states is on Epogen injections at the OR in [place] and pt questions why he needs these, stating, 'I know what I have(myelodysplastic syndrome) is an incurable disease and I know that getting those is going to really help anything.' This RN CM did place a call to shawn Manzanares's BERLIN at the [facility], and left a message for her to call this RN CM regarding hospice referral. Pt does have [facility] and is willing to have referral faxed to [facility] at this time but pt states that he would still like to go home at this time and have Hospice come meet with him there. Dr. Ann aware at this time that pt declines home oxygen and that is willing to speak with hospice. Referral faxed to [facility] per pt preference by Jens SLADE at this time. This RN CM did offer HHC to pt also and pt declined to HHC at this time. Pt states that he is trying to find a 2 BR apt so that his caregiver can live with him. Emotional support provided throughout the 40-45 minute conversation with pt by this RN CM. SStbethany CARDENAS CM
[2019-02-13] MEDS: guaiFENesin 1,200 MG Tablet 1200 MG PO (11:57)
[2019-02-13 12:05] LABS: Pathologist Review Reviewed
[2019-02-13 12:09] LABS: Pathologist Review Reviewed
--- NOTE | 2019-02-13 12:13 | PHA.DC.MC ---
Pharmacy Service has performed discharge medication reconciliation and counseling for this patient. 1. GUAIFENESIN 1200MG PO BID X 7 DAYS The patient's discharge medication list was reviewed for discrepancies and discrepancies were resolved. Home Medications Acetaminophen 325 mg PO Q6H PRN PRN 07/22/18 Atorvastatin Calcium 20 mg PO QHS 07/22/18 Cholecalciferol (Vitamin D3) [Vitamin D3] 2,000 unit PO DAILY 07/22/18 Gabapentin [Neurontin] 300 mg PO QHS 07/22/18 Metoprolol Tartrate [Lopressor (beta krystina)] 50 mg PO BID 07/22/18 Sertraline HCl 150 mg PO DAILY 07/22/18 traZODone [Desyrel] 25 mg PO QHS PRN 07/22/18 Epoetin Esteban-Epbx [Retacrit] 40,000 unit IJ UD 12/14/18 Torsemide 20 mg PO BID 02/12/19 Aspirin [Adult Aspirin Regimen] 81 mg PO DAILY #0 02/13/19 Clopidogrel Bisulfate [Plavix] 75 mg PO DAILY #0 02/13/19 Guaifenesin [Mucinex] 1,200 mg PO BID #14 tab 02/13/19 The patient was counseled on the following discharge medications and changes in medications for homegoing were reviewed. The Reason for Use, instructions for use, and potential side effects were reviewed for all new medications. The patient's questions regarding all of their medications were answered. The patient was able to verbally demonstrate an understanding of their discharge medications.
--- NOTE | 2019-02-13 12:59 | PN_ITS ---
Patient Problems: Active and Suspected Problems Hypoxia (Acute) Acute on chronic anemia (Acute) Skin tear of elbow without complication (Acute) Subjective: The patient has chronic shortness of breath, gets worse on exertion. Chronic cough with chest congestion unable to expectorate sputum Pulse ox 83% on room air, 93% on 3 L of oxygen on ambulation. Patient never had PFT. Was not on oxygen before. Vitals/I&O's: Vital Signs Temp Pulse Resp BP Pulse Ox 97.8 F 76 16 108/47 L 93 02/13/19 09:10 02/13/19 11:17 02/13/19 09:10 02/13/19 09:10 02/13/19 12:44 Oxygen Flow Rate (L/min) [ 3 AMBULATION with Oxygen] Oxygen Flow Rate (L/min) [ 3 AMBULATING on Room Air] Oxygen Flow Rate (L/min) [At 0 REST on Room Air] Oxygen Flow Rate (L/min) 2 Oxygen Delivery Method Nasal Cannula Weight: 154 lb 12.232 oz Body Mass Index (BMI) 22.8 Intake and Output for Last 24 Hours 02/11/19 02/12/19 02/13/19 23:59 23:59 23:59 Intake Total 1780 / 1780 1060 / 1110 900 / 900 Output Total 1550 / 1550 925 / 1225 700 / 700 Balance 230 / 230 135 / -115 200 / 200 General: Alert, Oriented x3, Cooperative, - - Also weak and short of breath. HEENT: Atraumatic, PERRLA, EOMI, Normocephalic Neck: Supple, No JVD, Negative Carotid Bruits Lungs: Diminished - Air entry severely diminished., Rhonchi, Short of Breath, Wheezes Cardiovascular: Regular rate, Regular Rhythm, Normal S1, Normal S2, No murmurs Abdomen: Bowel Sounds Present, Soft, Non Tender, Non-Distended Extremities: No edema, Capillary Refill Less than 3 Seconds Skin: No rashes, No breakdown Musculoskeletal: No Tenderness to Palpation of Joints or Extremities, Arthritic Changes, Muscle Wasting Neurological: Cranial nerves II-XII grossly intact, Deep Tendon Reflexes 2+/4 and Symmetrical, Neuro grossly intact Psych/Mental Status: Normal Affect, Appropriate Laboratory Results 02/10/19 20:55: Diff Path Review Reviewed 02/11/19 06:00: Vitamin B12 641, Vitamin D 25-Hydroxy 32.5 02/12/19 14:10: Hgb 9.3 L, Hct 29.7 L 02/13/19 05:25: WBC 3.0 L, RBC 3.01 L, Hgb 8.6 L, Hct 28.0 L, MCV 93.0, MCH 28.6, MCHC 30.7 L, RDW Std Deviation 65.2 H, RDW Coeff of Kriss 19.9 H, Plt Count 89 L, MPV 10.0, Immature Gran % (Auto) 1.700 H, Neut % (Auto) 67.7, Lymph % (Auto) 11.6 L, [place] % (Auto) 17.3 H, Eos % (Auto) 1.0, Baso % (Auto) 0.7, Absolute Neuts (auto) 2.0, Absolute Lymphs (auto) 0.35 L, Nucleated RBC % 0, Differential Comment SCANNED, Diff Path Review Reviewed 02/13/19 05:25: Sodium 139, Potassium 4.3, Chloride 108 H, Carbon Dioxide 26.0, Anion Gap 5, BUN 33 H, Creatinine 1.19, Estim Creat Clear Calc 57.35, Est GFR (MDRD) Af Amer 78, Est GFR (MDRD) Non-Af 64, BUN/Creatinine Ratio 27.7 H, Glucose 107 H, Calcium 8.2 L Current Medications Acetaminophen (Tylenol) 650 mg PO Q6H PRN PRN PRN Reason: Mild Pain (1-3)/Temp > 100.7 F Albuterol/Ipratropium (Duoneb) 3 ml INHALATION Q4H.RT [facility] Cholecalciferol (Vitamin D) 2,000 unit PO DAILY [facility] Last Admin: 02/13/19 09:09 Dose: 2,000 unit Documented by: Dextrose (D50w Syringe) 0 gm IV X1 PRN; Protocol PRN Reason: Hypoglycemia Gabapentin (Neurontin) 300 mg PO QHS [facility] Last Admin: 02/12/19 20:31 Dose: 300 mg Documented by: Glucagon () 1 mg IM .X1 PRN PRN Reason: Hypoglycemia Guaifenesin (Mucinex) 1,200 mg PO BID [facility] Last Admin: 02/13/19 11:57 Dose: 1,200 mg Documented by: Metoprolol Tartrate (Lopressor (Beta Maria Esther)) 50 mg PO BID [facility] Last Admin: 02/13/19 09:08 Dose: 50 mg Documented by: Nutritional Formula (Lactose Free) (Ensure Enlive) 120 ml PO 4X/DAY [facility] Last Admin: 02/13/19 09:08 Dose: 120 ml Documented by: Ondansetron HCl (Zofran) 4 mg IV Q8H PRN PRN PRN Reason: NAUSEA/VOMITING Last Admin: 02/11/19 08:27 Dose: 4 mg Documented by: Sertraline HCl (Zoloft) 150 mg PO DAILY [facility] Last Admin: 02/13/19 09:09 Dose: 150 mg Documented by: Sodium Chloride () 5 - 15 ml IV UD PRN PRN Reason: SALINE FLUSH Last Admin: 02/12/19 09:18 Dose: 10 ml Documented by: Trazodone HCl (Desyrel) 25 mg PO QHS [facility] Last Admin: 02/12/19 20:30 Dose: 25 mg Documented by: STROKE Vital Signs/Narrative: Vital Signs Temp Pulse Resp BP Pulse Ox Pulse Ox Pulse Ox 02/13/19 12:44 93 02/13/19 11:29 93 93 02/13/19 11:17 76 02/13/19 09:10 97.8 F 75 16 108/47 L 97 02/13/19 09:08 74 Pulse Ox 02/13/19 12:44 02/13/19 11:29 83 02/13/19 11:17 02/13/19 09:10 02/13/19 09:08 Medical Necessity - Tobacco Use Smoking Status: Current every day smoker Tobacco Use: Cigarettes Assessment/Plan All Active Problems Hypoxia (Acute) Acute on chronic anemia (Acute) Skin tear of elbow without complication (Acute) This is a 68 years old male patient presented to the emergency room because of fall, epistaxis, shortness of breath and blurry vision, patient knew that he is due for transfusion because of anemia, found to have acute on chronic anemia in context of history of myelodysplastic syndrome and also found to have hypoxia and left forearm abrasion/skin tear. #1 acute on chronic symptomatic anemia: Received a total of 3 units of packed RBCs. Today's hemoglobin is 8.4 g/dL. Patient symptoms improved, has no more epistaxis. He is requiring oxygen up to 3 L, other vital signs are stable. He had history of myelodysplastic syndrome with recurrent anemia requiring frequent blood transfusions and he is on Epogen injections. This anemia is likely because of MDS in addition to epistaxis. He does have chronic thrombocytopenia which is stable. INR 1.4. Plan: Repeat H&H at 2 PM today, transfuse if hemo globin less than 8 g/dL, repeat CBC tomorrow morning. #2 Possible undiagnosed but clinical pneumonia with chronic respiratory insufficiency with hypoxia: Patient was smoking 2-1/2 packs cigarettes most of his life, started in teenage and recently cut down about 5 cigarettes daily. Patient has chronic cough more than 6 months along with chest congestion, rhonchi, chronic shortness of breath consistent with clinical diagnosis of COPD. Patient never had PFT as he stated. He follows [facility]. It seems his shortness of breath is secondary to anemia and also COPD. Air entry is very diminished. Patient is 83% on room air at rest, 93% on ambulation with oxygen. DuoNeb every 4 hourly. Chest x-ray reviewed and shows minimal pulmonary vascular congestion at the time of admission. Patient on torsemide 20 mg twice daily. Currently blood pressure is on lower side 108/47. Decrease the torsemide to 10 mg twice daily with holding parameters. #3 frequent falls/skin abrasion/tear of the left forehead: CT scan brain and CT scan cervical spine were unremarkable, no fractures or intracranial bleed. He does have left forearm skin abrasion/tear. Wound care nurse consulted. #4 myelodysplastic syndrome: Currently is not on any treatment. He follows up with oncology at the [place]. #5 CAD status post CABG and stents: Patient denies any chest pain. Stable. Aspirin and Plavix held. Continue statins and beta-blockers. #6 chronic congestive heart failure, unspecified: Stable at this time, compensated. Continue beta-blockers, resume Lasix as patient mentioned that he takes Lasix at home. Patient is not on MARISELA inhibitors. #7 hyperlipidemia: Continue statins. #8 depression: Continue Zoloft and trazodone. #9 DVT prophylaxis: SCDs. #10 CODE STATUS: DNR CCA. Patient does not want oxygen at home and is refusing for that. Patient also does not want to live longer as he is tired of constant transfusion dependent anemia with no cure. He says if time comes he wants to go. Palliative care consulted. Code Visit Inpatient E&M: 75718 Subs Hosp L2
--- NOTE | 2019-02-13 13:34 | CASEMGMT ---
RONALD KELLEY completed assessment with patient. During her conversation Hospice was brought up. Patient and physician agree on a referral to [facility]. BERLIN called Dee at Hospice with referral as well as faxed over information. RONALD KELLEY updated patient letting him know Hospice will call him to set up a time to meet. Vonnie KIMBALL MSW
--- NOTE | 2019-02-13 14:40 | CASEMGMT ---
Hospice was having a hard time getting a hold of patient. SW went to patient's room and an appt was scheduled for tomorrow at 9am at patient's home. Plan: d/c home with [facility] meeting 02-14 at 9a. Vonnie KIMBALL MSW
--- NOTE | 2019-02-13 14:42 | PCM.DC.SUM ---
Discharge Date and Diagnosis - Problem List Patient Problems: Active and Suspected Problems Hypoxia (Acute) Acute on chronic anemia (Acute) Skin tear of elbow without complication (Acute) Date of Admission: 02/10/19 Date of Discharge: 02/13/19 - Primary Discharge Diagnosis Active and Suspected Problems Hypoxia (Acute) Acute on chronic anemia (Acute) Skin tear of elbow without complication (Acute) - Secondary Discharge Diagnosis Chronic Problems Chronic anemia (Chronic) Depression (Chronic) Hyperlipidemia (Chronic) Status post coronary artery bypass graft (Chronic) Coronary artery disease (Chronic) Congestive heart failure (CHF) (Chronic) High output heart failure. Epistaxis (Chronic) MDS (myelodysplastic syndrome) (Chronic) Hospital Course and Treatment Consultations 02/10/19 23:43 Consult: Onc/Wound/labor relations consultant Routine Comment: Reason for Consult:: skin tear on bilateral extremities Operations: None Summary of Care Provided: The patient is a 68 year old M who was admitted to the emergency room for shortness of breath, blurry vision, fall with small epistaxis. He has transfusion dependent myelodysplastic syndrome and found to be hypoxic and left forearm abrasion/skin tear. 1. Patient has acute anemia on chronic anemia secondary to myelodysplastic syndrome. 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 Patient was admitted in PCU and transfused 3 units of PRBC. Hemoglobin 8.4g%. Patient is tired and frustrated of regular PRBC transfusion and Epogen and was given told by [facility] that there is no treatment for his wellness back syndrome. Patient is DNR CC arrest and wants hospice care. Hospice was consulted and is scheduled for home hospice appointment tomorrow. He does have chronic thrombocytopenia which is stable, last 1 89,000. INR 1.4. Pancytopenia, WBC count 3000. 2. Possible undiagnosed but clinical pneumonia with chronic respiratory insufficiency with hypoxia: Patient was smoking 2-1/2 packs cigarettes most of his life, started in teenage and recently cut down about 5 cigarettes daily. Patient has chronic cough more than 6 months along with chest congestion, rhonchi, chronic shortness of breath consistent with clinical diagnosis of COPD. Patient never had PFT as he stated. He follows [facility]. It seems his shortness of breath is secondary to anemia and also COPD. Patient is 83% on room air at rest, 93% on ambulation with oxygen. DuoNeb every 4 hourly. Chest x-ray reviewed and shows minimal pulmonary vascular congestion at the time of admission. Patient on torsemide 20 mg twice daily. Currently blood pressure is on lower side 108/47. Decrease the torsemide to 10 mg twice daily with holding parameters. 3. Epistaxis: I think epistaxis was not significant to account for his acute anemia. He fell down while coming out from the pain and a small amount of epistaxis. Other comorbidities include frequent fall with a skin abrasion tear possible secondary to weakness and dizziness, coronary artery status post CABG and stent, chronic heart failure, dyslipidemia and depression. Advanced care patient is DNR CC arrest. He wants palliative care/hospice care. As mentioned above patient is now under home hospice care. Discharge medication reconciliation done. Discharge follow-up instructions completed. Discharge process discussed with the patient and all questions were answered to patient's satisfaction.. Total time spent, exact 35 minutes on discharge meds reconciliation, examination, review of imaging and blood test and discussion with the patient on follow-up instructions. Patient Problems: Active and Suspected Problems Hypoxia (Acute) Acute on chronic anemia (Acute) Skin tear of elbow without complication (Acute) Subjective: Please see progress note of today with additional points as mentioned below. Hospice was consulted as patient refusing oxygen. He does not want to wear oxygen and does not want to leave further. Hospice is going to see him tomorrow at home - Physical Exam Vital Signs Temp Pulse Resp BP Pulse Ox 97.8 F 75 16 108/47 L 97 02/13/19 09:10 02/13/19 09:10 02/13/19 09:10 02/13/19 09:10 02/13/19 09:10 Oxygen Flow Rate (L/min) 2 Oxygen Delivery Method Nasal Cannula Weight: 154 lb 12.232 oz Body Mass Index (BMI) 22.8 Intake and Output for Last 24 Hours 02/11/19 02/12/19 02/13/19 23:59 23:59 23:59 Intake Total 1780 / 1780 1060 / 1110 100 / 100 Output Total 1550 / 1550 925 / 1225 500 / 500 Balance 230 / 230 135 / -115 -400 / -400 Laboratory Tests Past 24 Hrs 02/11/19 02/12/19 02/13/19 06:00 14:10 05:25 WBC 3.0 L RBC 3.01 L Hgb 9.3 L 8.6 L Hct 29.7 L 28.0 L MCV 93.0 MCH 28.6 MCHC 30.7 L RDW Std Deviation 65.2 H RDW Coeff of Kriss 19.9 H Plt Count 89 L MPV 10.0 Immature Gran % (Auto) 1.700 H Neut % (Auto) 67.7 Lymph % (Auto) 11.6 L [place] % (Auto) 17.3 H Eos % (Auto) 1.0 Baso % (Auto) 0.7 Absolute Neuts (auto) 2.0 Absolute Lymphs (auto) 0.35 L Nucleated RBC % 0 Differential Comment SCANNED Diff Path Review May foll Sodium Potassium Chloride Carbon Dioxide Anion Gap BUN Creatinine Estim Creat Clear Calc Est GFR (MDRD) Af Amer Est GFR (MDRD) Non-Af BUN/Creatinine Ratio Glucose Calcium Vitamin B12 641 Vitamin D 25-Hydroxy 32.5 02/13/19 05:25 WBC RBC Hgb Hct MCV MCH MCHC RDW Std Deviation RDW Coeff of Kriss Plt Count MPV Immature Gran % (Auto) Neut % (Auto) Lymph % (Auto) [place] % (Auto) Eos % (Auto) Baso % (Auto) Absolute Neuts (auto) Absolute Lymphs (auto) Nucleated RBC % Differential Comment Diff Path Review Sodium 139 Potassium 4.3 Chloride 108 H Carbon Dioxide 26.0 Anion Gap 5 BUN 33 H Creatinine 1.19 Estim Creat Clear Calc 57.35 Est GFR (MDRD) Af Amer 78 Est GFR (MDRD) Non-Af 64 BUN/Creatinine Ratio 27.7 H Glucose 107 H Calcium 8.2 L Vitamin B12 Vitamin D 25-Hydroxy Discharge Activity: May Not Drive Call your doctor if you observe: Fever of 101 or Higher, Inability to urinate, Inability to have a bowel movement, Shortness of breath, Dizziness, Fainting spells, Chest pain, Increased palpitations (irregular heartbeat) Home Medications: Medications to take at Discharge Acetaminophen 325 mg PO Q6H PRN PRN 07/22/18 Atorvastatin Calcium 20 mg PO QHS 07/22/18 Cholecalciferol (Vitamin D3) [Vitamin D3] 2,000 unit PO DAILY 07/22/18 Gabapentin [Neurontin] 300 mg PO QHS 07/22/18 Metoprolol Tartrate [Lopressor (beta krystina)] 50 mg PO BID 07/22/18 Sertraline HCl 150 mg PO DAILY 07/22/18 traZODone [Desyrel] 25 mg PO QHS PRN 07/22/18 Epoetin Esteban-Epbx [Retacrit] 40,000 unit IJ UD 12/14/18 Torsemide 20 mg PO BID 02/12/19 Aspirin [Adult Aspirin Regimen] 81 mg PO DAILY #0 02/13/19 Clopidogrel Bisulfate [Plavix] 75 mg PO DAILY #0 02/13/19 Guaifenesin [Mucinex] 1,200 mg PO BID #14 tab 02/13/19 Following Prescrptions Were Given to Patient: Guaifenesin [Mucinex] 1,200 mg PO BID #14 tab Transmission Status: Received by [facility]Primary [facility]] - Please follow up with your Primary Care Physician in: in 1-2 week Medical Necessity - Tobacco Use Smoking Status: Current every day smoker Tobacco Use: Cigarettes Meaningful Use Info Meaningful Use Diagnoses (Choose all that apply): None applicable Code Visit Please do not bill progress note of today, 02/13/2019 Inpatient E&M: 24027 Disch Hosp
[2019-02-13] MEDS: Ipratropium/Albuterol Sulfate 3 ML AMPUL.NEB INHALATION (14:51)
== END 2019-02-13 16:01 | disposition home or self-care (01) | DRG 812 ==
LOC: ED 21:12 → PCU 23:19
PROVIDERS: Hospitalist; Admitting Provider Hospitalist; Emergency Provider Emergency Medicine; Visit Provider Internal Medicine
DX: D46.9 Myelodysplastic syndrome, unspecified (principal); D63.0 Anemia in neoplastic disease; R09.02 Hypoxemia; R06.89 Other abnormalities of breathing; Z95.1 Presence of aortocoronary bypass graft; Z95.5 Presence of coronary angioplasty implant and graft; I11.0 Hypertensive heart disease with heart failure; S51.012A Laceration without foreign body of left elbow, initial encounter; W19.XXXA Unspecified fall, initial encounter; Z23 Encounter for immunization; E78.5 Hyperlipidemia, unspecified; Z66 Do not resuscitate; F32.9 Major depressive disorder, single episode, unspecified; I25.10 Atherosclerotic heart disease of native coronary artery without angina pectoris; R04.0 Epistaxis; F17.210 Nicotine dependence, cigarettes, uncomplicated; I50.83 High output heart failure
CPT/HCPCS: 36415; 70450; 71045; 72125; 80048; 81001; 82306; 82607; 84134; 85014; 85018; 85025; 85610; 85730; 86850; 86900; 86901; 86920; 86922; 90715; 93005; 94640; 94667; 97110; 97162; 97166; 97530; 97802; 99285; 99406; J7040; P9016; A4216; J1940; J2405; J3490

== ENCOUNTER 2019-04-02 08:02 | Inpatient (IN) | payer OTHER, MEDICARE, SELFPAY ==
[2019-02-11 00:03] VITALS: BMI 22.8
[2019-04-02] VITALS (22 sets, daily range): BP systolic 87–127; BP diastolic 39–63; PULSE 83–102; RESP 15–28; TEMP 36.2–37.2; O2SAT 89–100; BMI 24.3; BMI 22.7
[2019-04-02] MEDS: 0.9% Normal Saline 1,000 ML 1000 ML IV (08:47)
[2019-04-02] MEDS: Oxymetazoline 0.05% 1 SPRAY SPRAY.BTL 2 SPRAY NASAL (08:48)
[2019-04-02 09:03] LABS: Mean Corpuscular Hgb 27.6 pg (27.0-32.0); Mean Corpuscular Volume 91.9 fL (80-94); Mean Platelet Vol. 9.6 fl (6.2-12.0); POSITIVE COUNT YES; POSITIVE MORPHOLOGY YES; Platelet Count 81 K/mm3 (150-450); RBC Distribution Width CV 23.2 % (11.6-14.6); RBC Distribution Width SD 75.5 fl (35.1-43.9); Red Blood Count 1.85 M/mm3 (4.6-6.2); White Blood Count 3.3 K/mm3 (4.4-11.0)
[2019-04-02 09:05] LABS: Hemoglobin 5.1 g/dL (13.0-16.5)
[2019-04-02 09:08] LABS: International Normalized Ratio 1.7; Prothrombin Time (Protime)PT. 19.4 SECONDS (11.7-14.9)
[2019-04-02 09:14] LABS: BUN 23 mg/dL (7-18); Creatinine, Serum 1.39 mg/dL (0.70-1.30); EST Glomerular Filtration Rate 54 mL/min (>60); Estimated Creatinine Clearance 48.74 ml/min; Glucose 165 mg/dL (74-106)
[2019-04-02 09:15] LABS: Anion Gap 5 (5-15); BUN/Creat Ratio 16.5 RATIO (10-20); Calcium,Total 7.9 mg/dL (8.5-10.1); Chloride 112 mmol/L (98-107); Est Glom Filt Rate - Afr Amer 65 mL/min (>60); Potassium 4.9 mmol/L (3.5-5.1); Sodium Level 142 mmol/L (136-145)
--- NOTE | 2019-04-02 09:20 | ED.VIS.GEN ---
History of Present Illness Chief Complaint: Nosebleed Informant: Patient Onset: Today Context: Sudden Onset Timing: Continuous Narrative: Patient is a 69-year-old male with history of anemia and myelodysplastic syndrome as well as atrial fibrillation on Coumadin presenting with a nosebleed. Patient states he blew his nose last night started bleeding. Blood all throughout the night. He had large clots. Patient tried to clamp his nose but it did not help. He finally called 911 for further assistance. Patient denies any other complaints at this time. He states he does have a history of nosebleeds. He denies any associated chest pain, shortness of breath or difficulty breathing. Past Medical History - Allergies and Home Meds Allergies/Adverse Reactions: Allergies No Known Allergies Allergy (Verified 04/02/19 08:09) Past Medical History: - - Myelodysplastic syndrome, atrial fibrillation Surgical History: coronary bypass surgery, - - Aortic valve replacement Smoking Status: Current every day smoker - Family History Maternal Family History: Reports: - - carotid artery disease Paternal Family History: Reports: Cancer - Lung Review of Systems General: Denies: Chills, Fever, Sweats Eyes: Denies: Visual changes - bilaterally, Diplopia ENT: Reports: - - Epistaxis. Denies: Rhinorrhea, Sore throat Cardiovascular: Denies: Chest pain, Palpitations Respiratory: Denies: Dyspnea, Cough, Dyspnea on exertion Gastrointestinal: Denies: Abdominal pain, Nausea, Vomiting, Diarrhea, Melena, Hematochezia Genitourinary: Denies: Dysuria, Hematuria, Frequency Musculoskeletal: Denies: Back pain, Extremity Pain Skin: Denies: Rash, Wounds Neurological: Denies: Headache, Weakness, Numbness Hematologic: Reports: Easy bruising, Easy bleeding Physical Exam Vital Signs/Narrative: Vital Signs Temp Pulse Resp BP Pulse Ox 04/02/19 09:12 96 27 H 96/58 L 04/02/19 08:29 91 28 H 103/63 91 04/02/19 08:05 97.3 F L 102 H 28 H 87/42 L 89 Inital Vital Signs reviewed: Yes General: Well nourished, Well developed, No Acute Distress Head: Normocephalic, Atraumatic Eyes: Perrl, EOMI, Pale conjunctiva ENT: Moist mucous membranes, No rhinorrhea, TM's clear, - - Brisk epistaxis from the right nares with large clots on both sides present, no obvious source of bleeding is visualized. No active bleeding noted in the posterior pharynx. Neck: Supple, Nontender Cardiovascular: Regular rate, No murmurs, Irregular Respiratory: No distress, CTA bilaterally, Chest nontender Abdomen: Soft, Nontender, Nondistended, Normal bowel sounds Back: Nontender, Normal Inspection Extremities: Nontender, No edema Skin: No rash, Pallor Neurological: Alert, Oriented x3, Cranial nerves II-XII grossly intact, Normal Strength, Normal Sensation Psychological: Normal affect, Normal Mood Diagnostic/Tx/Re-eval Laboratory Data 04/02/19 04/02/19 04/02/19 08:45 08:45 08:45 WBC 3.3 L RBC 1.85 L Hgb 5.1 L* Hct 17.0 L MCV 91.9 MCH 27.6 MCHC 30.0 L RDW Std Deviation 75.5 H RDW Coeff of Kriss 23.2 H Plt Count 81 L MPV 9.6 Differential Comment SCANNED Diff Path Review May foll PT 19.4 H INR 1.7 Sodium 142 Potassium 4.9 Chloride 112 H Carbon Dioxide 25.0 Anion Gap 5 BUN 23 H Creatinine 1.39 H Estim Creat Clear Calc 48.74 Est GFR (MDRD) Af Amer 65 Est GFR (MDRD) Non-Af 54 L BUN/Creatinine Ratio 16.5 Glucose 165 H Calcium 7.9 L Blood Type Antibody Screen Crossmatch 04/02/19 04/02/19 08:45 08:45 WBC RBC Hgb Hct MCV MCH MCHC RDW Std Deviation RDW Coeff of Kriss Plt Count MPV Differential Comment Diff Path Review PT INR Sodium Potassium Chloride Carbon Dioxide Anion Gap BUN Creatinine Estim Creat Clear Calc Est GFR (MDRD) Af Amer Est GFR (MDRD) Non-Af BUN/Creatinine Ratio Glucose Calcium Blood Type B POSITIVE Antibody Screen NEGATIVE Crossmatch See Detail - Rhythm Strip Rhythm Strip: Sinus Rhythm Rate: 96 Ectopy: None - EKG Initial EKG Interpretation: Sinus Rhythm, - - Normal sinus rhythm at a rate of 96 Incomplete left bundle branch block. NC interval 184 QRS 118 QTc [address] depressions in inferior leads as well as V4 through V6 No reciprocal ST segment elevations No change compared to prior EKG on 02/11/2019 - Medical Decision Making Patient is evaluated for epistaxis. Patient seems to have a significant amount of bleeding. Initially patient is mildly tachycardic and hypotensive. He has a large clots that are coming out of his nose. Patient started with bolus of fluids. Bleeding is controlled with Afrin and packing. I placed a 7.5 cm Rhino Rocket in the right nares. On reevaluation patient had no further anterior bleeding and no signs of blood in his pharynx. Patient is significantly anemic with a hemoglobin of 5.1. Patient is also mildly thrombopenia. Likely his anemia is compounded by his bleeding all night from his nose. Thankfully, patient is subtherapeutic for his Coumadin level with an INR of 1.7. Patient will be transfused 2 units and admitted for further treatment of his acute anemia. He remains hemodynamically stable after the initial fluid bolus. He stable for the general medical floor at time of disposition. He is agreeable with this plan. Procedures Procedure(s): Epistaxis management. Nose is cleared of all large clots. Afrin is sprayed into both nares. 7.5 Rhino Rocket was then placed into the right nares. It is inflated with 5 cc of air. Patient tolerated procedure reasonably well. No immediate complications noted. ED Disposition - Plan for ED Patient: Disposition: Acute Care Hospital [facility] Diagnosis: Epistaxis, Acute on chronic anemia, MDS (myelodysplastic syndrome), Pancytopenia
--- NOTE | 2019-04-02 09:21 | EKG12_ITS ---
Test Reason : INC HBG Blood Pressure : / mmHG Vent. Rate : 096 BPM Atrial Rate : 096 BPM P-R Int : 184 ms QRS Dur : 118 ms QT Int : 394 ms P-R-T Axes : 062 050 228 degrees QTc Int : 497 ms Normal sinus rhythm Incomplete left bundle branch block ST & T wave abnormality, consider inferolateral ischemia Prolonged QT Abnormal ECG Confirmed by GOMEZ CONROY, MATTHEW ([id number]), map editor CARLOS ROBERTS ([id number]) on 04/05/2019 11:36:38 AM Referred By: Arvind Ann Confirmed By:MATTHEW DYER MD
--- NOTE | 2019-04-02 09:21 | EKG12_ITS ---
Test Reason : INC HBG Blood Pressure : / mmHG Vent. Rate : 096 BPM Atrial Rate : 096 BPM P-R Int : 182 ms QRS Dur : 114 ms QT Int : 394 ms P-R-T Axes : 061 052 216 degrees QTc Int : 497 ms Normal sinus rhythm Incomplete left bundle branch block ST & T wave abnormality, consider inferolateral ischemia Prolonged QT Abnormal ECG Confirmed by GOMEZ CONROY, MATTHEW ([id number]), index editor CARLOS ROBERTS ([id number]) on 04/18/2019 11:53:14 AM Referred By: Arvind Ann Confirmed By:MATTHEW DYER MD
[2019-04-02 09:30] LABS: Differential Comment SCANNED; Scan Indicated on CBC? Y/N YES- FLAGS NOTED
--- NOTE | 2019-04-02 09:41 | NURSING ---
PCU EPISTAXIS, HYPOTENSION CINDY
[2019-04-02] MEDS: Lactated Ringers 1,000 ML 999 ML IV (10:27)
--- NOTE | 2019-04-02 10:29 | NURSING ---
PCU EPISTAXIS, HYPOTENSION CINDY
--- NOTE | 2019-04-02 11:56 | PCM.PN.HOSP ---
Vitals/I&O's: Vital Signs Temp Pulse Resp BP Pulse Ox 97.9 F 100 17 127/39 H 94 04/02/19 11:21 04/02/19 11:21 04/02/19 11:21 04/02/19 11:21 04/02/19 11:21 Oxygen Delivery Method Room Air Weight: 153 lb 14.122 oz Body Mass Index (BMI) 22.7 Intake and Output for Last 24 Hours 03/31/19 04/01/19 04/02/19 23:59 23:59 23:59 Intake Total 1000 / 1000 Balance 1000 / 1000 Laboratory Results 04/02/19 08:45: WBC 3.3 L, RBC 1.85 L, Hgb 5.1 L*, Hct 17.0 L, MCV 91.9, MCH 27.6, MCHC 30.0 L, RDW Std Deviation 75.5 H, RDW Coeff of Kriss 23.2 H, Plt Count 81 L, MPV 9.6, Differential Comment SCANNED, Diff Path Review August04/02/19 08:45: PT 19.4 H, INR 1.7 04/02/19 08:45: Sodium 142, Potassium 4.9, Chloride 112 H, Carbon Dioxide 25.0, Anion Gap 5, BUN 23 H, Creatinine 1.39 H, Estim Creat Clear Calc 48.74, Est GFR (MDRD) Af Amer 65, Est GFR (MDRD) Non-Af 54 L, BUN/Creatinine Ratio 16.5, Glucose 165 H, Calcium 7.9 L 04/02/19 08:45: Blood Type B POSITIVE, Antibody Screen NEGATIVE 04/02/19 08:45: Crossmatch See Detail Current Medications Sodium Chloride () 10 - 40 ml IV UD PRN PRN Reason: SALINE FLUSH STROKE Vital Signs/Narrative: Vital Signs Temp Pulse Resp BP Pulse Ox 04/02/19 11:21 97.9 F 100 17 127/39 H 94 04/02/19 10:32 93 21 H 93/39 L 04/02/19 09:12 96 27 H 96/58 L 04/02/19 08:29 91 28 H 103/63 91 04/02/19 08:05 97.3 F L 102 H 28 H 87/42 L 89 Medical Necessity - Tobacco Use Smoking Status: Current every day smoker Assessment/Plan All Active Problems Hypoxia (Acute) Acute on chronic anemia (Acute) Skin tear of elbow without complication (Acute)
--- NOTE | 2019-04-02 12:20 | PCM.HP.STD ---
Problem List (1) Acute on chronic anemia Status: Acute (2) Hypoxia Status: Inactive (3) Skin tear of elbow without complication Status: Inactive (4) Chronic anemia Status: Chronic (5) Congestive heart failure (CHF) Status: Chronic Comment: High output heart failure. (6) Coronary artery disease Status: Chronic (7) Depression Status: Chronic (8) Hyperlipidemia Status: Chronic (9) MDS (myelodysplastic syndrome) Status: Chronic (10) Status post coronary artery bypass graft Status: Chronic (11) Epistaxis Status: Acute History of Present Illness Date of Admission: 04/02/19 Chief Complaint: Epistaxis since yesterday with anemia The patient is a 69 year old M with multiple comorbidities including history of transfusion dependent anemia with myelodysplastic syndrome every 2 to 3 weeks, A. fib on Coumadin came to ER with epistaxis, blurry vision, nausea and hypotension. Patient blew his nose yesterday about 830 evening while watching football game. After that he started having anterior nosebleed. Patient blood throughout the night. He also states he had vomiting/hematemesis, brownish material 3 times since then. Patient is feeling very weak. Denies chest pain, shortness of breath, abdominal pain. Denies lower urinary tract symptoms or diarrhea. In ED, His blood pressure was 87/42, heart rate 102/min, pulse ox 89% on room air, respiratory rate 28/min. Basic blood work in ED shows H&H 5.1/17, WBC 3.3, platelet count 81,000. His baseline blood count stays between 8 to 9 g with PRBC transfusion every 2 to 3 weeks. INR 1.7. BUN/creatinine slightly elevated 23/1.39. He follows [employer] in [facility] and recently was transferred to [place]. Patient had 1 L of normal saline and 1 L of Ringer lactate. Most recent blood pressure is 127/39, heart rate 100. Patient had anterior nasal packing done in ED. Currently not bleeding. Past Medical History Past Medical History (Chronic Problems): Chronic Problems Chronic anemia (Chronic) Depression (Chronic) Hyperlipidemia (Chronic) Status post coronary artery bypass graft (Chronic) Coronary artery disease (Chronic) Congestive heart failure (CHF) (Chronic) High output heart failure. MDS (myelodysplastic syndrome) (Chronic) Allergies No Known Allergies Allergy (Verified 04/02/19 08:09) Home Medications: Ambulatory Orders Medication Instructions Recorded Acetaminophen 325 mg PO Q6H PRN PRN 07/22/18 Atorvastatin Calcium 20 mg PO QHS 07/22/18 Cholecalciferol (Vitamin D3) 2,000 unit PO DAILY 07/22/18 [Vitamin D3] Gabapentin [Neurontin] 300 mg PO QHS 07/22/18 Metoprolol Tartrate [Lopressor 50 mg PO BID 07/22/18 (beta krystina)] Sertraline HCl 150 mg PO DAILY 07/22/18 traZODone [Desyrel] 25 mg PO QHS PRN 07/22/18 Epoetin Esteban-Epbx [Retacrit] 40,000 unit IJ UD 12/14/18 Clopidogrel Bisulfate [Plavix] 75 mg PO DAILY #0 02/13/19 Surgical History: coronary bypass surgery, - - Aortic valve replacement Psychiatric History: No pertinent psych hx Smoking Status: Current every day smoker - *Family History Maternal History Items: - - carotid artery disease Paternal History Items: Cancer - Lung Review of Systems Constitutional: Reports: Malaise, Weakness, Fatigue. Denies: Chills, Fever Eyes: Reports: Blurred vision HEENT: Reports: Difficulty Hearing, Hard of Hearing. Denies: Head Aches, Sinus Congestion, Sinus Drainage Cardiovascular: Denies: Chest Pain, Chest Pressure, Chest Tightness, Palpitations Respiratory: Reports: Shortness of breath upon exertion. Denies: Cough, Shortness of breath at rest, Sputum production Gastrointestinal: Reports: Hematemesis, Vomiting. Denies: Abdominal Pain, Nausea, Melena Genitourinary: Reports: - - Denies hematuria. Denies: Dysuria, Frequency, Hematuria Musculoskeletal: Reports: Back Pain, Joint Pain. Denies: Joint Tenderness Skin: Denies: Rash, Wounds Neurological: Reports: Balance problems. Denies: Focal weakness, Numbness, Tingling Psychiatric: Denies: Anxiety, Depression, Homicidal Ideations, Suicidal Ideations Hematologic/ Lymphatic: Denies: Easy Bruising, Easy Bleeding VTE Information - Inpt Only VTE Present on Admission: No VTE Mechan Device Prophylaxis: SCD's Reason prophylaxis not ordered:: Medical Contraindication - Active bleeding with severe anemia Patient Problems: Active and Suspected Problems Epistaxis (Acute) - Physical Exam Vitals/I&O's: Vital Signs Temp Pulse Resp BP Pulse Ox 97.9 F 100 17 127/39 H 94 04/02/19 11:21 04/02/19 11:21 04/02/19 11:21 04/02/19 11:21 04/02/19 11:21 Oxygen Delivery Method Room Air Weight: 153 lb 14.122 oz Body Mass Index (BMI) 22.7 Intake and Output for Last 24 Hours 03/31/19 04/01/19 04/02/19 23:59 23:59 23:59 Intake Total 1999 Balance 1999 General: Alert, Oriented x3, Cooperative HEENT: Atraumatic, PERRLA, EOMI, Normocephalic Oral: Dry Mucosa Neck: Supple, No JVD, Negative Carotid Bruits Lungs: Clear to auscultation, No rhonchi, No wheeze, No rales, Diminished - Entry is diminished in bilateral lung bases. Cardiovascular: Regular rate, Regular Rhythm, Normal S1, Normal S2, No murmurs Abdomen: Bowel Sounds Present, Soft, Non Tender, Non-Distended Extremities: No edema, Capillary Refill Less than 3 Seconds Skin: No rashes, No breakdown Musculoskeletal: No Tenderness to Palpation of Joints or Extremities, Arthritic Changes Neurological: Cranial nerves II-XII grossly intact, Deep Tendon Reflexes 2+/4 and Symmetrical, Neuro grossly intact Psych/Mental Status: Normal Affect, Appropriate Laboratory Results 04/02/19 08:45: WBC 3.3 L, RBC 1.85 L, Hgb 5.1 L*, Hct 17.0 L, MCV 91.9, MCH 27.6, MCHC 30.0 L, RDW Std Deviation 75.5 H, RDW Coeff of Kriss 23.2 H, Plt Count 81 L, MPV 9.6, Differential Comment SCANNED, Diff Path Review August04/02/19 08:45: PT 19.4 H, INR 1.7 04/02/19 08:45: Sodium 142, Potassium 4.9, Chloride 112 H, Carbon Dioxide 25.0, Anion Gap 5, BUN 23 H, Creatinine 1.39 H, Estim Creat Clear Calc 48.74, Est GFR (MDRD) Af Amer 65, Est GFR (MDRD) Non-Af 54 L, BUN/Creatinine Ratio 16.5, Glucose 165 H, Calcium 7.9 L 04/02/19 08:45: Blood Type B POSITIVE, Antibody Screen NEGATIVE 04/02/19 08:45: Crossmatch See Detail Current Medications Sodium Chloride () 10 - 40 ml IV UD PRN PRN Reason: SALINE FLUSH Assessment/Plan All Active Problems Epistaxis (Acute) Acute on chronic anemia (Acute) The patient is a 69 year old M with multiple comorbidities including history of transfusion dependent anemia with myelodysplastic syndrome every 2 to 3 weeks, A. fib on Coumadin came to ER with epistaxis, blurry vision, nausea and hypotension. Patient blew his nose yesterday about 830 evening while watching football game. After that he started having anterior nosebleed. Patient blood throughout the night. He also states he had vomiting/hematemesis, brownish material 3 times since then. Patient is feeling very weak. Denies chest pain, shortness of breath, abdominal pain. Denies lower urinary tract symptoms or diarrhea. In ED, His blood pressure was 87/42, heart rate 102/min, pulse ox 89% on room air, respiratory rate 28/min. Basic blood work in ED shows H&H 5.1/17, WBC 3.3, platelet count 81,000. His baseline blood count stays between 8 to 9 g with PRBC transfusion every 2 to 3 weeks. INR 1.7. BUN/creatinine slightly elevated 23/1.39. He follows [employer] in [facility] and recently was transferred to [place]. Patient had 1 L of normal saline and 1 L of Ringer lactate. Most recent blood pressure is 127/39, heart rate 100. Patient had anterior nasal packing done in ED. Currently not bleeding. 1. Acute on chronic anemia secondary to acute blood loss with history of myelodysplastic anemia: Patient had epistaxis. Currently hypotension is resolved. 2 units of PRBC transfusion has been ordered with type and cross by ER physician. Follow-up post transfusion H&H and then every 8 hourly. No antiplatelet/antithrombotic agent. PPI twice daily as patient complained of hematemesis although he might have mistaken with hemoptysis 2. Coronary artery disease status post CABG and stent with chronic heart failure: Chest x-ray and twelve-lead EKG ordered. There is no chest x-ray done in ED. He has chest x-ray in January 2019 reported as mild pulmonary vascular congestion when he was admitted with acute on chronic anemia and chronic respiratory insufficiency. We will hold diuretic. Continue other cardiac medications except antiplatelet agent and antithrombotic agent. Patient does not have echo in our system. We will do echo tomorrow a.m. troponin and BNP ordered. 3. Possible undiagnosed COPD with chronic cough and chronic respiratory insufficiency: Patient pulse ox was 89% on room air in triage but currently 94% on room air. Bronchodilator PRN, incentive spirometry and chest physiotherapy ordered as bronchopulmonary hygiene.Patient was smoking 2-1/2 packs cigarettes most of his life, started in teenage and recently cut down about 5 cigarettes daily. 3. Dyslipidemia, anxiety and depression, weakness and history of frequent fall: Patient did not had fall recently in the last 2 to 3 days. PT OT ordered. Advanced care patient is DNR CC arrest. In earlier admission patient wanted palliative care/hospice care. It seems patient did not want hospice or palliative care now and has not followed after discharge. Currently will continue DNR CC arrest which he agreed. DVT prophylaxis bilateral SCDs. Laboratory Results 04/02/19 08:45: WBC 3.3 L, RBC 1.85 L, Hgb 5.1 L*, Hct 17.0 L, MCV 91.9, MCH 27.6, MCHC 30.0 L, RDW Std Deviation 75.5 H, RDW Coeff of Kriss 23.2 H, Plt Count 81 L, MPV 9.6, Differential Comment SCANNED, Diff Path Review August04/02/19 08:45: PT 19.4 H, INR 1.7 04/02/19 08:45: Sodium 142, Potassium 4.9, Chloride 112 H, Carbon Dioxide 25.0, Anion Gap 5, BUN 23 H, Creatinine 1.39 H, Estim Creat Clear Calc 48.74, Est GFR (MDRD) Af Amer 65, Est GFR (MDRD) Non-Af 54 L, BUN/Creatinine Ratio 16.5, Glucose 165 H, Calcium 7.9 L 04/02/19 08:45: Blood Type B POSITIVE, Antibody Screen NEGATIVE 04/02/19 08:45: Crossmatch See Detail Code Visit Inpatient E&M: 81858 Init Hosp L3
--- NOTE | 2019-04-02 12:43 | ECHOCS_ITS ---
Reason For Study: CHF Procedure This was a 2D Doppler, Color Flow transthoracic echocardiogram. Exam performed portable in patient room. Left Ventricle Normal LV size. Mild concentric left ventricular hypertrophy. Left ventricular systolic function is normal. The estimated ejection fraction is 60 %. Stage 2 diastolic dysfunction. No regional wall motion abnormalities noted. Right Ventricle Normal RV size. Normal systolic function. Atria The left atrium is mildly enlarged. Normal right atrium. Mitral Valve Mild focal mitral valve calcification of the anterior leaflet. Bileaflet diffuse mitral valve thickening. Mild (1+) eccentric mitral valve insufficiency. Tricuspid Valve Normal tricuspid valve. Mild (1+) tricuspid valve insufficiency. Aortic Valve Peak aortic valve gradient 12 mmHg. Mean aortic valve gradient 6 mmHg. Bioprosthetic aortic valve. Pulmonic Valve Normal pulmonic valve. Great Vessels Normal aortic root. The pulmonary artery is normal size. Normal inferior vena cava. Pericardium/Pleural No pericardial effusion. MMode/2D Measurements & Calculations LVIDd: 4.9 cm IVSd: 1.2 cm LVOT diam: 2.0 cm LVIDs: 3.1 cm LVPWd: 1.2 cm LVOT area: 3.2 cm2 RVDd: 3.5 cm FS: 35.7 % Ao root diam: 2.9 cm LAV(MOD-bp): 75.0 ml LA A4 area: 21.7 cm2 LAV(MOD-bp) Indexed: 40.2 ml/m2 LAV(MOD-sp2): 89.5 ml LAV(MOD-sp4): 61.6 ml LA dimension(2D): 5.0 cm RA A4 area: 15.5 cm2 Doppler Measurements & Calculations MV E max brenton: 134.6 cm/sec Lat Peak E' Brenton: 9.2 cm/sec Med Peak E' Brenton: 5.6 cm/sec MV A max brenton: 88.4 cm/sec E/E' lat: 14.7 E/E' med: 24.0 MV E/A: 1.5 Ao V2 max: 177.7 cm/sec LV V1 max: 149.4 cm/sec SV(LVOT): 90.9 ml Ao max P.6 mmHg LV V1 max P.9 mmHg Ao V2 mean: 115.5 cm/sec LV V1 mean P.4 mmHg Ao mean P.1 mmHg LV V1 mean: 98.5 cm/sec Ao V2 VTI: 33.1 cm LV V1 VTI: 28.7 cm TAMI(I,D): 2.7 cm2 TAMI(V,D): 2.7 cm2 PA V2 max: 80.9 cm/sec TR max brenton: 281.8 cm/sec TR max P.1 mmHg Interpretation Summary Normal LV size. Mild concentric left ventricular hypertrophy. Left ventricular systolic function is normal. The estimated ejection fraction is 60 %. Stage 2 diastolic dysfunction. Mild (1+) tricuspid valve insufficiency. The left atrium is mildly enlarged. Bioprosthetic aortic valve. Mean aortic valve gradient 6 mmHg. Ordering Physician: Arvind Ann Referring Physician: Arvind Ann Performed By: Odilia Gabriel, BIANCA, RVT
--- NOTE | 2019-04-02 12:47 | RAD_ITS ---
STUDY: X-RAY CHEST REASON FOR EXAM: Male, 69 years old. SOB. TECHNIQUE: Portable chest. COMPARISON: 02/10/2019. FINDINGS: The lungs are clear and expanded. There is no demonstrated pleural abnormality. Normal size heart. Sternotomy wires. Aortic stent graft. Atherosclerotic calcification of the aortic arch. Hilar and mediastinal shadows are otherwise normal. Soft tissues and bony structures are unremarkable. RAD/Chest 1 View (Portable) IMPRESSION: No acute findings. Electronically Signed: Bettina Olivarez MD at 22:17 EST Tel , Service support ,
--- NOTE | 2019-04-02 12:47 | EKG12_ITS ---
Test Reason : Blood Pressure : / mmHG Vent. Rate : 092 BPM Atrial Rate : 092 BPM P-R Int : 182 ms QRS Dur : 110 ms QT Int : 404 ms P-R-T Axes : 062 041 -53 degrees QTc Int : 499 ms Normal sinus rhythm Incomplete left bundle branch block Nonspecific ST and T wave abnormality Prolonged QT Abnormal ECG When compared with ECG of 11-FEB-2019 08:05, Premature ventricular complexes are no longer Present Confirmed by GOMEZ CONROY, MATTHEW ([id number]), news copy editor CARLOS ROBERTS ([id number]) on 04/03/2019 8:05:04 AM Referred By: Arvind Ann Confirmed By:MATTHEW DYER MD
[2019-04-02 13:41] LABS: BNP,B-Type NATRIURETIC PEPTIDE 393.5 pg/mL (0-100)
[2019-04-02] MEDS: 0.9% Saline Lock 10 ML Syringe IV (16:09)
[2019-04-02] MEDS: Atorvastatin Calcium 20 MG Tablet PO (22:01)
[2019-04-02] MEDS: Gabapentin 300 MG Capsule PO (22:01)
[2019-04-02] MEDS: Metoprolol Tartrate 25 MG Tablet PO (22:01)
[2019-04-02] MEDS: traZODone 50 MG Tablet 25 MG PO (22:07)
[2019-04-02 22:17] LABS: Hematocrit 21.2 % (40-54); Hemoglobin 6.7 g/dL (13.0-16.5)
[2019-04-03] VITALS (14 sets, daily range): BP systolic 100–120; BP diastolic 43–55; PULSE 80–95; RESP 16–18; TEMP 36.2–36.9; O2SAT 74–100
[2019-04-03 04:57] LABS: Absolute Lymphocyte Count 0.48 X10^3/uL (0.83-4.51); Absolute Neutrophil Count 2.4 X10^3/uL (2.0-7.7); Basophil# 0.01 X10^3/uL; Basophil% 0.3 % (0-1); Eosinophil# 0.03 X10^3/uL; Eosinophils% 0.9 % (0-5); Hematocrit 24.3 % (40-54); Hemoglobin 7.6 g/dL (13.0-16.5); Lymphocyte # 0.48 X10^3/ul (4.0); Mean Corp Hgb Conc 31.3 g/dL (32-36); Mean Corpuscular Hgb 28.3 pg (27.0-32.0); Mean Corpuscular Volume 90.3 fL (80-94); Mean Platelet Vol. 9.7 fl (6.2-12.0); Monocyte# 0.41 X10^3/uL; NRBC Flagged by Analyzer 0 % (0-5); Neutrophil # 2.44 X10^3/uL (2.7-7.7); Neutrophil % 71.3 % (47-70); POSITIVE COUNT YES; POSITIVE DIFFERENTIAL YES; POSITIVE MORPHOLOGY YES; Platelet Count 64 K/mm3 (150-450); RBC Distribution Width CV 20.3 % (11.6-14.6); RBC Distribution Width SD 65.3 fl (35.1-43.9); Red Blood Count 2.69 M/mm3 (4.6-6.2); White Blood Count 3.4 K/mm3 (4.4-11.0)
[2019-04-03 05:04] LABS: Differential Indicated SCAN CRITERIA MET
[2019-04-03 05:25] LABS: AST(SGOT) 27 U/L (15-37); Alanine Aminotransfer ALT/SGPT 24 U/L (16-61); Albumin, Serum 2.8 g/dL (3.2-5.0); Alkaline Phosphatase 57 U/L (45-117); Anion Gap 3 (5-15); BUN 20 mg/dL (7-18); BUN/Creat Ratio 17.9 RATIO (10-20); Bilirubin, Direct 0.44 mg/dL (0.00-0.30); Calcium,Total 7.9 mg/dL (8.5-10.1); Chloride 110 mmol/L (98-107); Creatinine, Serum 1.12 mg/dL (0.70-1.30); EST Glomerular Filtration Rate 69 mL/min (>60); Est Glom Filt Rate - Afr Amer 83 mL/min (>60); Estimated Creatinine Clearance 59.72 ml/min; Globulin 3.3 g/dL (2.2-4.2); Glucose 103 mg/dL (74-106); Protein, Total 6.1 g/dL (6.4-8.2); Sodium Level 141 mmol/L (136-145); Thyroid Stim Hormone (TSH) 4.15 uIU/mL (0.358-3.74)
[2019-04-03 06:55] LABS: Anisocytosis 2+; Differential Comment SCANNED
--- NOTE | 2019-04-03 09:38 | CASEMGMT ---
[facility]. Amando CARDENAS CM
[2019-04-03] MEDS: Sertraline 100 MG Tablet 150 MG PO (09:45)
[2019-04-03] MEDS: Metoprolol Tartrate 25 MG Tablet PO ×2 (09:45→21:20)
--- NOTE | 2019-04-03 11:19 | CASEMGMT ---
RN CM Assessment Introduced role of RN CM to patient.? Patient is alert, oriented and able?to participate in RN CM Assessment. ?Care providers, pharmacy, and demographics verified. Presentation: Epistaxis, Blurred Vision, Nausea, and hypotension. H/o Transfusion dependent anemia with myelodysplastic syndrome every 2-3weeks. Admit Dx: Epistaxis, Hypotension Re-Admit: No. Inpt 02/11-02/13/19 for Acute on Chronic Anemia Barriers/Issues: Patient states [facility], declines attempt for transfer this admission and signed form- given to primary CM Aisha Bueno to fax. States he is 100% benefitted. Private pays a Caregiver approx 4-5days/week for approx 4-5hrs/day. PCP: PCP at [facility]- Shannon Powers, [employer] Specialists: [facility] [place] (does not know name) Preferred Pharmacy: [facility] Insurance: [facility], [facility] A only Rx Benefit:?[facility] ?LNOK: Dtr Ita Weiner-lives in [place] LW/HPOA: None. Declines completion in this admission, agrees and provided advanced directive information with rack card, aware can return as an outpatient to complete with dept Living Arrangements:? Lives alone in a apartment, 4 steps to enter ADL?s: Ambulates with a 4ww or cane, Independent with ADLs. States recently showering has become difficult so he has been sponge bathing. Transportation: Drives self, denies transportation issues, states has a good support system. DME: Has safety bar in tub and extended shower head. Shower chair. Thinks has a Glucometer. Cane, 4ww. Denies any other DME. HHC: Past through the [facility] SNF: None. States his passed at one and that is his last resort to go to one. Goal: Home and does not think will have any additional needs. Denies any questions, concerns, or issues with planning at this time. Aware CM will continue to follow for any emerging needs and remains available. DC PLAN: Home, CM to f/u on Oxygen status for possible Home O2. SCOTTY Ramirez
--- NOTE | 2019-04-03 13:05 | DCINST_ITS ---
- Discharge Diagnoses Current Active Problems: Current Active and Chronic Problems Epistaxis (Acute) Pancytopenia (Acute) Acute on chronic anemia (Acute) MDS (myelodysplastic syndrome) (Chronic) You will use the following diet at home:: Cardiac Discharge Activity: Return to Normal Activity Call your doctor if you observe: Shortness of breath, Dizziness, Fainting spells, Chest pain Allergies/Adverse Reactions: Allergies No Known Allergies Allergy (Verified 04/02/19 08:09) Medications to take at Discharge Acetaminophen 325 mg PO Q6H PRN PRN 07/22/18 Atorvastatin Calcium 20 mg PO QHS 07/22/18 Cholecalciferol (Vitamin D3) [Vitamin D3] 2,000 unit PO DAILY 07/22/18 Gabapentin [Neurontin] 300 mg PO QHS 07/22/18 Metoprolol Tartrate [Lopressor (beta krystina)] 50 mg PO BID 07/22/18 Sertraline HCl 150 mg PO DAILY 07/22/18 traZODone [Desyrel] 25 mg PO QHS PRN 07/22/18 Epoetin Esteban-Epbx [Retacrit] 40,000 unit IJ UD 12/14/18 Amox/Clavulanate Tablet [Augmentin Tablet] 875 mg PO Q12H #14 tab 04/03/19 The following prescriptions were given: Amox/Clavulanate Tablet [Augmentin Tablet] 875 mg PO Q12H #14 tab Transmission Status: Pending to [facility] [Primary [facility] Provider] - Please follow up with your Primary Care Physician in: 3-5 Days Test Results: Test results from this visit will be discussed in further detail at your follow- up appointment, if applicable. Please Follow Up With: [facility] When: 1-2 Days, please make appt prior to DC Proposed Discharge Date: 04/03/19
--- NOTE | 2019-04-03 13:14 | PCM.DC.SUM ---
Discharge Date and Diagnosis Date of Admission: 04/02/19 Date of Discharge: 04/03/19 - Primary Discharge Diagnosis Active and Suspected Problems 1. Acute on chronic anemia secondary to MDS 2. Acute Epistaxis 3. CAD, history of CABG and stents 4. History of aortic valve repair 5. Depression/Anxiety 6. History of CVA - Secondary Discharge Diagnosis Chronic Problems Chronic anemia (Chronic) Depression (Chronic) Hyperlipidemia (Chronic) Status post coronary artery bypass graft (Chronic) Coronary artery disease (Chronic) Congestive heart failure (CHF) (Chronic) High output heart failure. MDS (myelodysplastic syndrome) (Chronic) Hospital Course and Treatment Imaging Results: Diagnostic Data Chest X-Ray 04/02/19 12:47 IMPRESSION: No acute findings. Electronically Signed: Bettina Olivarez MD at 22:17 EST Tel , Service support , Operations: None Procedures: 2-D Echocardiogram Summary of Care Provided: The patient is a 69 year old M admitted 04/02/19 due to epistaxis. 1. Acute on chronic anemia secondary to MDS, complicated by acute epistaxis-hemoglobin 5.1 on admission. Patient received 3 units PRBC. He receives outpatient transfusions routinely as outpatient. [facility]. 2. Acute Epistaxis, resolved-Rhino Rocket in the right nares, placed in ED. Follow-up with ENT in 1 to 2 days. Discharged on Augmentin 875 mg p.o. twice daily. 3. CAD, history of CABG and stents-continue statin, beta-maria esther. Previous aspirin and Plavix discontinued given recurrent epistaxis. 4. History of aortic valve repair- echo completed during admission, report pending. 5. Depression/Anxiety-continue sertraline, trazodone. 6. History of CVA- continue statin. General: Alert, Oriented x3, Cooperative HEENT: Atraumatic, PERRLA, EOMI, Normocephalic Oral: Dry Mucosa Neck: Supple, No JVD, Negative Carotid Bruits Lungs: Clear to auscultation, No rhonchi, No wheeze, No rales, Diminished - Entry is diminished in bilateral lung bases. Cardiovascular: Regular rate, Regular Rhythm, Normal S1, Normal S2, No murmurs Abdomen: Bowel Sounds Present, Soft, Non Tender, Non-Distended Extremities: No edema, Capillary Refill Less than 3 Seconds Skin: No rashes, No breakdown Musculoskeletal: No Tenderness to Palpation of Joints or Extremities, Arthritic Changes Neurological: Cranial nerves II-XII grossly intact, Deep Tendon Reflexes 2+/4 and Symmetrical, Neuro grossly intact Psych/Mental Status: Normal Affect, Appropriate Patient seen and examined prior to discharge. Physical assessment as noted above. Patient is stable for discharge with follow up recommendations as noted above. This patient was seen by RILEY Ramirez under the supervision of Dr. Dailey. - Physical Exam Vitals/I&O's: Vital Signs Temp Pulse Resp BP Pulse Ox 97.9 F 86 18 106/47 L 98 04/03/19 09:33 04/03/19 09:45 04/03/19 09:33 04/03/19 09:33 04/03/19 09:33 Oxygen Flow Rate (L/min) 2 Oxygen Delivery Method Room Air Weight: 158 lb 1.143 oz Body Mass Index (BMI) 22.7 Intake and Output for Last 24 Hours 04/01/19 04/02/19 04/03/19 23:59 23:59 23:59 Intake Total 3425 / 3425 520 / 520 Output Total 425 / 425 425 / 425 Balance 3000 / 3000 95 / 95 Laboratory Results 04/02/19 08:45: Crossmatch See Detail 04/02/19 08:45: Crossmatch See Detail 04/02/19 13:10: Troponin I < 0.015 04/02/19 13:10: B-Natriuretic Peptide 393.5 H 04/02/19 21:50: Hgb 6.7 L, Hct 21.2 L 04/03/19 04:44: WBC 3.4 L, RBC 2.69 L, Hgb 7.6 L, Hct 24.3 L, MCV 90.3, MCH 28.3, MCHC 31.3 L, RDW Std Deviation 65.3 H, RDW Coeff of Kriss 20.3 H, Plt Count 64 L, MPV 9.7, Immature Gran % (Auto) 1.500 H, Neut % (Auto) 71.3 H, Lymph % (Auto) 14.0 L, [place] % (Auto) 12.0 H, Eos % (Auto) 0.9, Baso % (Auto) 0.3, Absolute Neuts (auto) 2.4, Absolute Lymphs (auto) 0.48 L, Nucleated RBC % 0, Differential Comment SCANNED, Diff Path Review May foll, Anisocytosis 2+ 04/03/19 04:44: Sodium 141, Potassium 5.0, Chloride 110 H, Carbon Dioxide 28.0, Anion Gap 3 L, BUN 20 H, Creatinine 1.12, Estim Creat Clear Calc 59.72, Est GFR (MDRD) Af Amer 83, Est GFR (MDRD) Non-Af 69, BUN/Creatinine Ratio 17.9, Glucose 103, Calcium 7.9 L, Total Bilirubin 1.40 H, Direct Bilirubin 0.44 H, AST 27, ALT 24, Alkaline Phosphatase 57, Total Protein 6.1 L, Albumin 2.8 L, Globulin 3.3, TSH 4.15 H Current Medications Acetaminophen (Tylenol) 650 mg PO Q6H PRN PRN PRN Reason: Pain Score 1-3/Temp > 100.7 F Albuterol Sulfate (Ventolin Aerosols) 2.5 mg INHALATION Q2H PRN PRN PRN Reason: SOB/Wheezing Atorvastatin Calcium (Lipitor) 20 mg PO QHS [facility] Last Admin: 04/02/19 22:01 Dose: 20 mg Documented by: Cholecalciferol (Vitamin D) 2,000 unit PO DAILY [facility] Last Admin: 04/03/19 09:45 Dose: 2,000 unit Documented by: Dextrose (D50w Syringe) 0 gm IV X1 PRN; Protocol PRN Reason: Hypoglycemia Furosemide (Lasix) 40 mg IV X1 PRN PRN Reason: SOB BETWEEN PRBC TRANSFUSION Gabapentin (Neurontin) 300 mg PO QHS [facility] Last Admin: 04/02/19 22:01 Dose: 300 mg Documented by: Glucagon () 1 mg IM .X1 PRN PRN Reason: Hypoglycemia Guaifenesin (Robitussin) 20 ml PO Q4H PRN PRN PRN Reason: COUGH Metoprolol Tartrate (Lopressor (Beta Maria Esther)) 25 mg PO BID [facility] Last Admin: 04/03/19 09:45 Dose: 25 mg Documented by: Morphine Sulfate () 2 mg IV Q3H PRN PRN PRN Reason: Pain Score 6-10/10 Nitroglycerin (Nitrostat) 0.4 mg SUBLINGUAL Q5M PRN PRN Reason: CARDIAC/CHEST PAIN Nutritional Formula (Lactose Free) (Ensure Enlive) 120 ml PO 4X/DAY [facility] Last Admin: 04/03/19 09:41 Dose: Not Given Documented by: Ondansetron HCl (Zofran) 4 mg IV Q8H PRN PRN PRN Reason: NAUSEA/VOMITING Oxycodone HCl (Oxyir) 5 mg PO Q4H PRN PRN PRN Reason: Pain Score 4-5/10 Prochlorperazine Edisylate (Compazine Iv) 5 mg IV Q4H PRN PRN PRN Reason: Breakthrough Nausea/Vomiting Senna/Docusate Sodium (Senokot-S, Pinky-Colace) 2 tablet PO BID PRN PRN PRN Reason: Constipation Sertraline HCl (Zoloft) 150 mg PO DAILY [facility] Last Admin: 04/03/19 09:45 Dose: 150 mg Documented by: Sodium Chloride () 10 - 40 ml IV UD PRN PRN Reason: SALINE FLUSH Last Admin: 04/02/19 16:09 Dose: 20 ml Documented by: Throat Lozenges (Cepacol Sore Throat Lozenge) 1 lozenge MUCOUS MEM Q2H PRN PRN PRN Reason: Sore Throat/Cough Trazodone HCl (Desyrel) 25 mg PO QHS PRN PRN PRN Reason: SLEEP Last Admin: 04/02/19 22:07 Dose: 25 mg Documented by: Discharge Diet: Low fat/ Low Cholesterol Discharge Activity: Return to Normal Activity Call your doctor if you observe: Shortness of breath, Dizziness, Fainting spells, Chest pain Home Medications: Medications to take at Discharge Acetaminophen 325 mg PO Q6H PRN PRN 07/22/18 Atorvastatin Calcium 20 mg PO QHS 07/22/18 Cholecalciferol (Vitamin D3) [Vitamin D3] 2,000 unit PO DAILY 07/22/18 Gabapentin [Neurontin] 300 mg PO QHS 07/22/18 Metoprolol Tartrate [Lopressor (beta maria esther)] 50 mg PO BID 07/22/18 Sertraline HCl 150 mg PO DAILY 07/22/18 traZODone [Desyrel] 25 mg PO QHS PRN 07/22/18 Epoetin Esteban-Epbx [Retacrit] 40,000 unit IJ UD 12/14/18 Amox/Clavulanate Tablet [Augmentin Tablet] 875 mg PO Q12H #14 tab 04/03/19 Following Prescrptions Were Given to Patient: Amox/Clavulanate Tablet [Augmentin Tablet] 875 mg PO Q12H #14 tab Transmission Status: Pending to [facility] Primary Care Physician: [facility] [Primary Care Provider] - Please follow up with your Primary Care Physician in: 3-5 Days Please Follow Up With: [facility] When: 1-2 Days, please make appt prior to DC Disposition: Home Minutes spent on discharge:: 35 Patient Condition:: Stable Medical Necessity - Tobacco Use Smoking Status: Current every day smoker Meaningful Use Info Meaningful Use Diagnoses (Choose all that apply): None applicable
--- NOTE | 2019-04-03 14:28 | PHA.DC.MC ---
Pharmacy Service has performed discharge medication reconciliation and counseling for this patient. The patient's discharge medication list was reviewed for discrepancies and discrepancies were resolved. The patient was counseled on the following discharge medications and changes in medications for homegoing were reviewed. 1. AUGMENTIN The Reason for Use, instructions for use, and potential side effects were reviewed for all new medications. The patient's questions regarding all of their medications were answered. The patient was able to verbally demonstrate an understanding of their discharge medications.
--- NOTE | 2019-04-03 15:13 | NURSING ---
attempted to do walking oxygen test. Patient stated he didnt give a rats ass if the test said he needed oxygen he is not getting it and he will not wear it. Educated on importance of oxygen and symptom management. Notified Marcello, , and [employer] of refusal for oxygen
[2019-04-03 15:48] LABS: Pathologist Review Reviewed
--- NOTE | 2019-04-03 16:24 | PCM.PN.HOSP ---
Reason for Visit: f/u epistaxis Rhino Rocket in place and patient had no further epistaxis. Patient was ambulated and I was around 74% on room air but that was declining home oxygen as he has done previously. Patient just unhappy with his overall situation with the agent orange exposure and the relationship with his mild dysplastic syndrome. Vitals/I&O's: Vital Signs Temp Pulse Resp BP Pulse Ox 36.6 C 92 18 113/52 L 96 04/03/19 15:35 04/03/19 15:35 04/03/19 15:35 04/03/19 15:35 04/03/19 15:35 Oxygen Flow Rate (L/min) 2 Oxygen Delivery Method Nasal Cannula Weight: 71.7 kg Body Mass Index (BMI) 22.7 Intake and Output for Last 24 Hours 04/01/19 04/02/19 04/03/19 23:59 23:59 23:59 Intake Total 3425 / 3425 820 / 820 Output Total 425 / 425 925 / 925 Balance 3000 / 3000 -105 / -105 General: Alert, Cooperative, No apparent distress HEENT: Atraumatic, Normocephalic, - - Rhino Rocket in place Oral: Moist Mucosa, No Gingival or Mucosal Lesions/ Ulcerations Neck: No Nodes, Trachea Midline Lungs: Clear to auscultation, Normal air movement, No rhonchi, No wheeze, No rales Cardiovascular: Regular rate, Regular Rhythm, Normal S1, Normal S2 Abdomen: Bowel Sounds Present, Soft, Non Tender, Non-Distended, No Hepato-splenomegaly Extremities: No edema, No Calf Tenderness Psych/Mental Status: Normal Affect, Appropriate Laboratory Results 04/02/19 08:45: Diff Path Review Reviewed 04/02/19 08:45: Crossmatch See Detail 04/02/19 08:45: Crossmatch See Detail 04/02/19 21:50: Hgb 6.7 L, Hct 21.2 L 04/03/19 04:44: WBC 3.4 L, RBC 2.69 L, Hgb 7.6 L, Hct 24.3 L, MCV 90.3, MCH 28.3, MCHC 31.3 L, RDW Std Deviation 65.3 H, RDW Coeff of Kriss 20.3 H, Plt Count 64 L, MPV 9.7, Immature Gran % (Auto) 1.500 H, Neut % (Auto) 71.3 H, Lymph % (Auto) 14.0 L, [place] % (Auto) 12.0 H, Eos % (Auto) 0.9, Baso % (Auto) 0.3, Absolute Neuts (auto) 2.4, Absolute Lymphs (auto) 0.48 L, Nucleated RBC % 0, Differential Comment SCANNED, Diff Path Review May foll, Anisocytosis 2+ 04/03/19 04:44: Sodium 141, Potassium 5.0, Chloride 110 H, Carbon Dioxide 28.0, Anion Gap 3 L, BUN 20 H, Creatinine 1.12, Estim Creat Clear Calc 59.72, Est GFR (MDRD) Af Amer 83, Est GFR (MDRD) Non-Af 69, BUN/Creatinine Ratio 17.9, Glucose 103, Calcium 7.9 L, Total Bilirubin 1.40 H, Direct Bilirubin 0.44 H, AST 27, ALT 24, Alkaline Phosphatase 57, Total Protein 6.1 L, Albumin 2.8 L, Globulin 3.3, TSH 4.15 H Current Medications Acetaminophen (Tylenol) 650 mg PO Q6H PRN PRN PRN Reason: Pain Score 1-3/Temp > 100.7 F Albuterol Sulfate (Ventolin Aerosols) 2.5 mg INHALATION Q2H PRN PRN PRN Reason: SOB/Wheezing Atorvastatin Calcium (Lipitor) 20 mg PO QHS [facility] Last Admin: 04/02/19 22:01 Dose: 20 mg Documented by: Cholecalciferol (Vitamin D) 2,000 unit PO DAILY [facility] Last Admin: 04/03/19 09:45 Dose: 2,000 unit Documented by: Dextrose (D50w Syringe) 0 gm IV X1 PRN; Protocol PRN Reason: Hypoglycemia Furosemide (Lasix) 40 mg IV X1 PRN PRN Reason: SOB BETWEEN PRBC TRANSFUSION Gabapentin (Neurontin) 300 mg PO QHS [facility] Last Admin: 04/02/19 22:01 Dose: 300 mg Documented by: Glucagon () 1 mg IM .X1 PRN PRN Reason: Hypoglycemia Guaifenesin (Robitussin) 20 ml PO Q4H PRN PRN PRN Reason: COUGH Metoprolol Tartrate (Lopressor (Beta Maria Esther)) 25 mg PO BID [facility] Last Admin: 04/03/19 09:45 Dose: 25 mg Documented by: Morphine Sulfate () 2 mg IV Q3H PRN PRN PRN Reason: Pain Score 6-10/10 Nitroglycerin (Nitrostat) 0.4 mg SUBLINGUAL Q5M PRN PRN Reason: CARDIAC/CHEST PAIN Nutritional Formula (Lactose Free) (Ensure Enlive) 120 ml PO 4X/DAY [facility] Last Admin: 04/03/19 15:13 Dose: Not Given Documented by: Ondansetron HCl (Zofran) 4 mg IV Q8H PRN PRN PRN Reason: NAUSEA/VOMITING Oxycodone HCl (Oxyir) 5 mg PO Q4H PRN PRN PRN Reason: Pain Score 4-5/10 Prochlorperazine Edisylate (Compazine Iv) 5 mg IV Q4H PRN PRN PRN Reason: Breakthrough Nausea/Vomiting Senna/Docusate Sodium (Senokot-S, Pinky-Colace) 2 tablet PO BID PRN PRN PRN Reason: Constipation Sertraline HCl (Zoloft) 150 mg PO DAILY [facility] Last Admin: 04/03/19 09:45 Dose: 150 mg Documented by: Sodium Chloride () 10 - 40 ml IV UD PRN PRN Reason: SALINE FLUSH Last Admin: 04/02/19 16:09 Dose: 20 ml Documented by: Throat Lozenges (Cepacol Sore Throat Lozenge) 1 lozenge MUCOUS MEM Q2H PRN PRN PRN Reason: Sore Throat/Cough Trazodone HCl (Desyrel) 25 mg PO QHS PRN PRN PRN Reason: SLEEP Last Admin: 04/02/19 22:07 Dose: 25 mg Documented by: STROKE Vital Signs/Narrative: Vital Signs Temp Pulse Resp BP Pulse Ox 04/03/19 15:35 36.6 C 92 18 113/52 L 96 04/03/19 15:05 74 Medical Necessity - Tobacco Use Smoking Status: Current every day smoker Assessment/Plan All Active Problems Epistaxis (Acute) Pancytopenia (Acute) Acute on chronic anemia (Acute) 1. Epistaxis Secondary to thrombocytopenia as well as aspirin use Resolved with the Rhino Rocket Continue to hold aspirin Plan is for the patient to follow-up with ENT for eventual removal of the Rhino Rocket. 2. Acute blood loss anemia Improved after transfusion of 3 units of packed red blood cells Monitor Complicated by the patient's underlying myelodysplastic syndrome therefore unclear how much of the anemia was acute versus his chronic anemia as patient does get transfusions biweekly 3. Acute hypoxic respiratory insufficiency Unclear why. Chest x-ray was unremarkable Patient unwilling to have oxygen delivered to his house despite having pulse ox of 74% on room air Given patient's overall condition, hospice to meet with the patient on the 4. Myelodysplastic syndrome Will monitor his hemoglobin on the and transfuse as necessary If patient does not she is hospice then patient will need follow-up with oncology as outpatient 5. VTE prophylaxis with SCDs as chemical prophylaxis contraindicated in light of the thrombocytopenia and anemia and acute blood loss anemia 35 minutes of which greater than 50% of time was discussing with the patient about the epistaxis, outpatient plan Code Visit Inpatient E&M: 24930 Subs Hosp L3
--- NOTE | 2019-04-03 17:09 | NURSING ---
Call placed to Elie and notified that Meeting will be held with [facility] @ [phone]. Elie stated understanding and will be here for the meeting
[2019-04-03] MEDS: Ondansetron 4 MG/2 ML Vial IV (19:13)
[2019-04-03] MEDS: 0.9% Saline Lock 10 ML Syringe IV (19:14)
[2019-04-03] MEDS: Atorvastatin Calcium 20 MG Tablet PO (21:20)
[2019-04-03] MEDS: Gabapentin 300 MG Capsule PO (21:20)
[2019-04-03] MEDS: traZODone 50 MG Tablet 25 MG PO (23:17)
[2019-04-04] VITALS (14 sets, daily range): BP systolic 108–135; BP diastolic 50–59; PULSE 79–95; RESP 20; TEMP 36.6–37.2; O2SAT 93–98
[2019-04-04] MEDS: 0.9% Saline Lock 10 ML Syringe IV (03:09)
[2019-04-04 06:56] LABS: Absolute Lymphocyte Count 0.54 X10^3/uL (0.83-4.51); Absolute Neutrophil Count 3.9 X10^3/uL (2.0-7.7); Basophil# 0.01 X10^3/uL; Basophil% 0.2 % (0-1); Eosinophil# 0.02 X10^3/uL; Eosinophils% 0.4 % (0-5); Hematocrit 23.9 % (40-54); Hemoglobin 7.4 g/dL (13.0-16.5); Lymphocyte # 0.54 X10^3/ul (4.0); Lymphocyte % 10.4 % (19-41); Mean Corpuscular Hgb 28.5 pg (27.0-32.0); Mean Corpuscular Volume 91.9 fL (80-94); Monocyte# 0.63 X10^3/uL; Monocyte% 12.1 % (0-10); NRBC Flagged by Analyzer 0 % (0-5); Neutrophil # 3.92 X10^3/uL (2.7-7.7); Neutrophil % 75.6 % (47-70); POSITIVE COUNT YES; POSITIVE DIFFERENTIAL YES; POSITIVE MORPHOLOGY YES; Platelet Count 67 K/mm3 (150-450); RBC Distribution Width CV 20.6 % (11.6-14.6); RBC Distribution Width SD 67.7 fl (35.1-43.9); White Blood Count 5.2 K/mm3 (4.4-11.0)
[2019-04-04 07:04] LABS: Differential Indicated SCAN CRITERIA MET
[2019-04-04 07:54] LABS: Pathologist Review Reviewed
[2019-04-04 07:55] LABS: Anisocytosis 1+
[2019-04-04] MEDS: Metoprolol Tartrate 25 MG Tablet PO ×2 (12:15→21:31)
[2019-04-04] MEDS: Sertraline 100 MG Tablet 150 MG PO (12:15)
--- NOTE | 2019-04-04 13:00 | PN_ITS ---
<Elizabeth Lee - Last Filed: 04/04/19 13:08> Subjective: Patient seen and examined. Patient had meeting with friend/senior web applications developer, [facility]ie [facility]. Patient agreeable to home with hospice at [place]. Awaiting home O2 to be set up per hospice. Patient without further nasal bleeding or complaints. - Physical Exam Vitals/I&O's: Vital Signs Temp Pulse Resp BP Pulse Ox 98.4 F 89 20 H 116/56 L 94 04/04/19 12:07 04/04/19 12:15 04/04/19 12:07 04/04/19 12:07 04/04/19 12:07 Oxygen Flow Rate (L/min) 2 Oxygen Delivery Method Nasal Cannula Weight: 155 lb 6.814 oz Body Mass Index (BMI) 22.7 Intake and Output for Last 24 Hours 04/02/19 04/03/19 04/04/19 23:59 23:59 23:59 Intake Total 3425 / 3425 1160 / 1160 220 / 220 Output Total 425 / 425 1225 / 1225 500 / 500 Balance 3000 / 3000 -65 / -65 -280 / -280 General: Alert, Oriented x3, Cooperative HEENT: Atraumatic, PERRLA, EOMI, Normocephalic, - - rhino rocket intact Neck: Supple, No JVD, Negative Carotid Bruits Lungs: Clear to auscultation, Normal air movement Cardiovascular: Regular rate, Regular Rhythm, Normal S1, Normal S2, No murmurs Abdomen: Bowel Sounds Present, Soft, Non Tender, Non-Distended Extremities: No clubbing, No cyanosis, No edema, Capillary Refill Less than 3 Seconds Skin: No rashes, No breakdown Musculoskeletal: No Tenderness to Palpation of Joints or Extremities Neurological: Cranial nerves II-XII grossly intact, Neuro grossly intact Psych/Mental Status: Normal Affect, Appropriate Laboratory Results 04/02/19 08:45: Diff Path Review Reviewed 04/03/19 04:44: Diff Path Review Reviewed 04/04/19 06:40: WBC 5.2, RBC 2.60 L, Hgb 7.4 L, Hct 23.9 L, MCV 91.9, MCH 28.5, MCHC 31.0 L, RDW Std Deviation 67.7 H, RDW Coeff of Kriss 20.6 H, Plt Count 67 L, MPV 10.0, Immature Gran % (Auto) 1.300 H, Neut % (Auto) 75.6 H, Lymph % (Auto) 10.4 L, [place] % (Auto) 12.1 H, Eos % (Auto) 0.4, Baso % (Auto) 0.2, Absolute Neuts (auto) 3.9, Absolute Lymphs (auto) 0.54 L, Nucleated RBC % 0, Differential Comment COMMENT, Anisocytosis 1+ Current Medications Acetaminophen (Tylenol) 650 mg PO Q6H PRN PRN PRN Reason: Pain Score 1-3/Temp > 100.7 F Albuterol Sulfate (Ventolin Aerosols) 2.5 mg INHALATION Q2H PRN PRN PRN Reason: SOB/Wheezing Atorvastatin Calcium (Lipitor) 20 mg PO QHS [facility] Last Admin: 04/03/19 21:20 Dose: 20 mg Documented by: Cholecalciferol (Vitamin D) 2,000 unit PO DAILY [facility] Last Admin: 04/04/19 12:15 Dose: 2,000 unit Documented by: Dextrose (D50w Syringe) 0 gm IV X1 PRN; Protocol PRN Reason: Hypoglycemia Furosemide (Lasix) 40 mg IV X1 PRN PRN Reason: SOB BETWEEN PRBC TRANSFUSION Gabapentin (Neurontin) 300 mg PO QHS [facility] Last Admin: 04/03/19 21:20 Dose: 300 mg Documented by: Glucagon () 1 mg IM .X1 PRN PRN Reason: Hypoglycemia Guaifenesin (Robitussin) 20 ml PO Q4H PRN PRN PRN Reason: COUGH Metoprolol Tartrate (Lopressor (Beta Maria Esther)) 25 mg PO BID [facility] Last Admin: 04/04/19 12:15 Dose: 25 mg Documented by: Morphine Sulfate () 2 mg IV Q3H PRN PRN PRN Reason: Pain Score 6-10/10 Nitroglycerin (Nitrostat) 0.4 mg SUBLINGUAL Q5M PRN PRN Reason: CARDIAC/CHEST PAIN Nutritional Formula (Lactose Free) (Ensure Enlive) 120 ml PO 4X/DAY [facility] Last Admin: 04/04/19 08:20 Dose: Not Given Documented by: Ondansetron HCl (Zofran) 4 mg IV Q8H PRN PRN PRN Reason: NAUSEA/VOMITING Last Admin: 04/03/19 19:13 Dose: 4 mg Documented by: Oxycodone HCl (Oxyir) 5 mg PO Q4H PRN PRN PRN Reason: Pain Score 4-5/10 Prochlorperazine Edisylate (Compazine Iv) 5 mg IV Q4H PRN PRN PRN Reason: Breakthrough Nausea/Vomiting Senna/Docusate Sodium (Senokot-S, Pinky-Colace) 2 tablet PO BID PRN PRN PRN Reason: Constipation Sertraline HCl (Zoloft) 150 mg PO DAILY ALFA Last Admin: 04/04/19 12:15 Dose: 150 mg Documented by: Sodium Chloride () 10 - 40 ml IV UD PRN PRN Reason: SALINE FLUSH Last Admin: 04/04/19 03:09 Dose: 10 ml Documented by: Throat Lozenges (Cepacol Sore Throat Lozenge) 1 lozenge MUCOUS MEM Q2H PRN PRN PRN Reason: Sore Throat/Cough Trazodone HCl (Desyrel) 25 mg PO QHS PRN PRN PRN Reason: SLEEP Last Admin: 04/03/19 23:17 Dose: 25 mg Documented by: Medical Necessity - Tobacco Use Smoking Status: Current every day smoker Assessment/Plan All Active Problems Epistaxis (Acute) Pancytopenia (Acute) Acute on chronic anemia (Acute) 1. Acute blood loss anemia secondary to acute epistaxis, on chronic anemia secondary to MDS-hemoglobin 5.1 on admission. Patient received 3 units PRBC. He receives outpatient transfusions routinely as outpatient. Hemoglobin stable. 2. Acute Epistaxis, resolved-Rhino Rocket in the right nares, placed in ED. Follow-up with ENT in 1 to 2 days at discharge. Continue Augmentin 875 mg p.o. twice daily. 3. CAD, history of CABG and stents-continue statin, beta-maria esther. Previous aspirin and Plavix discontinued given recurrent epistaxis. 4. History of aortic valve repair-echo completed which demonstrated an EF of 60%, stage II diastolic dysfunction, mild tricuspid valve insufficiency. 5. Depression/Anxiety-continue sertraline, trazodone. 6. History of CVA- continue statin. 7. Chronic hypoxic respiratory insufficiency-patient noted to be hypoxic on room air and qualified for home supplemental oxygen. He is ambulatory in the home. Patient has been discharged with supplemental oxygen in the past however has refused to wear it. Patient is a long-term smoker and suspect undiagnosed COPD with chronic hypoxic respiratory failure. Continue supplement oxygen to maintain O2 above 90%. DVT prophylaxis- SCDs Discharge planning: Plan for home with hospice tomorrow pending O2 setup. This patient was seen by Elizabeth Lee NP-C under the supervision of Dr. Dailey. <Luke Dailey - Last Filed: 04/04/19 15:15> - Physical Exam Vitals/I&O's: Vital Signs Temp Pulse Resp BP Pulse Ox 36.9 C 89 20 H 116/56 L 94 04/04/19 12:07 04/04/19 12:15 04/04/19 12:07 04/04/19 12:07 04/04/19 12:07 Oxygen Flow Rate (L/min) 2 Oxygen Delivery Method Nasal Cannula Weight: 70.5 kg Body Mass Index (BMI) 22.7 Intake and Output for Last 24 Hours 04/02/19 04/03/19 04/04/19 23:59 23:59 23:59 Intake Total 3425 / 3425 1160 / 1160 220 / 220 Output Total 425 / 425 1225 / 1225 500 / 500 Balance 3000 / 3000 -65 / -65 -280 / -280 General: Alert, Cooperative HEENT: Atraumatic, PERRLA, Normocephalic, - Psych/Mental Status: Normal Affect, Appropriate Laboratory Results 04/02/19 08:45: Diff Path Review Reviewed 04/03/19 04:44: Diff Path Review Reviewed 04/04/19 06:40: WBC 5.2, RBC 2.60 L, Hgb 7.4 L, Hct 23.9 L, MCV 91.9, MCH 28.5, MCHC 31.0 L, RDW Std Deviation 67.7 H, RDW Coeff of Kriss 20.6 H, Plt Count 67 L, MPV 10.0, Immature Gran % (Auto) 1.300 H, Neut % (Auto) 75.6 H, Lymph % (Auto) 10.4 L, [place] % (Auto) 12.1 H, Eos % (Auto) 0.4, Baso % (Auto) 0.2, Absolute Neuts (auto) 3.9, Absolute Lymphs (auto) 0.54 L, Nucleated RBC % 0, Differential Comment COMMENT, Anisocytosis 1+ Current Medications Acetaminophen (Tylenol) 650 mg PO Q6H PRN PRN PRN Reason: Pain Score 1-3/Temp > 100.7 F Albuterol Sulfate (Ventolin Aerosols) 2.5 mg INHALATION Q2H PRN PRN PRN Reason: SOB/Wheezing Amoxicillin/Clavulanate Potassium (Augmentin Tablet) 875 mg PO BID [facility] Atorvastatin Calcium (Lipitor) 20 mg PO QHS [facility] Last Admin: 04/03/19 21:20 Dose: 20 mg Documented by: Cholecalciferol (Vitamin D) 2,000 unit PO DAILY [facility] Last Admin: 04/04/19 12:15 Dose: 2,000 unit Documented by: Dextrose (D50w Syringe) 0 gm IV X1 PRN; Protocol PRN Reason: Hypoglycemia Furosemide (Lasix) 40 mg IV X1 PRN PRN Reason: SOB BETWEEN PRBC TRANSFUSION Gabapentin (Neurontin) 300 mg PO QHS [facility] Last Admin: 04/03/19 21:20 Dose: 300 mg Documented by: Glucagon () 1 mg IM .X1 PRN PRN Reason: Hypoglycemia Guaifenesin (Robitussin) 20 ml PO Q4H PRN PRN PRN Reason: COUGH Metoprolol Tartrate (Lopressor (Beta Maria Esther)) 25 mg PO BID [facility] Last Admin: 04/04/19 12:15 Dose: 25 mg Documented by: Morphine Sulfate () 2 mg IV Q3H PRN PRN PRN Reason: Pain Score 6-10/10 Nitroglycerin (Nitrostat) 0.4 mg SUBLINGUAL Q5M PRN PRN Reason: CARDIAC/CHEST PAIN Nutritional Formula (Lactose Free) (Ensure Enlive) 120 ml PO 4X/DAY [facility] Last Admin: 04/04/19 08:20 Dose: Not Given Documented by: Ondansetron HCl (Zofran) 4 mg IV Q8H PRN PRN PRN Reason: NAUSEA/VOMITING Last Admin: 04/03/19 19:13 Dose: 4 mg Documented by: Oxycodone HCl (Oxyir) 5 mg PO Q4H PRN PRN PRN Reason: Pain Score 4-5/10 Prochlorperazine Edisylate (Compazine Iv) 5 mg IV Q4H PRN PRN PRN Reason: Breakthrough Nausea/Vomiting Senna/Docusate Sodium (Senokot-S, Pinky-Colace) 2 tablet PO BID PRN PRN PRN Reason: Constipation Sertraline HCl (Zoloft) 150 mg PO DAILY [facility]FA Last Admin: 04/04/19 12:15 Dose: 150 mg Documented by: Sodium Chloride () 10 - 40 ml IV UD PRN PRN Reason: SALINE FLUSH Last Admin: 04/04/19 03:09 Dose: 10 ml Documented by: Throat Lozenges (Cepacol Sore Throat Lozenge) 1 lozenge MUCOUS MEM Q2H PRN PRN PRN Reason: Sore Throat/Cough Trazodone HCl (Desyrel) 25 mg PO QHS PRN PRN PRN Reason: SLEEP Last Admin: 04/03/19 23:17 Dose: 25 mg Documented by: Assessment/Plan Patient seen and examined independently. Data reviewed. I agree with the above note by the nurse practitioner. 1. Epistaxis * Secondary to thrombocytopenia as well as aspirin use * Resolved with the Rhino Rocket * Continue to hold aspirin * Plan is for the patient to follow-up with ENT for eventual removal of the Rhino Rocket. 2. Acute blood loss anemia * Improved after transfusion of 3 units of packed red blood cells * Monitor * Complicated by the patient's underlying myelodysplastic syndrome therefore unclear how much of the anemia was acute versus his chronic anemia as patient does get transfusions biweekly 3. Acute hypoxic respiratory insufficiency * Unclear why. Chest x-ray was unremarkable * Patient unwilling to have oxygen delivered to his house despite having pulse ox of 74% on room air * Given patient's overall condition, hospice to meet with the patient on the 4. Myelodysplastic syndrome * Will monitor his hemoglobin on the and transfuse as necessary * If patient does not she is hospice then patient will need follow-up with oncology as outpatient 5. VTE prophylaxis with SCDs as chemical prophylaxis contraindicated in light of the thrombocytopenia and anemia and acute blood loss anemia Patient met with hospice and is in agreement to proceed with hospice. Plan is for the patient to go home with hospice on the . The reason discharge being delayed as the patient friend who helps open the house would not be available until the morning on the . The patient will need oxygen and other requirements at home's will initiate that in the morning of the . Advanced care planning: Spent an additional 20 is discussing with the patient and as well as his caregiver/friend about hospice and if he does not have oxygen he would likely . After much conversation and will respect the patient's wishes. Patient did agree to speaking with hospice. Code Visit Inpatient E&M: 97397 Subs Hosp L2 Procedures: 76323 Advncd Care Plan 30 Min
[2019-04-04] MEDS: Amox/Clavulanate 875 MG Tablet PO ×2 (15:55→21:31)
[2019-04-04] MEDS: Atorvastatin Calcium 20 MG Tablet PO (21:31)
[2019-04-04] MEDS: Gabapentin 300 MG Capsule PO (21:31)
[2019-04-05] VITALS (11 sets, daily range): BP systolic 109–130; BP diastolic 44–55; PULSE 80–103; RESP 18–20; TEMP 36.2–37.1; O2SAT 94–95
[2019-04-05 06:33] LABS: Absolute Neutrophil Count 3.5 X10^3/uL (2.0-7.7); Basophil# 0.01 X10^3/uL; Basophil% 0.2 % (0-1); Eosinophil# 0.03 X10^3/uL; Eosinophils% 0.7 % (0-5); Hematocrit 23.2 % (40-54); Lymphocyte % 8.8 % (19-41); Mean Corp Hgb Conc 30.2 g/dL (32-36); Mean Corpuscular Hgb 28.1 pg (27.0-32.0); Mean Corpuscular Volume 93.2 fL (80-94); Mean Platelet Vol. 11.2 fl (6.2-12.0); Monocyte# 0.53 X10^3/uL; Monocyte% 11.6 % (0-10); NRBC Flagged by Analyzer 0 % (0-5); Neutrophil % 76.9 % (47-70); POSITIVE COUNT YES; POSITIVE DIFFERENTIAL YES; POSITIVE MORPHOLOGY YES; Platelet Count 75 K/mm3 (150-450); RBC Distribution Width CV 20.7 % (11.6-14.6); RBC Distribution Width SD 69.8 fl (35.1-43.9); Red Blood Count 2.49 M/mm3 (4.6-6.2); White Blood Count 4.6 K/mm3 (4.4-11.0)
[2019-04-05 06:37] LABS: Differential Indicated SCAN CRITERIA MET
[2019-04-05 07:14] LABS: Differential Comment SCANNED; Microcytosis 2+; Ovalocyte 1+
[2019-04-05] MEDS: Metoprolol Tartrate 25 MG Tablet PO (10:39)
[2019-04-05] MEDS: Amox/Clavulanate 875 MG Tablet PO (10:39)
[2019-04-05] MEDS: Sertraline 100 MG Tablet 150 MG PO (10:40)
--- NOTE | 2019-04-05 14:52 | PN_ITS ---
Reason for Visit: epistaxis Subjective: no further events. awaiting on coordination of friend, hospice and oxygen for discharge. Vitals/I&O's: Vital Signs Temp Pulse Resp BP Pulse Ox 36.6 C 96 18 130/51 H 94 04/05/19 13:59 04/05/19 13:59 04/05/19 13:59 04/05/19 13:59 04/05/19 13:59 Oxygen Flow Rate (L/min) 2 Oxygen Delivery Method Nasal Cannula Weight: 70.5 kg Body Mass Index (BMI) 22.7 Intake and Output for Last 24 Hours 04/03/19 04/04/19 04/05/19 23:59 23:59 23:59 Intake Total 1160 / 1160 460 / 860 920 / 920 Output Total 1225 / 1225 850 / 1175 525 / 525 Balance -65 / -65 -390 / -315 395 / 395 General: Alert, No apparent distress HEENT: Atraumatic, Normocephalic, - - rhino rocket in right nares Neck: No Nodes, Trachea Midline Lungs: Clear to auscultation, Normal air movement, No rhonchi, No wheeze Cardiovascular: Regular rate, Regular Rhythm, Normal S1, Normal S2 Abdomen: Bowel Sounds Present, Soft, Non Tender, Non-Distended, No Hepato- splenomegaly Extremities: No edema, No Calf Tenderness Skin: No rashes, No breakdown Psych/Mental Status: Normal Affect, Appropriate Laboratory Results 04/05/19 05:45: WBC 4.6, RBC 2.49 L, Hgb 7.0 L, Hct 23.2 L, MCV 93.2, MCH 28.1, MCHC 30.2 L, RDW Std Deviation 69.8 H, RDW Coeff of Kriss 20.7 H, Plt Count 75 L, MPV 11.2, Immature Gran % (Auto) 1.800 H, Neut % (Auto) 76.9 H, Lymph % (Auto) 8.8 L, [place] % (Auto) 11.6 H, Eos % (Auto) 0.7, Baso % (Auto) 0.2, Absolute Neuts (auto) 3.5, Absolute Lymphs (auto) 0.40 L, Nucleated RBC % 0, Differential Comment SCANNED, Microcytosis 2+, Ovalocytes 1+ 04/05/19 07:35: Blood Type B POSITIVE, Antibody Screen NEGATIVE, Crossmatch See Detail Current Medications Acetaminophen (Tylenol) 650 mg PO Q6H PRN PRN PRN Reason: Pain Score 1-3/Temp > 100.7 F Albuterol Sulfate (Ventolin Aerosols) 2.5 mg INHALATION Q2H PRN PRN PRN Reason: SOB/Wheezing Amoxicillin/Clavulanate Potassium (Augmentin Tablet) 875 mg PO BID ON LICENSE OF [facility] Last Admin: 04/05/19 10:39 Dose: 875 mg Documented by: Atorvastatin Calcium (Lipitor) 20 mg PO QHS ON LICENSE OF [facility] Last Admin: 04/04/19 21:31 Dose: 20 mg Documented by: Cholecalciferol (Vitamin D) 2,000 unit PO DAILY ON LICENSE OF [facility] Last Admin: 04/05/19 10:40 Dose: 2,000 unit Documented by: Furosemide (Lasix) 40 mg IV X1 PRN PRN Reason: SOB BETWEEN PRBC TRANSFUSION Gabapentin (Neurontin) 300 mg PO QHS ON LICENSE OF [facility] Last Admin: 04/04/19 21:31 Dose: 300 mg Documented by: Glucagon () 1 mg IM .X1 PRN PRN Reason: Hypoglycemia Guaifenesin (Robitussin) 20 ml PO Q4H PRN PRN PRN Reason: COUGH Dextrose (Dextrose 10%-Water) 250 mls @ 999 mls/hr IV X1 PRN; Protocol PRN Reason: HYPOGLYCEMIA Metoprolol Tartrate (Lopressor (Beta Maria Esther)) 25 mg PO BID ON LICENSE OF [facility] Last Admin: 04/05/19 10:39 Dose: 25 mg Documented by: Morphine Sulfate () 2 mg IV Q3H PRN PRN PRN Reason: Pain Score 6-10/10 Nitroglycerin (Nitrostat) 0.4 mg SUBLINGUAL Q5M PRN PRN Reason: CARDIAC/CHEST PAIN Nutritional Formula (Lactose Free) (Ensure Enlive) 120 ml PO 4X/DAY ON LICENSE OF [facility] Last Admin: 04/05/19 13:03 Dose: 120 ml Documented by: Ondansetron HCl (Zofran) 4 mg IV Q8H PRN PRN PRN Reason: NAUSEA/VOMITING Last Admin: 04/03/19 19:13 Dose: 4 mg Documented by: Oxycodone HCl (Oxyir) 5 mg PO Q4H PRN PRN PRN Reason: Pain Score 4-5/10 Prochlorperazine Edisylate (Compazine Iv) 5 mg IV Q4H PRN PRN PRN Reason: Breakthrough Nausea/Vomiting Senna/Docusate Sodium (Senokot-S, Pinky-Colace) 2 tablet PO BID PRN PRN PRN Reason: Constipation Sertraline HCl (Zoloft) 150 mg PO DAILY [facility] Last Admin: 04/05/19 10:40 Dose: 150 mg Documented by: Sodium Chloride () 10 - 40 ml IV UD PRN PRN Reason: SALINE FLUSH Last Admin: 04/04/19 03:09 Dose: 10 ml Documented by: Throat Lozenges (Cepacol Sore Throat Lozenge) 1 lozenge MUCOUS MEM Q2H PRN PRN PRN Reason: Sore Throat/Cough Trazodone HCl (Desyrel) 25 mg PO QHS PRN PRN PRN Reason: SLEEP Last Admin: 04/03/19 23:17 Dose: 25 mg Documented by: STROKE Vital Signs/Narrative: Vital Signs Temp Pulse Resp BP Pulse Ox 04/05/19 13:59 36.6 C 96 18 130/51 H 94 04/05/19 12:59 37.1 C 95 18 127/48 H 95 04/05/19 12:00 36.6 C 96 18 126/44 H 94 04/05/19 11:45 37.1 C 103 H 20 H 125/46 H 95 Medical Necessity - Tobacco Use Smoking Status: Current every day smoker Assessment/Plan All Active Problems Epistaxis (Acute) Pancytopenia (Acute) Acute on chronic anemia (Acute) 1. Epistaxis * Secondary to thrombocytopenia as well as aspirin use * Resolved with the Rhino Rocket * Continue to hold aspirin * Rhino Rocket removed today as he had it in place for around 72h * no need to follow up with ENT 2. Acute blood loss anemia * Improved after transfusion of 3 units of packed red blood cells * Monitor * Complicated by the patient's underlying myelodysplastic syndrome therefore unclear how much of the anemia was acute versus his chronic anemia as patient does get transfusions biweekly * will give an additional unit today for palliation and his hg has drifted down to 7. 3. Acute hypoxic respiratory insufficiency * Unclear why. Chest x-ray was unremarkable * Patient unwilling to have oxygen delivered to his house despite having pulse ox of 74% on room air * Given patient's overall condition, hospice to meet with the patient on the 4. Myelodysplastic syndrome * Will monitor his hemoglobin on the and transfuse as necessary * If patient does not she is hospice then patient will need follow-up with oncology as outpatient 5. VTE prophylaxis with SCDs as chemical prophylaxis contraindicated in light of the thrombocytopenia and anemia and acute blood loss anemia Patient met with hospice and is in agreement to proceed with hospice. Plan is for the patient to go home with hospice on the . The reason discharge being delayed as the patient friend who helps open the house would not be available until the morning on the . The patient will need oxygen and other requirements at home's will initiate that in the morning of the . Code Visit Inpatient E&M: 18866 Disch Hosp
--- NOTE | 2019-04-05 14:53 | CASEMGMT ---
After some miscommunication everything was worked out. Patient will be ready to leave the hospital around 245p. His friend, Elie will pick him up and bring the portable O2 that Hospice dropped off. Hospice will meet with patient and Elie at his home at 4p. SW notified RN, patient, and Elie. [place] faxed d/c summary to Hospice. Plan: home with [facility]. Vonnie KIMBALL MSW
== END 2019-04-05 15:26 | disposition hospice, home (50) | DRG 812 ==
LOC: ED 09:34 → PCU 10:41
PROVIDERS: Admitting Provider Internal Medicine; Emergency Provider Emergency Medicine; Referring Provider Internal Medicine
DX: D62 Acute posthemorrhagic anemia (principal); J96.11 Chronic respiratory failure with hypoxia; R04.0 Epistaxis; D63.8 Anemia in other chronic diseases classified elsewhere; D46.9 Myelodysplastic syndrome, unspecified; I25.10 Atherosclerotic heart disease of native coronary artery without angina pectoris; Z66 Do not resuscitate; F17.210 Nicotine dependence, cigarettes, uncomplicated; I07.1 Rheumatic tricuspid insufficiency; F41.9 Anxiety disorder, unspecified; F32.9 Major depressive disorder, single episode, unspecified; D61.818 Other pancytopenia; J44.9 Chronic obstructive pulmonary disease, unspecified; Z51.5 Encounter for palliative care; I50.9 Heart failure, unspecified; Z95.5 Presence of coronary angioplasty implant and graft; Z79.01 Long term (current) use of anticoagulants; Z95.1 Presence of aortocoronary bypass graft; Z86.73 Personal history of transient ischemic attack (TIA), and cerebral infarction without residual deficits
CPT/HCPCS: 36415; 71045; 80048; 80076; 83880; 84443; 84484; 85014; 85018; 85025; 85027; 85610; 86850; 86900; 86901; 86920; 86922; 93005; 93306; 97162; 97802; 99251; 99285; J7030; J7120; P9016; A4216; C8929; G0463; J2405

== ENCOUNTER 2019-04-07 10:22 | Emergency (ER) | payer OTHER, SELFPAY ==
[2019-04-02 11:44] VITALS: BMI 22.7
[2019-04-07 10:23] VITALS: BP 138/65; PULSE 77; RESP 20; TEMP 36.1; O2SAT 92; BMI 23.3
--- NOTE | 2019-04-07 10:54 | ED.DCSUM_ITS ---
History of Present Illness Chief Complaint: Nosebleed Informant: Patient Onset: Today Context: Sudden Onset Timing: Continuous Narrative: Patient is a 69-year-old male with history of myelodysplastic syndrome, chronic anemia requiring regular transfusions and epistaxis presenting with nosebleed. Patient states this morning he was sitting in his chair when suddenly his nose started bleeding. He states he did not blow his nose or anything. He waited about an hour and then came to the emergency room. Patient states he was in hospice care. He was just admitted and received 4 units of packed red blood cells for acute blood loss anemia secondary to epistaxis. He does not think he is followed up with an ear nose and throat doctor. Patient currently denies any complaints at this time. He states he does not feel lightheaded or overly weak. Patient is not currently on any anticoagulation. Past Medical History - Allergies and Home Meds Allergies/Adverse Reactions: Allergies No Known Allergies Allergy (Verified 04/07/19 10:28) Primary Care Physician: Mark Garcia MD [STAFF PHYSICIAN] - [place], [place] [Primary Care Provider] - Past Medical History: - - Myelodysplastic syndrome, chronic anemia, epistaxis, Chronic hypoxia, CHF, depression, hyperlipidemia Surgical History: coronary bypass surgery, - - Aortic valve replacement Smoking Status: Current every day smoker - Family History Maternal Family History: Reports: - - carotid artery disease Paternal Family History: Reports: Cancer - Lung Review of Systems General: Denies: Chills, Fever, Sweats Eyes: Denies: Visual changes - bilaterally, Diplopia ENT: Reports: - - Nosebleed. Denies: Rhinorrhea, Sore throat Cardiovascular: Denies: Chest pain, Palpitations Respiratory: Denies: Dyspnea, Cough, Dyspnea on exertion Gastrointestinal: Denies: Abdominal pain, Nausea, Vomiting, Diarrhea, Melena, Hematochezia Genitourinary: Denies: Dysuria, Hematuria, Frequency Musculoskeletal: Denies: Back pain, Extremity Pain Skin: Denies: Rash, Wounds Neurological: Denies: Headache, Weakness, Numbness Physical Exam Vital Signs/Narrative: Vital Signs Temp Pulse Resp BP Pulse Ox 04/07/19 10:23 97.0 F L 77 20 H 138/65 H 92 Inital Vital Signs reviewed: Yes General: Well nourished, Well developed, No Acute Distress Head: Normocephalic, Atraumatic Eyes: Perrl, EOMI ENT: Moist mucous membranes, - - Epistaxis from the right side, source of bleeding is not visualized. No blood noted in oropharynx. Patient is a large clots that are blown out prior to exam. Neck: Supple, Nontender Cardiovascular: Regular rate, Regular rhythm, No murmurs Respiratory: No distress, CTA bilaterally, Chest nontender Abdomen: Soft, Nontender, Nondistended, Normal bowel sounds Back: Nontender, Normal Inspection Extremities: Nontender, No edema Skin: Normal color, No rash Neurological: Alert, Oriented x3, Cranial nerves II-XII grossly intact, Normal Strength, Normal Sensation Psychological: Normal affect, Normal Mood Diagnostic/Tx/Re-eval - Medical Decision Making Patient is evaluated for epistaxis. It started 1 hour prior to arrival. Patient is hemodynamically stable. He does have bleeding that appears to be coming out of his right naris. This is the same site as bleeding was on last week. Patient does not appear pale and I am not concerned for acute blood loss anemia at this time. He states he does not feel as bad as he did last time either. Bleeding is controlled with nasal packing and Afrin. On reevaluation patient has no further bleeding. Patient will be discharged home on a course of Augmentin until the packing can be removed. He is referred to ENT on-call, Dr. Garcia. Patient tolerated the nasal packing well. Patient is counseled on signs and symptoms requiring return to the emergency room. Patient verbalizes agreement and understand this plan. Patient discharged home in stable and improved condition. Procedures Procedure(s): Nasal packing. Patient expelled all clots from his nose. Afrin is sprayed into both nares. A 7.5 cm Rhino Rocket is placed in the right nares. Patient tolerated well. Approximately 5 cc of air was used to inflate the balloon. Patient has no further bleeding. Patient tolerated procedure well with no immediate complications. ED Disposition - Plan for ED Patient: Disposition: Home or Assisted Living Diagnosis: Epistaxis Instructions: Nosebleed Prescriptions: Amoxicillin/Potassium Clav [Augmentin 875-125 Tablet] 1 ea PO BID #20 tab Prescription Printed Referrals: [facility] [Primary Care Provider] - Mark Garcia MD [STAFF PHYSICIAN] - Additional Instructions: Call the ENT office on Wednesday to arrange follow-up next week sometime for the packing to be removed. Even if they do not take his insurance they should see him at least once since he was an ER patient. Mr. Weiner needs to take the antibiotics until the packing is removed. Return emergency room with any worsening symptoms.
[2019-04-07] MEDS: Oxymetazoline 0.05% 1 SPRAY SPRAY.BTL 2 SPRAY NASAL (12:12)
[2019-04-07 13:12] VITALS: BP 128/62
--- NOTE | 2019-04-07 13:12 | ED.RN ---
spoke with Elio from Hospice to update. pt will be discharged. Elio is calling pt's friend to give him a ride home.
--- NOTE | 2019-04-07 14:15 | ED.RN ---
friend unable to give ride d/t car issues. [facility] arrived for transport.
== END 2019-04-07 14:16 | disposition home or self-care (01) ==
PROVIDERS: Emergency Provider Emergency Medicine
DX: R04.0 Epistaxis (principal); D46.9 Myelodysplastic syndrome, unspecified; I50.9 Heart failure, unspecified; E78.5 Hyperlipidemia, unspecified; F32.9 Major depressive disorder, single episode, unspecified; F17.200 Nicotine dependence, unspecified, uncomplicated; Z79.899 Other long term (current) drug therapy; Z95.2 Presence of prosthetic heart valve; Z95.1 Presence of aortocoronary bypass graft
CPT/HCPCS: 30901; 99282; J7030; A4216